=== PATIENT | female | born 1940 | race Caucasian/White ===

== ENCOUNTER 2017-12-11 12:19 | Inpatient (IN) | payer OTHER ==
[2017-12-11 14:10] LABS: Absolute Lymphocytes (CBC) 1.6 K/uL (0.7-4.9); Absolute Monocytes 1.3 K/uL (0.1-1.3); Absolute Neutrophil 16.3 K/uL (1.8-8.0); Basophils % 0.7 % (0-1.3); Eosinophils % 4.1 % (0-4.4); Hematocrit 28.7 % (36.0-45.0); MCH 26.8 pg (27.0-35.0); MPV 7.3 fL (7.6-11.3); Monocytes % 6.6 % (3.3-12.3); RBC Red Blood Cell Count 3.33 M/uL (3.86-4.86)
[2017-12-11 14:11] LABS: Potassium 4.5 mEq/L (3.6-5.0)
[2017-12-11 14:17] LABS: Albumin 2.8 g/dL (3.2-5.5); Bilirubin Direct 0.1 mg/dL (0-0.2); Bilirubin Total 0.7 mg/dL (0.3-1.2); Protein, Total 8.1 g/dL (6.0-8.3)
[2017-12-11] MEDS ORDERED: NA CHLORIDE 0.9% 500 ML ONE ×2 (14:18→18:49)
[2017-12-11 16:31] LABS: Urine Blood 3+ (NEG); Urine Glucose NEGATIVE (NEG); Urine Protein 3+ (NEG)
--- NOTE | 2017-12-11 16:42 | RAD REPORT ---
EXAM DESCRIPTION: Beth Single View12/11/2017 4:33 pm CLINICAL HISTORY: Cough COMPARISON: August 2017 FINDINGS: The lungs appear clear of acute infiltrate. The heart is normal size. Right hemidiaphragm remains elevated IMPRESSION: No acute abnormalities displayed
[2017-12-11 16:44] LABS: Urine Bacteria >50 /HPF (<20); Urine Culture Reflex Order REFLEXED; Urine RBC 20-50 /HPF (NONE SEEN)
[2017-12-11 17:42] LABS: Protime INR 1.23
--- NOTE | 2017-12-11 18:08 | ER ---
Nurse's Notes [facility] Name: Leslie Crockett Age: 77 yrs Sex: Female : 1940 Arrival Date: 12/11/2017 Time: 12:21 Bed 5 Private MD: Diagnosis: Urinary tract infection, site not specified-Failed antibiotic therapy;Anemia, unspecified;Dehydration;Acute kidney failure Presentation: 12/11 12:22 Presenting complaint: EMS states: Pt sent from [place] for abnormal lab ph values/elevated creatinine, hx of CVA w/ R sided deficits, A\T\O x 1-2 at baseline, VSS en route. Transition of care: patient was not received from another setting of care. Onset of symptoms was December 11, 2017. Risk Assessment: Do you want to hurt yourself or someone else? Patient reports no desire to harm self or others. Initial Sepsis Screen: Does the patient meet any 2 criteria? No. Patient's initial sepsis screen is negative. Does the patient have a suspected source of infection? No. Patient's initial sepsis screen is negative. Care prior to arrival: None. 12:22 Method Of Arrival: EMS: [facility] ph 12:22 Acuity: CINTHIA 3 ph Historical: - Allergies: 12:54 Iodine; ph 12:54 PENICILLINS; ph 12:54 sulfamethoxazole-trimethoprim; ph - Home Meds: 12:54 ascorbic acid (vitamin C) 500 mg tab [Active]; Baclofen 5mg Oral twice a day [Active]; ph Arginaid 4.5 gram-156 mg/9.2 gram oral pwpk [Active]; Cipro 500 mg Oral tab 1 tab every 12 hours [Active]; Cytomel 25 mcg Oral tab 1 tab once daily [Active]; levothyroxine 50 mcg tab 1 tab once daily [Active]; atorvastatin 40 mg Oral tab 1 tab once daily [Active]; hydrocodone-acetaminophen 10-325 mg Oral tab 1 tab Q8H PRN [Active]; metoprolol tartrate 50 mg Oral tab 1 tab 2 times per day [Active]; levothyroxine 50 mcg tab 1 tab once daily [Active]; Zoloft 50 mg Oral tab 1 tab once daily [Active]; Topamax Oral 1 tab 2 times per day [Active]; simethicone 80 mg Oral chew [Active]; temazepam 15 mg Oral cap 1 cap once daily [Active]; lisinopril 10 mg Oral tab 1 tab once daily [Active]; Plavix 75 mg Oral tab 1 tab once daily [Active]; famotidine 20 mg Oral tab once daily [Active]; calcium carbonate 200 mg calcium (500 mg) Oral chew daily [Active]; gabapentin 300 mg Oral cap 1 cap nightly [Active]; zinc sulfate 220 mg Oral tab [Active]; Naprosyn 500 mg Oral tab 1 tab 2 times per day [Active]; - PMHx: 12:54 Allergic rhinitis; Anxiety; constipation; CVA; Depression; GERD; hemiparesis; following ph 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 - Social history:: Smoking status: unknown. - Ebola Screening: : No symptoms or risks identified at this time. Screenin:54 Abuse screen: Denies threats or abuse. Denies injuries from another. Nutritional ph screening: No deficits noted. Tuberculosis screening: No symptoms or risk factors identified. Fall Risk No fall in past 12 months (0 pts). Secondary diagnosis (15 points) CVA, IV access (20 points). Ambulatory Aid- None/Bed Rest/Nurse Assist (0 pts). Gait- Weak (10 pts.). Mental Status- Overestimates/Forgets Limitations (15 pts.). Total Clark Fall Scale indicates High Risk Score (45 or more points). Fall prevention measures have been instituted. Side Rails Up X 2 Placed Close to Nursing Station Frequent Obs/Assessments Occuring. Assessment: 12:50 General: Appears in no apparent distress. comfortable, Behavior is cooperative, quiet. ph Pain: Denies pain. Neuro: Level of Consciousness is awake, alert, obeys commands, Oriented to person, Speech with expressive aphasia noted, hx of CVA. Cardiovascular: Capillary refill is > 3 seconds Patient's skin is warm and dry. Respiratory: Airway is patent Respiratory effort is even, unlabored. GI: Derm: Skin is intact, is fragile, is thin, Skin is pink, warm \T\ dry. Musculoskeletal: Circulation, motion, and sensation intact. Range of motion: limited in lower extremeties. 14:00 Reassessment: Patient appears in no apparent distress at this time. Pt resting quietly, ph watching TV, VSS, will continue to monitor. 15:00 Reassessment: Patient appears in no apparent distress at this time. Patient and/or ph family updated on plan of care and expected duration. Pain level reassessed. Pt straight cathed to obtain urine, tolerated well, urine very cloudy w/ strong odor noted, pt cleaned of urine and clean brief in place. 17:15 Reassessment: Patient appears in no apparent distress at this time. Patient and/or ph family updated on plan of care and expected duration. Pain level reassessed. Pt resting quietly lab at bedside to draw blood, VSS, awaiting lab results. 18:26 Reassessment: Patient appears in no apparent distress at this time. Patient and/or ph family updated on plan of care and expected duration. Pain level reassessed. Pt resting quietly, awaiting room assignment, VSS. 18:59 Reassessment: Patient appears in no apparent distress at this time. Patient and/or ph family updated on plan of care and expected duration. Pain level reassessed. Pt sitting up in bed, eating dinner, tolerating well. 19:41 Reassessment: Patient appears in no apparent distress at this time. Patient and/or aa1 family updated on plan of care and expected duration. Pain level reassessed. Patient denies pain at this time. Reassessment: Report given to Camelia on 4th floor. Neuro: Level of Consciousness is awake, alert, obeys commands. Respiratory: Respiratory effort is even, unlabored. Derm: Skin is pink, warm \T\ dry. Vital Signs: 12:26 BP 131 / 77; Pulse 68; Resp 18; Temp 97.7; Pulse Ox 100% on R/A; ph 14:00 BP 118 / 76; Pulse 68; Resp 18; Pulse Ox 98% on R/A; ph 15:15 BP 127 / 69; Pulse 61; Resp 18; Pulse Ox 98% on R/A; ph 16:30 BP 132 / 61; Pulse 72; Resp 18; Pulse Ox 99% on R/A; ph 17:47 BP 134 / 59; Pulse 88; Resp 18; Pulse Ox 98% on R/A; ph 18:30 BP 125 / 52; Pulse 78; Resp 16; Temp 98.7; Pulse Ox 98% on R/A; ph 19:40 BP 112 / 52; Pulse 80; Resp 18; Temp 98.8; Pulse Ox 100% on R/A; Pain 0/10; bp ED Course: 12:21 Patient arrived in ED. ph 12:22 Bright Rodriguez, WOVEN LABEL DESIGNER is PHCP. pm1 12:22 Darian Hsu MD is Attending Physician. pm1 12:26 Triage completed. ph 12:29 Kimberly Lovett, RN is Primary Nurse. ph 12:54 Arm band placed on Patient placed in an exam room. ph 12:55 Patient has correct armband on for positive identification. Placed in gown. Bed in low ph position. Call light in reach. Side rails up X 1. Pulse ox on. NIBP on. Warm blanket given. 13:50 Initial lab(s) drawn, by nc, sent to lab. Missed attempt(s): 22 gauge in left forearm. ph Bleeding controlled, band aid applied, catheter tip intact. 14:15 Straight cath inserted, using sterile technique, 16 Fr. Specimen obtained. Returned ph cloudy urine. Patient tolerated well. 14:40 Inserted saline lock: 22 gauge in left hand, using aseptic technique. ph 16:32 Chest Single View XRAY In Process Unspecified. EDMS 16:33 EKG done, by technology methodology consultant. reviewed by Bright Rodriguez NP. 3 17:49 No provider procedures requiring assistance completed. Patient admitted, IV remains in ph place. 18:04 Tamir Presley MD is Hospitalizing Provider. pm1 Administered Medications: 14:45 Drug: NS 0.9% 500 ml Route: IV; Rate: bolus; Site: left hand; ph 18:31 Follow up: Response: No adverse reaction; IV Status: Completed infusion ph 19:19 Drug: NS 0.9% 500 ml Route: IV; Rate: bolus; Site: left hand; ph 19:43 Follow up: IV Status: Infusion continued upon admission aa1 19:32 Drug: Meropenem 500 mg Route: IV; Rate: calculated rate; Site: left hand; bp 19:44 Follow up: IV Status: Infusion continued upon admission aa1 Outcome: 18:07 Decision to Hospitalize by Provider. pm1 20:18 Admitted to Med/surg accompanied by tech, via stretcher, room 406, with chart, Report aa1 called to Camelia 20:18 Condition: stable 20:18 Instructed on the need for admit. 20:19 Patient left the ED. aa1 Signatures: Dispatcher [employer] EDMalka Florian, RN RN aa1 Kimberly Lovett RN RN Bright Jose, WOVEN LABEL DESIGNER WOVEN LABEL DESIGNER pm1 Simon Deras RN RN Charu Cronell 3
--- NOTE | 2017-12-11 18:08 | EDPHYS ---
Physician Documentation [facility] Name: Leslie Crockett Age: 77 yrs Sex: Female : 1940 Arrival Date: 12/11/2017 Time: 12:21 Bed 5 Private MD: ED Physician Darian Hsu HPI: 12/11 16:10 This 77 yrs old Female presents to ER via EMS with complaints of Abnormal Lab pm1 Results. 16:10 Patient arrived by EMS from [facility]. Patient reports herself that she has pm1 no complaints. Was sent by correction staff due to abnormal labs that were drawn today. Hgb, BUN, and Cr were abnormal. . 16:10 Patient at her baseline per correction and EMS. pm1 Historical: - Allergies: 12:54 Iodine; ph 12:54 PENICILLINS; ph 12:54 sulfamethoxazole-trimethoprim; ph - Home Meds: 12:54 ascorbic acid (vitamin C) 500 mg tab [Active]; Baclofen 5mg Oral twice a day [Active]; ph Arginaid 4.5 gram-156 mg/9.2 gram oral pwpk [Active]; Cipro 500 mg Oral tab 1 tab every 12 hours [Active]; Cytomel 25 mcg Oral tab 1 tab once daily [Active]; levothyroxine 50 mcg tab 1 tab once daily [Active]; atorvastatin 40 mg Oral tab 1 tab once daily [Active]; hydrocodone-acetaminophen 10-325 mg Oral tab 1 tab Q8H PRN [Active]; metoprolol tartrate 50 mg Oral tab 1 tab 2 times per day [Active]; levothyroxine 50 mcg tab 1 tab once daily [Active]; Zoloft 50 mg Oral tab 1 tab once daily [Active]; Topamax Oral 1 tab 2 times per day [Active]; simethicone 80 mg Oral chew [Active]; temazepam 15 mg Oral cap 1 cap once daily [Active]; lisinopril 10 mg Oral tab 1 tab once daily [Active]; Plavix 75 mg Oral tab 1 tab once daily [Active]; famotidine 20 mg Oral tab once daily [Active]; calcium carbonate 200 mg calcium (500 mg) Oral chew daily [Active]; gabapentin 300 mg Oral cap 1 cap nightly [Active]; zinc sulfate 220 mg Oral tab [Active]; Naprosyn 500 mg Oral tab 1 tab 2 times per day [Active]; - PMHx: 12:54 Allergic rhinitis; Anxiety; constipation; CVA; Depression; GERD; hemiparesis; following ph 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 - Social history:: Smoking status: unknown. - Ebola Screening: : No symptoms or risks identified at this time. ROS: 16:10 Constitutional: Negative for fever, chills, and weight loss, Eyes: Negative for injury, pm1 pain, redness, and discharge, ENT: Negative for injury, pain, and discharge, Neck: Negative for injury, pain, and swelling, Cardiovascular: Negative for chest pain, palpitations, and edema, Respiratory: Negative for shortness of breath, cough, wheezing, and pleuritic chest pain, Abdomen/GI: Negative for abdominal pain, nausea, vomiting, diarrhea, and constipation, Back: Negative for injury and pain, : Negative for injury, bleeding, discharge, and swelling, MS/Extremity: Negative for injury and deformity, Skin: Negative for injury, rash, and discoloration, Neuro: Negative for headache, weakness, numbness, tingling, and seizure. 16:10 Unable to obtain ROS due to Baseline from CVA.. Exam: 16:10 Head/Face: Normocephalic, atraumatic. pm1 16:10 Eyes: Pupils equal round and reactive to light, extra-ocular motions intact. Lids and lashes normal. Conjunctiva and sclera are non-icteric and not injected. Cornea within normal limits. Periorbital areas with no swelling, redness, or edema. ENT: Nares patent. No nasal discharge, no septal abnormalities noted. Tympanic membranes are normal and external auditory canals are clear. Oropharynx with no redness, swelling, or masses, exudates, or evidence of obstruction, uvula midline. Mucous membranes moist. Neck: Trachea midline, no thyromegaly or masses palpated, and no cervical lymphadenopathy. Supple, full range of motion without nuchal rigidity, or vertebral point tenderness. No Meningismus. Chest/axilla: Normal chest wall appearance and motion. Nontender with no deformity. No lesions are appreciated. Cardiovascular: Regular rate and rhythm with a normal S1 and S2. No gallops, murmurs, or rubs. No pulse deficits. Respiratory: Lungs have equal breath sounds bilaterally, clear to auscultation and percussion. No rales, rhonchi or wheezes noted. No increased work of breathing, no retractions or nasal flaring. Abdomen/GI: Soft, non-tender, with normal bowel sounds. No distension or tympany. No guarding or rebound. No evidence of tenderness throughout. Back: No spinal tenderness. No costovertebral tenderness. Full range of motion. 16:10 MS/ Extremity: Pulses equal, no cyanosis. Neurovascular intact. Full, normal range of motion. 16:10 Constitutional: The patient appears in no acute distress, alert, awake, comfortable, non-diaphoretic, non-toxic, well groomed, frail. 16:10 Skin: Appearance: normal except for affected area, cellulitis, is not appreciated, Small well healed pressure sore to left lateral foot. 16:10 Neuro: Orientation: to person, able to answer most questions appropriately but takes time to annunciate her words. Motor: Unable to move lower extremities. Weak right arm that was affected by CVA. Vital Signs: 12:26 BP 131 / 77; Pulse 68; Resp 18; Temp 97.7; Pulse Ox 100% on R/A; ph 14:00 BP 118 / 76; Pulse 68; Resp 18; Pulse Ox 98% on R/A; ph 15:15 BP 127 / 69; Pulse 61; Resp 18; Pulse Ox 98% on R/A; ph 16:30 BP 132 / 61; Pulse 72; Resp 18; Pulse Ox 99% on R/A; ph 17:47 BP 134 / 59; Pulse 88; Resp 18; Pulse Ox 98% on R/A; ph 18:30 BP 125 / 52; Pulse 78; Resp 16; Temp 98.7; Pulse Ox 98% on R/A; ph 19:40 BP 112 / 52; Pulse 80; Resp 18; Temp 98.8; Pulse Ox 100% on R/A; Pain 0/10; bp MDM: 12:29 Patient medically screened. pm1 17:17 Data reviewed: vital signs. Data interpreted: Pulse oximetry: on room air is 98 %. pm1 Interpretation: normal. 18:01 Physician consultation: Tamir Presley MD was called at 18:02, was contacted at 18:02, pm1 regarding admission, patient's condition, would like medications started, [place]. 12/11 13:28 Order name: Basic Metabolic Panel; Complete Time: 16:03 pm1 12/11 13:28 Order name: CBC with Diff pm1 12/11 13:28 Order name: Hepatic Function; Complete Time: 16:03 pm1 12/11 13:28 Order name: Urine Microscopic Only; Complete Time: 16:47 pm1 12/11 16:05 Order name: Blood Culture Adult (2) pm1 12/11 16:05 Order name: Lactate pm1 12/11 16:05 Order name: Lipase; Complete Time: 17:53 pm1 12/11 16:05 Order name: Procalcitonin; Complete Time: 18:33 pm1 12/11 16:05 Order name: Protime (+inr); Complete Time: 18:33 pm1 12/11 16:05 Order name: Ptt, Activated; Complete Time: 18:33 pm1 12/11 16:05 Order name: Troponin (emerg Dept Use Only); Complete Time: 18:33 pm1 12/11 16:05 Order name: Urine Culture pm1 12/11 16:06 Order name: Blood Culture EDAR 12/11 16:06 Order name: Lactate; Complete Time: 17:45 EDMS 12/11 16:05 Order name: Chest Single View XRAY; Complete Time: 16:47 pm1 12/11 16:20 Order name: Urine Dipstick--Ancillary (enter results) 1 12/11 16:20 Order name: Urine Dipstick-Ancillary; Complete Time: 16:47 EDMS 12/11 17:53 Order name: EKG Electrocardiogram EDMS 12/11 18:25 Order name: CONS Pharmacy Consult EDMS 12/11 18:25 Order name: Basic Metabolic Panel EDMS 12/11 18:25 Order name: Basic Metabolic Panel EDMS 12/11 18:25 Order name: Basic Metabolic Panel EDMS 12/11 18:25 Order name: Basic Metabolic Panel EDMS 12/11 18:25 Order name: CBC with Automated Diff EDMS 12/11 18:25 Order name: CBC with Automated Diff EDMS 12/11 18:25 Order name: CBC with Automated Diff EDMS 06/12 18:25 Order name: CBC with Automated Diff EDMS 12/11 13:28 Order name: IV Saline Lock; Complete Time: 15:13 pm1 12/11 13:28 Order name: Labs collected and sent; Complete Time: 13:59 pm1 12/11 13:28 Order name: Urine Dipstick-Ancillary (obtain specimen); Complete Time: 16:11 pm1 12/11 16:05 Order name: Accucheck; Complete Time: 18:31 pm1 12/11 16:05 Order name: Cardiac monitoring; Complete Time: 16:38 pm1 12/11 16:05 Order name: EKG - Nurse/Tech; Complete Time: 18:32 pm1 12/11 16:05 Order name: IV Saline Lock - Large Bore; Complete Time: 16:12 pm1 12/11 16:05 Order name: O2 Per Protocol; Complete Time: 16:12 pm1 12/11 16:05 Order name: O2 Sat Monitoring; Complete Time: 16:12 pm1 12/11 18:25 Order name: Heart Healthy EDMS Administered Medications: 14:45 Drug: NS 0.9% 500 ml Route: IV; Rate: bolus; Site: left hand; ph 18:31 Follow up: Response: No adverse reaction; IV Status: Completed infusion ph 19:19 Drug: NS 0.9% 500 ml Route: IV; Rate: bolus; Site: left hand; ph 19:43 Follow up: IV Status: Infusion continued upon admission aa1 19:32 Drug: Meropenem 500 mg Route: IV; Rate: calculated rate; Site: left hand; bp 19:44 Follow up: IV Status: Infusion continued upon admission aa1 Disposition: 12/12 15:25 Co-signature as Attending Physician, Darian Hsu MD I agree with the assessment and sarah plan of care. Disposition: 12/11/17 18:07 Hospitalization ordered by Tamir Presley for Inpatient Admission. Preliminary diagnosis are Urinary tract infection, site not specified - Failed antibiotic therapy, Anemia, unspecified, Dehydration, Acute kidney failure. - Bed requested for Telemetry/MedSurg (Inpatient). - Status is Inpatient Admission. aa1 - Condition is Stable. - Problem is new. - Symptoms have improved. UTI on Admission? Yes Signatures: Dispatcher [facility] Marcy Snow RN RN dw Malka Hernández RN RN aa1 Darian Hsu MD MD cha Smirch, Shelby, VIRGIE RN Kimberly Lovett RN RN Bright Rodriguez, SOPHIA PSYCHOLOGIST CLINICAL pm1 Simon Deras, RN RN bp Corrections: (The following items were deleted from the chart) 12/11 19:19 18:07 Hospitalization Ordered by Tamir Presley MD for Inpatient Admission. Preliminary dw diagnosis is Urinary tract infection, site not specified - Failed antibiotic therapy; Anemia, unspecified; Dehydration; Acute kidney failure. Bed requested for Telemetry/MedSurg (Inpatient). Status is Inpatient Admission. Condition is Stable. Problem is new. Symptoms have improved. UTI on Admission? Yes. pm1 20:19 19:19 12/11/2017 18:07 Hospitalization Ordered by Tamir Presley MD for Inpatient aa1 Admission. Preliminary diagnosis is Urinary tract infection, site not specified - Failed antibiotic therapy; Anemia, unspecified; Dehydration; Acute kidney failure. Bed requested for Telemetry/MedSurg (Inpatient). Status is Inpatient Admission. Condition is Stable. Problem is new. Symptoms have improved. UTI on Admission? Yes. dw
[2017-12-11] MEDS ORDERED: ONDANSETRON 4 MG/2 ML VIAL IV PRN (18:20)
[2017-12-11] MEDS: NA CHLORIDE 0.9% 1,000 ML IV SCH ×2 (19:00→21:36)
[2017-12-11 21:26] VITALS: BMI 24.4
[2017-12-11] MEDS: ENOXAPARIN 30 MG/0.3 ML SQ SCH (21:35)
[2017-12-11 22:23] LABS: Blood Morphology Comment NOTED (NOT SEEN); Hypochromasia 1+; Platelet Estimate INCR
[2017-12-11] MEDS: ACETAMINOPHEN 500 MG TAB PO PRN (22:57)
[2017-12-12] MEDS ORDERED: Meropenem 500 MG/100 ML BAG ONE (00:13)
[2017-12-12] MEDS ORDERED: Meropenem 500 MG VIAL IV SCH (01:00)
[2017-12-12] MEDS: Meropenem 500 MG in NA CHLORIDE 0.9% 100 ML IV SCH ×3 (01:24→21:30)
--- NOTE | 2017-12-12 02:57 | HP ---
Date of Admission: 12/11/2017 Code Status: Full code. Chief Complaint: Altered mental status, UTI, sepsis. History Of Present Illness: The history is limited due to patient's medical condition. No family pr esent. The patient's most of the history is taken from previous records and ER staff. The patient i s a 77-year-old female who is a resident of a senior living with past medical history of CVA with para plegia, hypertension, anemia, hypothyroidism, hyperlipidemia, who comes in from the senior living for altered mental status. The patient was recently treated for UTI with Cipro. However, has failed out patient treatment. The patient did appear to be dehydrated. Her symptoms are constant, moderate, pr ogressively worsening. Upon arrival to the ER, her workup revealed a white count of 20,000 with left shift. Creatinine was elevated at 2.27. Procalcitonin and lactate were negative. UA was positive. The patient was started on IV fluids and IV antibiotics and referred for admission. When the patie nt was seen in the ER, she was awake, alert, oriented to self in some mild distress. Past Medical History: 1.History of CVA with paraplegia. 2.Hemiplegia. 3.Hyperlipidemia. 4.Hypothyroidism. 5.Hypertension. Past Surgical History: Cholecystectomy, hysterectomy, right nephrostomy tube, bilateral knee repair, right arm repair. Allergies: TO IODINE, CAUSE HAVE HIVES AND RASH. PENICILLIN CAUSES HIVES AND RASH. SULFAMETHOXAZOL E FROM BACTRIM CAUSES NAUSEA AND VOMITING. TRIMETHOPRIM FROM BACTRIM CAUSES NAUSEA AND VOMITING. Family History: Noncontributory. Unable to be obtained at this time. Social History: Nonsmoker and nondrinker. Lives at senior living. Paraplegic. Needs assistance wit h activities of daily living. Review of Systems: Unable to be obtained. Physical Examination: Vital Signs: Blood pressure 131/77, pulse 68, respirations 18, temperature 97.7, O2 saturation 100% on room air. General: Awake, alert, oriented to self, some mild distress, ill-appearing elderly female. HEENT: Normocephalic, atraumatic. PERRLA. EOMI. Dry mucous membranes. Oropharynx is clear. Poor dentition. Conjunctiva anicteric. Neck: Supple. No JVD. Trachea midline. CV: S1 and S2. No murmurs. Regular rate and rhythm. Peripheral pulses are present. Respiratory: Moving air well bilaterally. No wheezing. No stridor. Gastrointestinal: Abdomen is soft, nontender, nondistended. Positive bowel sounds. No guarding or rigidity. Extremities: No clubbing, cyanosis. Pedal edema is present. No calf tenderness. Neurologic: The patient is paraplegic, has right hemiparesis. The patient is aphasic. Skin: No rashes. Normal skin turgor. Psych: Deferred. Laboratory Data: Urinalysis; 3+ blood, positive nitrites, 3+ leukocyte esterase, 20-50 rbc's, too nu merous to count wbc's, greater than 50 bacteria, 3+ protein. Sodium 138, potassium 4.5, chloride 112 , CO2 of 20. BUN 47, creatinine 2.27, glucose 102, lactate 8.2, calcium 9.1, albumin 2.8, procalcito cong 0.07. Troponin less than 0.03. Lipase 35. INR 1.23. WBC 20, H and H 8.9 and 28.7, platelets 4 65, neutrophils 80.6. Diagnostic Data: Chest x-ray shows no acute abnormalities. Plate personally reviewed. Assessment And Plan: A 77-year-old female with; 1.Sepsis secondary to urinary tract infection. We will continue with IV fluids, IV antibiotics. Ob tain blood cultures and urine culture. Lactate, procalcitonin negative. 2.Urinary tract infection. Acute cystitis with hematuria. We will continue with IV antibiotics. T he patient has allergies to penicillin. We will use meropenem. Follow up with urine culture. The p atient needs to rule out neurogenic bladder. 3.History of cerebrovascular accident with right hemiplegia. We will continue home medications. 4.Essential hypertension. Resume home medications as appropriate. 5.Hyperlipidemia. Continue statin. 6.Hypothyroidism. Continue Synthroid. 7.Acute kidney injury. We will continue with IV fluids. Monitor creatinine. We will obtain Nephro logy consultation. Likely secondary to acute dehydration and prerenal azotemia. 8.Anemia. Monitor H and H. No apparent source of bleeding at this time. 9.Gastrointestinal and deep venous thrombosis prophylaxis with PPI and Lovenox. Plan: Admit the patient to Med-Surg, place as inpatient. JUSTINO Voice ID: [id number]
[2017-12-12 04:47] LABS: Absolute Lymphocytes (CBC) 1.7 K/uL (0.7-4.9); Absolute Monocytes 1.1 K/uL (0.1-1.3); Absolute Neutrophil 12.9 K/uL (1.8-8.0); Basophils % 0.9 % (0-1.3); Eosinophils % 3.7 % (0-4.4); Hematocrit 25.3 % (36.0-45.0); Lymphocytes % 10.5 % (15.3-44.8); MCH 26.6 pg (27.0-35.0); MCV 85.6 fL (80-100); MPV 7.4 fL (7.6-11.3); Monocytes % 6.7 % (3.3-12.3); RBC Red Blood Cell Count 2.95 M/uL (3.86-4.86)
[2017-12-12 04:59] LABS: Potassium 3.8 mEq/L (3.6-5.0)
--- NOTE | 2017-12-12 06:21 | EKG ---
Test Date: 2017-12-11 Test Time: 16:21:45 Mold Making Supervisor: SANIA MEASUREMENT RESULTS: Intervals: Rate: 67 WY: 166 QRSD: 82 QT: 418 QTc: 441 [place]: P: 70 WY: 166 QRS: -18 T: 27 INTERPRETIVE STATEMENTS: Normal sinus rhythm Inferior infarct, age undetermined Anterior infarct, age undetermined Abnormal ECG Compared to ECG 08/16/2017 14:52:02 No significant changes Electronically Signed On 12-12-17 06:19:57 CDT by Ronn Pedraza
[2017-12-12] MEDS: NA CHLORIDE 0.9% 1,000 ML IV SCH ×2 (06:33→15:00)
[2017-12-12 09:44] LABS: CKMB Creatine Kinase MB 2.3 ng/ml (0.3-4.0); Uric Acid 6.3 mg/dL (2.6-8.0)
[2017-12-12] MEDS: ENOXAPARIN 30 MG/0.3 ML SQ SCH (10:00)
[2017-12-12] MEDS ORDERED: CLOPIDOGREL 75 MG TABLET PO SCH (10:41)
[2017-12-12] MEDS ORDERED: LISINOPRIL 10 MG TAB PO SCH (10:41)
[2017-12-12] MEDS ORDERED: SIMETHICONE 80 MG TAB PO PRN (10:41)
[2017-12-12] MEDS: LEVOTHYROXINE SOD 0.05 MG TABLET PO SCH (11:16)
[2017-12-12] MEDS: FAMOTIDINE 20 MG TAB PO SCH (11:16)
[2017-12-12] MEDS: HYDROCODONE/APAP 10/325 TAB PO PRN (11:25)
[2017-12-12] MEDS: BACLOFEN 10 MG TAB PO SCH ×2 (11:27→21:31)
--- NOTE | 2017-12-12 11:37 | RAD REPORT ---
EXAM DESCRIPTION: US - Renal Ultrasound-Complete - 12/12/2017 11:05 am CLINICAL HISTORY: Acute kidney insufficiency. COMPARISON: CT 08/17/2017 FINDINGS: The examination was limited due to difficulty with patient cooperation and the patient's c urrent clinical condition. Moderate right hydronephrosis is likely present. Caliceal stone is seen on the right measuring 6 mm. Mild left renal collecting system dilatation is also seen. The right kidney measures 9.6 x 6.4 x 5.8 cm. The left kidney measures 10.0 x 6.4 x 6.2 cm. The urinary bladder is decompressed and incompletely assessed. IMPRESSION: Moderate right hydronephrosis with caliceal stones suspected. Mild left hydronephrosis.
--- NOTE | 2017-12-12 12:03 | CON ---
Date of Consultation: 12/12/2017 Reason For Consultation: Elevated BUN and creatinine. History Of Present Illness: All the information has been obtained from the daughter by bedside. Saadia greenfield is a pleasant 77-year-old female with significant past medical history of CVA, quadriplegia, nursin g home resident, hypertension, hypothyroidism, recurrent UTI. The patient was in her regular state o f health, apparently in the correction started to have altered mental status away from her baseline , getting confused. The patient recently treated with Cipro for UTI, has multiple UTIs in the last f ew month. Primary workup show elevation in BUN and creatinine. For that reason, we have been consul melvin. On the reviewing the record, there is no mention for any kidney disease before reviewing. Crea tinine within normal limit few months ago. Home medications or correction medications; the patient on lisinopril, otherwise no other insulting medications. Past Medical History: Includes: 1.Hypertension. 2.Hyperlipidemia. 3.CVA, bedbound. 4.[facility] resident. 5.Recurrent UTI. 6.Hypothyroidism. Medications: Home medications include: 1.Calcium with vitamin D. 2.Levothyroxine. 3.Atorvastatin. 4.Gabapentin. 5.Pepcid. 6.Plavix. 7.Temazepam. 8.Simethicone. 9.Sertraline. 10.Metoprolol 50 b.i.d. 11.Lisinopril. Current medications in the hospital include: 1.Tylenol. 2.Atorvastatin. 3.Gabapentin 300 b.i.d. 4.Hydrocodone. 5.Levothyroxine. 6.Lisinopril 10. 7.Metoprolol. 8.Zoloft. 9.Temazepam. 10.Topamax. Allergies: TO PENICILLIN, IODINE, SULFA. Social History: Lives in correction. Denies smoking. Denies drinking. Denies drug abuse. Family History: Positive for hypertension. Review of Systems: Head and Neck: No red eye. No ear pain. GI: No nausea. No vomiting. : No polyuria. No dysuria. No hematuria. CATALOG LIBRARIAN: No vaginal discharge. Respiratory: No shortness of breath. Cardiovascular: No chest pain. Neuro: Confused. Quadriplegia. Endocrine: No polydipsia. Skin: No rash. Musculoskeletal: Generalized ache. DICTATION ENDS HERE JUDY Voice ID: [id number] Report ID: [id number]
--- NOTE | 2017-12-12 12:13 | CON ---
Date of Consultation: 12/12/2017 Addendum: Physical Examination: Vital Signs: When I saw the patient, blood pressure 154/62, pulse of 85, afebrile. Chest: Clear to auscultation. Heart: S1, S2. Systolic murmur. Abdomen: Soft, nontender. Extremities: No edema. Neuro: Quadriplegia. Laboratory Data: WBC 16.5, H and H 7.9/25.3, platelets 399. Sodium 141, potassium 3.8, bicarb 17, c hloride 115, BUN 45, creatinine 2.1, calcium 8.2. Procalcitonin 0.1. Urinalysis; specific gravity o f 1010, RBC 50, WBC too numerous to count. Assessment And Plan: 1.Acute kidney injury secondary to prerenal, proteinuric, nonnephrotic, superimposed with toxic acut e tubular necrosis, and TINO inhibitor use, and dehydration. I agree with IV fluid. I am going to go ahead and get the renal ultrasound to evaluate the structure of the kidney and to evaluate for the r ecurrent urinary tract infection. Given the proteinuria and acute kidney injury and anemia, light ch ain disease needs to be ruled out. I am going to go ahead and send for anemia workup, send for SPEP and UPEP. We will quantify the proteinuria and we will follow up. 2.Hypertension, controlled, not optimal. We will discontinue TINO inhibitor. Continue hydration. W e will adjust the blood pressure medications. 3.Recurrent urinary tract infection, multi-organism. Last infection back in August, it was Klebsi diaz pneumonia. We will continue antibiotic. We will follow up culture. We will send for ultrasoun d to evaluate the structure. 4.Cerebrovascular accident. Continue supportive treatment. 5.Acidosis, non-anion gap secondary to renal failure. I do not see any need for bicarb supplement r ight now. We will start hydration. We will follow up. Thank you, Dr. Presley for allowing us to participate in the care of your patient. JUDY Voice ID: [id number] Report ID: [id number]
[2017-12-12 15:19] LABS: UR CREAT 24.6 mg/dL (20-320); Urine Protein/Creatinine Ratio 18.9 ratio (<0.15)
--- NOTE | 2017-12-12 16:03 | RAD REPORT ---
EXAM DESCRIPTION: CT - Abdomen Pelvis Wo Contrast - 12/12/2017 3:31 pm CLINICAL HISTORY: Distal ureteral calculus COMPARISON: August 2017 TECHNIQUE: Axial [address] imaging of the abdomen and pelvis was performed without IV contrast. No IV contrast was given because of allergy, abnormal renal function, patient refusal or physician re quest. No oral contrast administered. All CT scans are performed using dose optimization technique as appropriate and may include automated exposure control or mA/KV adjustment according to patient size. FINDINGS: Scarring or atelectasis changes present in the lung bases. Noncalcified 9 millimeter nodul e posterior right lung base is unchanged from August. Atelectasis in each posterior gutter. The liver, spleen and pancreas show no suspicious findings on non-contrast imaging. Gallbladder and b iliary tree are also without suspicious finding. Mild to moderate hydronephrosis of the right pelvis and ureter down to the UVJ. Valdivia of the right ur eter are thickened. The dilatation is similar to July. Wall thickening is more pronounced than see n in August. A 6 millimeter stone is seen layering in the dependent portion of the dilated pelvis. A 7 millimeter calcification is present in the posterior cortex in the mid right kidney. A 4.1 centim eter upper pole right renal cyst is present and stable. No hydronephrosis of the proximal left collecting system. There is mild dilatation of the distal left ureter similar to comparison. No obstructing calculus in either kidney. Punctate pyramid or caliceal calcifications noted on the left. Urinary bladder is fully contracted around a Alvarez catheter. Bladd er content is hyperdense. This could be blood or mass. The contracted state precludes any further ass essment. No significant adrenal finding. Isodense renal masses and pyelonephritis cannot be excluded in the absence of IV contrast. No gastric dilatation or gastric wall thickening. No suspicious small bowel finding. From cecum throu gh descending colon no acute colon process seen. Moderate diverticulosis of the sigmoid colon without diverticulitis. There is circumferential wall thickening of the rectum primary row along the posteri or and left lateral valdivia. No free air, free fluid or inflammatory stranding. No hernia, mass or bulky lymphadenopathy. No suspicious bony findings. Disc and bony degenerative changes are present. IMPRESSION: Mild to moderate right-sided hydronephrosis without obstructing calculus. This extends f rom the kidney to the UVJ similar to prior imaging. Nonobstructing 6 mm calcification is seen layering on the posterior wall of the dilated right renal p shadi. Alvarez catheter is in place with the urinary bladder fully contracted. Hyperdense material within the contracted lumen could be blood or mass. This can be correlated with history and exam findings. Posterior and left lateral wall thickening of the rectum suspicious for proctitis. Patient has promin ent sigmoid diverticulosis without diverticulitis. Full assessment is limited is the absence of IV contrast.
[2017-12-12] MEDS: LIOTHYRONINE SOD 25 MCG TAB PO SCH (16:05)
--- NOTE | 2017-12-12 17:28 | PN ---
Date of Progress Note: 12/12/2017 Subjective: The patient is seen and examined. Chart reviewed and case discussed with Dr. Simpson. The patient's daughter at the bedside. Treatment plan explained. All questions answered. The hubert ent does not have any specific complaint, however, is aphasic. Review of Systems: Limited due to the patient's medical condition. Medications: Reviewed. Physical Examination: Vital Signs: Temperature 97.2, heart rate 85, blood pressure 154/62, respirations 18, O2 95% on room air. General: Awake, alert, not in any acute distress, aphasic, elderly female, somewhat ill-appearing. CV: S1 and S2. Regular rate and rhythm. Peripheral pulses present. Respiratory: Clear to auscultation bilaterally. No wheezing. No stridor. No use of accessory musc les. Gastrointestinal: Abdomen is soft, nondistended. Bowel sounds positive. Extremities: No clubbing, cyanosis. Trace pedal edema. Neuro: The patient is paraplegic, right-sided hemiplegia, aphasic. Laboratory Data: Sodium 141, potassium 3.8, chloride 115, CO2 17, BUN 45, creatinine 2.18, glucose 9 8, calcium 8.2. WBC 16.5, H and H 7.9 and 25.3, platelets 399, neutrophils 78%. Urine culture; 20,0 00 colony-forming units of 3+ gram-negative rods. Blood cultures pending. Renal ultrasound shows mo derate right-sided hydronephrosis with calyceal stones suspected, mild left hydronephrosis. Assessment And Plan: A 77-year-old female with: 1.Sepsis secondary to urinary tract infection. 2.Urinary tract infection, acute cystitis with hematuria. We will continue with IV meropenem. The patient is growing gram-negative rods in the culture. She is allergic to penicillin. 3.Nephrolithiasis. We will consult Neurology. The patient does have hydronephrosis bilaterally. M ay need stent. 4.History of cerebrovascular accident with right hemiplegia. Continue home medications. 5.Essential hypertension, stable. 6.Hyperlipidemia, on statin. 7.Hypothyroidism. Continue Synthroid. 8.Acute kidney injury, creatinine improving. We will continue IV fluid hydration. Likely secondary to dehydration, prerenal azotemia, and obstruction due to nephrolithiasis. 9.Anemia. The patient did have some drop in her H and H, likely hemodilutional. No apparent source of bleeding. We will check Hemoccult blood. 10.Gastrointestinal and deep venous thrombosis prophylaxis with PPI and Lovenox. Plan: Neurology consultation. Obtain Hemoccult test. Wound care for possible sacral decubitus mary pulido SA/JONY Voice ID: [id number] Report ID: [id number]
--- NOTE | 2017-12-12 18:13 | CON ---
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 She is now admitted for IV. Her white count was 20,000, had a left shift. Creatinine was elevated at 2.2. She has a history of kidney stones. Recently had a kidney stone shocked and removed back in August 2017. History of right hydroureter. Ultrasound showed right hydronephrosis, so I obtained a CT scan to see if she may be trying to pass another stone. Past Medical History: CVA with paraplegia, hemiplegia, hyperlipidemia, hypothyroidism, and hypertension. Past Surgical History: Cholecystectomy, hysterectomy, right nephrostomy tube, bilateral knee repair, right arm repair. Allergies: TO IODINE CAUSING RASH AND HIVES, PENICILLIN CAUSE HIVES AND RASH, BACTRIM CAUSES NAUSEA AND VOMITING, TRIMETHOPRIM CAUSES NAUSEA AND VOMITING ALSO. Family History: Noncontributory. Social History: Nonsmoker and nondrinker. Lives in custodial, paraplegic. Uses assistance with daily living. Review of Systems: Unable to obtain. Physical Examination: Vital Signs: 94.7, 97, 18, 157/70, sats 98%. HEENT: Atraumatic, normocephalic. Lungs: Clear. Heart: S1, S2. Abdomen: Soft, nontender. Genitourinary: Urine was pretty bloody. Alvarez catheter _ to some irrigation. Laboratory Data: Shows white count down from 20,000 to 16.5, H and H are 7.9 and 25, platelet count 399. Coags; PT 54, INR 1.2, PTT 42. Chemistry; sodium 141, potassium 3.8, chloride 111, carbon dioxide 17, BUN 45, creatinine 2.2, GFR 22, glucose __. Urine was positive for blood, positive for nitrates, positive for leukocyte esterase. Microbiology is growing 100,000 gram-negative rods. Assessment And Plan: Continue management, IV fluids, IV meropenem 500 mg q.12 hours, irrigate Alvarez catheter. We will obtain plain CT to evaluate for stones. DEWEY/JONY Voice ID: [id number] Report ID: [id number] VILMA
[2017-12-12] MEDS ORDERED: GABAPENTIN 300 MG CAP PO SCH (21:00)
[2017-12-12] MEDS: SODIUM CHL 0.9% IRR SOLN 2000 ML IRR SCH (21:29)
[2017-12-12] MEDS: ATORVASTATIN 40 MG TAB PO SCH (21:30)
[2017-12-12] MEDS: METOPROLOL TAR 50 MG TAB PO SCH (21:31)
[2017-12-12] MEDS: SERTRALINE HCL 50 MG TAB PO SCH (21:31)
[2017-12-12] MEDS: TEMAZEPAM 15 MG CAP PO SCH (21:31)
[2017-12-12] MEDS: TOPIRAMATE 25 MG TAB PO SCH (21:32)
[2017-12-12] MEDS: GABAPENTIN 100 MG CAP PO SCH (21:33)
[2017-12-13] MEDS: NA CHLORIDE 0.9% 1,000 ML IV SCH ×3 (01:00→21:00)
[2017-12-13] MEDS: SODIUM CHL 0.9% IRR SOLN 2000 ML IRR SCH ×8 (01:42→22:23)
[2017-12-13 05:22] LABS: Absolute Lymphocytes (CBC) 1.2 K/uL (0.7-4.9); Absolute Neutrophil 9.8 K/uL (1.8-8.0); Eosinophils % 6.2 % (0-4.4); Hematocrit 21.5 % (36.0-45.0); MCH 27.4 pg (27.0-35.0); MCV 84.4 fL (80-100); MPV 7.3 fL (7.6-11.3); Monocytes % 7.6 % (3.3-12.3); RBC Red Blood Cell Count 2.55 M/uL (3.86-4.86)
[2017-12-13 05:41] LABS: Albumin 2.3 g/dL (3.2-5.5); Potassium 3.9 mEq/L (3.6-5.0)
[2017-12-13 06:26] LABS: Hematocrit 21.1 % (36.0-45.0)
[2017-12-13 06:30] LABS: Ferritin 143.6 ng/ml (11.0-306.8); Folic Acid, (Folate) 6.3 ng/ml (>5.21)
[2017-12-13 06:31] LABS: Thyroid Stimulating Hormone 77.1 uIU/mL (0.34-5.60)
[2017-12-13] MEDS: LEVOTHYROXINE SOD 0.05 MG TABLET PO SCH (06:52)
[2017-12-13] MEDS ORDERED: NA CHLORIDE 0.9% 250 ML IV SCH (07:00)
--- NOTE | 2017-12-13 08:44 | RAD REPORT ---
EXAM DESCRIPTION: RAD - Chest Single View - 12/12/2017 11:35 pm CLINICAL HISTORY: PICC line placement. COMPARISON: None. FINDINGS: Portable chest was obtained following placement of a left upper extremity PICC line. The c atheter tip is in the SVC.
[2017-12-13] MEDS: BACLOFEN 10 MG TAB PO SCH ×2 (09:40→21:30)
[2017-12-13] MEDS: TOPIRAMATE 25 MG TAB PO SCH ×2 (09:40→21:30)
[2017-12-13] MEDS: METOPROLOL TAR 50 MG TAB PO SCH ×2 (09:40→22:22)
[2017-12-13] MEDS: LIOTHYRONINE SOD 25 MCG TAB PO SCH (09:41)
[2017-12-13] MEDS: FAMOTIDINE 20 MG TAB PO SCH (09:41)
[2017-12-13] MEDS: Meropenem 500 MG in NA CHLORIDE 0.9% 100 ML IV SCH ×2 (12:01→21:25)
[2017-12-13] MEDS ORDERED: WATER FOR INJ,STERILE 30 ML ONE (12:38)
[2017-12-13] MEDS: SOD FERRIC GLUC COMPLX/SUCROSE 250 MG in NA CHLORIDE 0.9% 250 ML IV SCH (13:41)
[2017-12-13] MEDS: NACHLORIDE 0.45% 1,000 ML with NA BICARB 8.4% 50 MEQ IV SCH ×4 (13:42→22:53)
[2017-12-13] MEDS: TAMSULOSIN 0.4 MG SR CAP PO SCH (13:42)
[2017-12-13] MEDS: HYDROCODONE/APAP 10/325 TAB PO PRN (14:01)
--- NOTE | 2017-12-13 14:07 | PN ---
Date of Progress Note: 12/13/2017 Subjective: The patient feeling slightly better. The patient found to have hematuria with clot in t he urine. Had triple-way Alvarez with irrigation. Physical Examination: Vital Signs: When I saw the patient, blood pressure 144/61, pulse of 77, afebrile. Chest: Clear to auscultation. Heart: S1, S2. Regular. Abdomen: Soft, nontender. Extremities: No edema. Laboratory Data: WBC 12.9, H and H 6.7/21.1. Sodium 142, potassium 3.9, bicarb 19, BUN 37, creatini ne down to 1.7, calcium 8, TSAT of 10, ferritin of 143, TSH of 77. Folate 6.3, B12 of 472. Current Medications: The patient on its include meropenem, baclofen, atorvastatin, metoprolol 50 b.i .d., gabapentin, IV fluid of normal saline, Pepcid, simethicone, levothyroxine, hydrocodone. Assessment And Plan: 1.Acute kidney injury secondary to obstructive uropathy, poor perfusion, acute tubular necrosis, com plicated urinary tract infection with sepsis. I agree with Urology. We will continue continuous ashley dder irrigation. I am going to start the patient on bicarb drip to establish better flow and to avoi d further clotting. We will keep holding on TINO inhibitor for the time being and we will follow up. I going to add Flomax to her prescription. 2.Iron deficiency anemia. We will consider transfusion and I will start the patient on IV iron. 3.Urinary tract infection complicated secondary to multidrug-resistant Proteus mirabilis, complicate d with obstruction. Continue current antibiotic, meropenem. We will follow up with primary. 4.Item acidosis. Given the presence of clot and hematuria, I am going to start the patient on bicar b. 5.Hypothyroidism. We will increase her levothyroxine to 75 per hour and we will follow up the patie nt. 6.Obstructive uropathy as above. 7.Hyponatremia. We will adjust the IV fluid. Case discussed with Dr. Presley, agreed on the plan. JAMES/JONY Voice ID: [id number] Report ID: [id number]
--- NOTE | 2017-12-13 17:08 | PN ---
Date of Progress Note: 12/13/2017 Subjective: The patient seen and examined, chart reviewed, and case discussed with RN and Dr. Park. The patient doing okay. No acute events overnight. Still having gross hematuria. Her catheter kwok d clotted and therefore had to be replaced before continuing CBI. Daughter at the bedside, treatment plan explained, all questions answered. Review of Systems: Limited due to patient's aphasia, however, no complaints. Medications: List reviewed. Objective: Vital Signs: Temperature 96.8, heart rate 77, blood pressure 144/61, respirations 18, an d O2 100% on room air. General: Awake, alert, no acute distress, elderly female. CV: S1, S2. Regular rate and rhythm. Peripheral pulses present. Respiratory: Moving air well bilaterally. No wheezing. Gastrointestinal: Abdomen is soft, nontender, nondistended. Positive bowel sounds. Extremities: No clubbing or cyanosis. Trace pedal edema. NEURO: The patient is paraplegic. Right hemiparesis. Laboratory Data: Sodium 142, potassium 3.9, chloride 117, CO2 19, BUN 37, creatinine 1.73, glucose 9 6, and calcium 8. Iron 20, total iron binding capacity 192, transferrin 137, ferritin 143, and album in 2.3. TSH 77, free T4 0.43, and vitamin B12 472. Serum folate 6.3. H and H 6.7, 21.1, WBCs 12.9, platelets 409, and neutrophils 76.2%. Urine culture showing Proteus mirabilis that is ESBL producin g. blood cultures, no growth to date. Chest x-ray, PICC line in place. Assessment And Plan: A 77-year-old female with; 1.Sepsis secondary to urinary tract infection. 2.Urinary tract infection, acute cystitis with hematuria. Urine culture growing Proteus mirabilis t hat is extended-spectrum beta-lactamase producing. 3.Nephrolithiasis. Urology on board. CT scan does show hydronephrosis. 4.History of cerebrovascular accident with right hemiplegia. 5.Essential hypertension, stable. 6.Hyperlipidemia, continue statin. 7.Hypothyroidism. TSH is elevated at 77. We will adjust Synthroid dose. 8.Acute kidney injury creatinine improving. Continue IV fluid hydration. May be secondary to obstr uction with nephrolithiasis. 9.Acute blood loss anemia, likely due to gross hematuria. 10.Hematuria. We will continue with continuous bladder irrigation. 11.Gastrointestinal and deep venous thrombosis prophylaxis with PPI and SCDs. No chemical anticoagu lation due to hematuria. /JONY Voice ID: [id number] Report ID: [id number]
--- NOTE | 2017-12-13 17:47 | PN ---
Subjective: The patient is doing well. Objective: Her catheter was exchanged to 22-Georgian 3-way catheter. A few clots came out, but now her urine is crystal clear. We have slowed down the CBI. Her urine culture grew out Proteus mirabilis with an extended-spectrum beta lactamase. Sensitivity shows Augmentin, cefoxitin, cefotetan, Unasyn, Augmentin, piperacillin-tazobactam, meropenem, and amikacin. Plan: Plan is to continue the IV antibiotics. We will also continue the CBI going at a slow rate. DEWEY/JONY Voice ID: [id number] Report ID: [id number] VILMA
--- NOTE | 2017-12-13 18:38 | CON ---
History Of Present Illness: This is a 77-year-old female, well known to me from previous admissions. The patient is coming in this time with ESBL urinary tract infection, currently being treated with meropenem. The patient was found to be having altered mental status and urosepsis, and she was seen in the emergency room on 12/11. The patient denies any abdominal pain, headache, nausea, vomiting, c hest pain. Past Medical History: Significant for recent stroke with right-sided hemiparesis, hyperlipidemia, hy pothyroidism, hypertension. Past Surgical History: Includes cholecystectomy, hysterectomy, right nephrostomy tube, bilateral kne e repair, right arm surgical repair. Allergies: INCLUDE IODINE, PENICILLIN, AND SULFAMETHOXAZOLE. Medications: Include meropenem. See MARs for other medications. Review of Systems: A 10-point review was performed. Physical Examination: General: This is a 77-year-old female, lying in bed, not in any acute cardiopulmonary distress. Vital Signs: Temperature 96.8, pulse 77, respirations 18, blood pressure 144/61. HEENT: Unremarkable. Neck: Supple. Lungs: Clear to auscultation. Heart: S1, S2. Regular. Abdomen: Soft, nontender. Bowel sounds positive. Extremities: Trace edema. Laboratory Data: Shows WBC 12,900 down from 20,000, hemoglobin 7, platelets are 409. Chemistry show s sodium 142, potassium 3.9, chloride 117, bicarb 19, BUN 37, creatinine 1.7, glucose is 96. Micro d [place] shows the patient has Proteus mirabilis. Blood cultures negative for 24 hours. ESBL, sensitive to Augmentin, cefadroxil, Unasyn, Timentin, Zosyn, meropenem, and amikacin. Abdominal CT shows mild- to-moderate right-sided hydronephrosis without obstructing calculus, nonobstructing 6 mm calcificatio n seen on the posterior wall of the dilated right renal pelvis. Alvarez catheter in place. Posterior left lateral wall thickening of the rectum suspicious of proctitis. The patient has prominent sigmoi d diverticulosis without diverticulitis. Assessment And Plan: ESBL urinary tract infection with sepsis, improving on meropenem. Leukocytosis also improving. Continue antibiotic and supportive care, total course should be 10 days. Repeat UA , C and S at the end of treatment. We will follow the patient as needed. Thank you Dr. Presley for consult. RADHA/JONY Voice ID: [id number] Report ID: [id number]
[2017-12-13] MEDS: SERTRALINE HCL 50 MG TAB PO SCH (21:29)
[2017-12-13] MEDS: TEMAZEPAM 15 MG CAP PO SCH (21:30)
[2017-12-13] MEDS: GABAPENTIN 100 MG CAP PO SCH (21:30)
[2017-12-13] MEDS: ATORVASTATIN 40 MG TAB PO SCH (21:30)
[2017-12-14] MEDS ORDERED: NA CHLORIDE 0.9% 250 ML ONE ×2 (03:21→08:35)
[2017-12-14] MEDS: SODIUM CHL 0.9% IRR SOLN 2000 ML IRR SCH ×2 (05:15→20:30)
[2017-12-14] MEDS: LEVOTHYROXINE SOD 0.075 MG TAB PO SCH (05:16)
[2017-12-14] MEDS: NA CHLORIDE 0.9% 1,000 ML IV SCH ×2 (07:00→16:59)
[2017-12-14 07:47] LABS: Absolute Monocytes 0.6 K/uL (0.1-1.3); Absolute Neutrophil 8.7 K/uL (1.8-8.0); Basophils % 0.9 % (0-1.3); Eosinophils % 2.7 % (0-4.4); Lymphocytes % 9.1 % (15.3-44.8); MCH 28.5 pg (27.0-35.0); MCV 85.7 fL (80-100); MPV 7.4 fL (7.6-11.3); Monocytes % 5.4 % (3.3-12.3); RBC Red Blood Cell Count 2.45 M/uL (3.86-4.86)
[2017-12-14 08:00] LABS: Albumin 1.8 g/dL (3.2-5.5); Phosphorus 3.4 mg/dL (2.5-4.3); Potassium 3.4 mEq/L (3.6-5.0)
[2017-12-14] MEDS ORDERED: NA CHLORIDE 0.9% 250 ML IV PRN ×2 (08:35→08:53)
[2017-12-14] MEDS: METOPROLOL TAR 50 MG TAB PO SCH (09:00)
[2017-12-14] MEDS: TAMSULOSIN 0.4 MG SR CAP PO SCH (09:00)
[2017-12-14] MEDS: BACLOFEN 10 MG TAB PO SCH (09:00)
[2017-12-14] MEDS: FAMOTIDINE 20 MG TAB PO SCH (09:12)
[2017-12-14] MEDS: LIOTHYRONINE SOD 25 MCG TAB PO SCH (09:12)
[2017-12-14] MEDS: TOPIRAMATE 25 MG TAB PO SCH ×2 (09:12→20:35)
[2017-12-14 09:52] LABS: Hematocrit 24.6 % (36.0-45.0)
[2017-12-14] MEDS: NACHLORIDE 0.45% 1,000 ML with NA BICARB 8.4% 50 MEQ IV SCH ×6 (10:00→20:36)
[2017-12-14] MEDS: Meropenem 500 MG in NA CHLORIDE 0.9% 100 ML IV SCH ×2 (10:15→20:30)
[2017-12-14] MEDS ORDERED: NACL 0.9% IRR SOLN 2,000 ML IRR ONE (11:15)
[2017-12-14 18:12] LABS: Hematocrit 30.4 % (36.0-45.0)
[2017-12-14] MEDS: ATORVASTATIN 40 MG TAB PO SCH (20:30)
[2017-12-14] MEDS: SERTRALINE HCL 50 MG TAB PO SCH (20:30)
[2017-12-14] MEDS: GABAPENTIN 100 MG CAP PO SCH (20:30)
[2017-12-14] MEDS: TEMAZEPAM 15 MG CAP PO SCH (20:30)
--- NOTE | 2017-12-14 20:43 | P.PN ---
Subjective Date of Service: 12/14/17 Chief Complaint: urosepsis, hematuria Subjective: Improving (Dr Damian suggests another week of IV Merrem. Dr. Park states pt can be discharged with iv abx if doing well clinically) Review of Systems General: Weakness Eyes: Unremarkable ENT: Unremarkable Respiratory: Unremarkable Cardiovascular: Unremarkable Gastrointestinal: Unremarkable Genitourinary: Hematuria, Other Musculoskeletal: Unremarkable Integumentary: Unremarkable Neurological: Unremarkable Physical Examination - Vital Signs Temperature: 98.8 F Blood Pressure: 148/76 Pulse: 85 Respirations: 18 Pulse Ox (%): 92 - Physical Exam General: Moderate distress (Nursing personnel called with report of severe pallor, BP 70/40. Up to floor to assess) HEENT: Atraumatic, Normocephalic Neck: Supple Respiratory: Clear to auscultation bilaterally Cardiovascular: No edema Capillary refill: <2 Seconds Gastrointestinal: Normal bowel sounds Musculoskeletal: No clubbing, No swelling Integumentary: Other (severe pallor) Neurological: Other (decreased level of consciousness) Urinary: Alvarez catheter, Other (watermelon colored urine) External genitalia: Deferred Rectal: Deferred Assessment & Plan - Problems (Diagnosis) (1) Hypotension Current Visit: Yes Status: Acute Plan: NS bolus of 250ml q 15 min prn SBP < 90 Qualifiers: Hypotension type: other hypotension type (2) Anemia Onset Date: 08/20/17 Current Visit: No Status: Acute Plan: Transfuse 2nd unit PRBC now Qualifiers: Anemia type: other cause (3) UTI (urinary tract infection) Onset Date: 07/18/17 Current Visit: No Status: Acute Plan: Dr. Damian recommends another week of Merrem IV. With pt's presentation this am I decline transfer to SNF today. Qualifiers: Urinary tract infection type: site unspecified Hematuria presence: without hematuria Qualified Code(s): N39.0 - Urinary tract infection, site not specified
[2017-12-14 22:23] LABS: Magnesium 1.6 mg/dL (1.8-2.5); Potassium 3.3 mEq/L (3.6-5.0)
[2017-12-14 22:26] LABS: Albumin 2.2 g/dL (3.2-5.5); Phosphorus 2.7 mg/dL (2.5-4.3)
--- NOTE | 2017-12-14 22:26 | PN ---
Subjective: The patient has received 2 units of blood due to low H and H of hemoglobin 6.7 and 21. Hematocrit after 1 unit was 8.1 and 24.6. She received 1 more unit and now H and H is pending. Her urine is pretty much clear with minimal irrigation. We will continue that as long as she is able to. Infectious diseases recommended 10 days IV antibiotics for ESBL. She is on meropenem. She has a PICC line that can be done in a [facility] or in outpatient setting. We will have the hospitalist organize that. Her kidney stones are stable and are more likely uric acid stones. Right hydroureter is chronic and non obstructive. We will continue hydration for that. PB/MODL Voice ID: [id number] Report ID: [id number] VILMA
[2017-12-14] MEDS ORDERED: MAGNESIUM SULFATE 1 gm IVPB 1 GM/100 ML BAG IV ONE (22:41)
[2017-12-14] MEDS ORDERED: POTASSIUM 25 MEQ EFFERV TAB PO ONE (22:44)
[2017-12-14] MEDS ORDERED: CALCIUM CARBONATE CHEW 500MG TAB PO PRN (22:44)
--- NOTE | 2017-12-15 01:39 | PN ---
Date of Progress Note: 12/14/2017 Chief Complaint: Acute kidney injury secondary to hypoperfusion and obstructive uropathy as well as acute tubular necrosis complicated by a urinary tract infection and urosepsis. History Of Present Illness: The patient was found to have elevated creatinine up to 2.8 and creatinine has improved gradually to 1.39 in response to IV fluids. The patient was found to have hyperchloremic metabolic acidosis and was started on bicarbonate drip. Review of Systems: The patient of complains of fatigue. Denies PND, orthopnea. Physical Examination: Lungs: Clear to auscultation bilaterally. Heart: S1, S2. Abdomen: Soft, benign. Extremities: Slight edema. Laboratory Data: Sodium 138, potassium 3.4, chloride 113, CO2 20, BUN 30, creatinine 1.39, glucose 104, and calcium 6.19, and phosphorus 3.4. Impression And Plan: 1. Acute on chronic kidney injury, multifactorial etiology. Continue IV fluids. Adjust bicarbonate drip as needed. Reevaluate renal function and modified IV fluids as needed. 2. Hypocalcemia. Plan is to check magnesium level and albumin level to evaluate severity of hypocalcemia as well as to rule out hypomagnesemia, which might be contributory to hypocalcemia. 3. Hypokalemia, multifactorial. Continue replacement. Monitor renal function and electrolytes. Check Magnesium level. 4. Urinary tract infection. Continue antibiotics. The patient was found to have Proteus mirabilis urinary tract infection, continue antibiotics. I spent total 36 min including 26 min to coordinate care plan. CHAMP/JONY Voice ID: [id number] Report ID: [id number] MTDHarmony
[2017-12-15] MEDS: NA CHLORIDE 0.9% 1,000 ML IV SCH ×2 (01:55→13:00)
[2017-12-15] MEDS: LEVOTHYROXINE SOD 0.075 MG TAB PO SCH (05:14)
[2017-12-15 05:40] LABS: Phosphorus 2.7 mg/dL (2.5-4.3); Potassium 4.1 mEq/L (3.6-5.0)
[2017-12-15] MEDS: LIOTHYRONINE SOD 25 MCG TAB PO SCH (09:20)
[2017-12-15] MEDS: FAMOTIDINE 20 MG TAB PO SCH (09:20)
[2017-12-15] MEDS: Meropenem 500 MG in NA CHLORIDE 0.9% 100 ML IV SCH ×2 (09:20→20:52)
[2017-12-15] MEDS: TOPIRAMATE 25 MG TAB PO SCH ×2 (09:20→20:51)
--- NOTE | 2017-12-15 12:06 | P.PN ---
Subjective Date of Service: 12/15/17 Chief Complaint: urosepsis, hematuria Subjective: Improving (Patient is doing much better alert responsive cooperative daughter at bedside she has had recurrent UTIs with IV antibiotics) Review of Systems is unable to be obtained Physical Examination - Vital Signs Temperature: 97.3 F Blood Pressure: 160/72 Pulse: 80 Respirations: 16 Pulse Ox (%): 97 - Physical Exam General: Alert, Cooperative HEENT: Atraumatic Neck: Supple Respiratory: Clear to auscultation bilaterally Cardiovascular: No edema, Normal S1 S2 Assessment & Plan - Problems (Diagnosis) (1) UTI (urinary tract infection) Onset Date: 07/18/17 Current Visit: No Status: Acute Plan: Patient is 77 years of age admitted with a UTI with Proteus multi resistant continue with meropenem he had another weeks of IV therapy in the shelter patient was anemic transfuse 2 units chronic renal insufficiency PICC line requested once home antibiotic treatment setup stable for discharge 80 room-air pulse ox patient is eating and drinking continue to monitor blood pressure Qualifiers: Urinary tract infection type: acute cystitis Hematuria presence: without hematuria Qualified Code(s): N30.00 - Acute cystitis without hematuria
--- NOTE | 2017-12-15 13:13 | PN ---
Subjective: Ms. Crockett is doing well. Objective: Urine is clear. Minimal CBI. Vital signs: 97.0, pulse 77, respirations 16, BP 105/71, sats 100%on nasal cannula 2 L. Assessment: Status post urinary tract infection, ESBL, Proteus. She is to get 6 more days of IV meropenem via the PICC line and she can do this in the longterm. Catheter will be removed before she goes home if she does not need the catheter. DEWEY/JONY Voice ID: [id number] Report ID: [id number] MTDD
[2017-12-15] MEDS: NACHLORIDE 0.45% 1,000 ML with NA BICARB 8.4% 50 MEQ IV SCH ×4 (13:15→23:28)
[2017-12-15] MEDS: TEMAZEPAM 15 MG CAP PO SCH ×2 (20:51→21:00)
[2017-12-15] MEDS: GABAPENTIN 100 MG CAP PO SCH (20:51)
[2017-12-15] MEDS: SERTRALINE HCL 50 MG TAB PO SCH (20:51)
[2017-12-15] MEDS: ATORVASTATIN 40 MG TAB PO SCH (20:51)
[2017-12-15] MEDS: HYDROCODONE/APAP 10/325 TAB PO PRN (21:00)
--- NOTE | 2017-12-15 22:43 | PN ---
Date of Progress Note: 12/15/2017 Chief Complaint: Acute kidney injury. Subjective: Acute kidney injury secondary to renal hypoperfusion and renal obstructive uropathy as well as acute tubular necrosis complicated by urinary tract infection and urosepsis. The patient was found to have elevated creatinine up to 2.8. Creatinine level has been improving gradually in response to IV fluids. The patient was found to have hyperchloremic metabolic acidosis and was started on IV fluids with bicarbonate replacement. Review of Systems: Denies complaints. No fever, no chills, no chest pain, no dyspnea Physical Examination: Lungs: Clear to auscultation bilaterally. Abdomen: Soft, benign, nontender. Extremities: No edema. Laboratory Data: Hemoglobin 9.9, hematocrit 30.4. Sodium 143, chloride 116, CO2 of 22. BUN 25, creatinine 1.46, glucose 93, calcium 7.7, phosphorus 2.7. Impression And Plan: 1. Acute kidney injury in recovery phase. Continue IV fluids. 2. Metabolic acidosis, controlled. Continue to monitor electrolytes. Continue treatment with IV fluids as before. 3. Hypocalcemia. The patient was started on replacement and the patient received magnesium replacement. Magnesium level will be re-evaluated. 4. Hypertension. Monitor blood pressure control. The blood pressure is currently controlled. Continue medication. CHAMP/JONY Voice ID: [id number] Report ID: [id number] VILMA
[2017-12-16] MEDS: SODIUM CHL 0.9% IRR SOLN 2000 ML IRR SCH (01:15)
[2017-12-16] MEDS: LEVOTHYROXINE SOD 0.075 MG TAB PO SCH (05:10)
[2017-12-16 06:14] LABS: Phosphorus 2.8 mg/dL (2.5-4.3); Potassium 4.1 mEq/L (3.6-5.0)
[2017-12-16] MEDS: Meropenem 500 MG in NA CHLORIDE 0.9% 100 ML IV SCH ×2 (09:28→20:41)
[2017-12-16] MEDS: TOPIRAMATE 25 MG TAB PO SCH ×2 (09:28→20:43)
[2017-12-16] MEDS: FAMOTIDINE 20 MG TAB PO SCH (09:28)
[2017-12-16] MEDS: LIOTHYRONINE SOD 25 MCG TAB PO SCH (09:28)
[2017-12-16] MEDS: HYDROCODONE/APAP 10/325 TAB PO PRN (09:47)
--- NOTE | 2017-12-16 10:07 | P.PN ---
Subjective Date of Service: 12/16/17 Chief Complaint: Hypertension urosepsis Subjective: Improving (Patient is doing better wants to go home) Patient is doing better wants to go home waiting meropenem delivery to the half-way blood pressure elevate Review of Systems is unable to be obtained Physical Examination - Vital Signs Temperature: 97.0 F Blood Pressure: 165/95 Pulse: 86 Respirations: 16 Pulse Ox (%): 98 - Physical Exam General: Alert, Cooperative Respiratory: Clear to auscultation bilaterally Cardiovascular: No edema, Regular rate/rhythm Assessment & Plan - Problems (Diagnosis) (1) UTI (urinary tract infection) Onset Date: 07/18/17 Current Visit: No Status: Acute Plan: Patient admitted with urosepsis patient has a PICC line scheduled to receive meropenem for 2 weeks in the half-way Qualifiers: Urinary tract infection type: acute cystitis Hematuria presence: without hematuria Qualified Code(s): N30.00 - Acute cystitis without hematuria (2) KACEY (acute kidney injury) Onset Date: 08/20/17 Current Visit: No Status: Acute Plan: Renal insufficiency improving with IV fluids patient's blood pressure is elevated lisinopril discontinued I have added Norvasc resume metoprolol Discharge Plan: Half-Way Plan to discharge in: 24 Hours
--- NOTE | 2017-12-16 10:37 | PN ---
Subjective: The patient is resting. Urine is clear, crystal clear now, on minimal CBI. Objective: Vital Signs: Temperature 97.9, pulse 77, respirations 16, BP 168/89. She is 93% sat. N o pain. Assessment: Proteus ESBL. She is on meropenem. She has a few more days of meropenem. She has a PI CC line inserted and uses in the [facility]. Alvarez catheter can come out tomorrow morning before s he goes home at 6:00 a.m. DEWEY/JONY Voice ID: [id number] Report ID: [id number]
[2017-12-16] MEDS: NACHLORIDE 0.45% 1,000 ML with NA BICARB 8.4% 50 MEQ IV SCH ×2 (11:08)
[2017-12-16] MEDS: AMLODIPINE 5 MG TAB PO SCH (11:21)
[2017-12-16] MEDS: METOPROLOL XL 50 MG TAB PO SCH (11:22)
[2017-12-16] MEDS: SOD FERRIC GLUC COMPLX/SUCROSE 250 MG in NA CHLORIDE 0.9% 250 ML IV SCH (15:00)
[2017-12-16] MEDS ORDERED: HYDRALAZINE HCL 20 MG/ML VIAL IV PRN (20:20)
[2017-12-16] MEDS: SERTRALINE HCL 50 MG TAB PO SCH (20:41)
[2017-12-16] MEDS: ATORVASTATIN 40 MG TAB PO SCH (20:41)
[2017-12-16] MEDS: TEMAZEPAM 15 MG CAP PO SCH (20:41)
[2017-12-16] MEDS: GABAPENTIN 100 MG CAP PO SCH (20:43)
[2017-12-16] MEDS ORDERED: HYDRALAZINE HCL 20 MG/ML VIAL ONE (20:56)
[2017-12-16 20:59] LABS: Albumin, (SPE) 2.3 g/dL (3.8-4.8); Alpha-1-Globulins 0.5 g/dL (0.2-0.3); Alpha-2-Globulins 0.7 g/dL (0.5-0.9); Gamma Globulins 1.5 g/dL (0.8-1.7); INTERPRETATION REPORT
--- NOTE | 2017-12-16 22:14 | PN ---
Date of Progress Note: 12/16/2017 Chief Complaint: Acute kidney injury, nonoliguric, associated with prerenal azotemia and obstructive uropathy. History Of Present Illness: The patient has history of urinary tract infection complicated by urosepsis and obstructive uropathy. The patient was found to have hyperchloremic metabolic acidosis and is started on IV fluid with sodium carbonate replacement. Review of Systems: Denies complaints. She remains confused. Physical Examination: Lungs: Clear to auscultation bilaterally. Heart: S1, S2. Abdomen: Soft, benign. Extremities: No edema. Laboratory Data: Hemoglobin 9.9, hematocrit 30.4. Sodium 141, potassium 4.1, chloride 112, CO2 22, BUN 21, creatinine 1.2, calcium 7.8, phosphorus 2.8, magnesium 1.9. Impression And Plan: 1. [id number] kidney injury, resolving. The patient will continue IV fluids. Metabolic acidosis is controlled. 2. Hypocalcemia gradually improving, hypomagnesemia improved after replacement. Monitor calcium and phosphorus level. Continue calcium tablet for hypocalcemia control. CHAMP/JONY Voice ID: [id number] Report ID: [id number] VILMA
[2017-12-17 04:43] VITALS: O2SAT 98
[2017-12-17 05:12] LABS: Albumin 2.3 g/dL (3.2-5.5); Phosphorus 2.8 mg/dL (2.5-4.3); Potassium 3.9 mEq/L (3.6-5.0)
[2017-12-17] MEDS: METOPROLOL XL 50 MG TAB PO SCH (06:11)
[2017-12-17] MEDS: LEVOTHYROXINE SOD 0.075 MG TAB PO SCH (06:12)
[2017-12-17] MEDS: ACETAMINOPHEN 500 MG TAB PO PRN (06:15)
[2017-12-17] MEDS: LIOTHYRONINE SOD 25 MCG TAB PO SCH (08:17)
[2017-12-17] MEDS: Meropenem 500 MG in NA CHLORIDE 0.9% 100 ML IV SCH (08:17)
[2017-12-17] MEDS: AMLODIPINE 5 MG TAB PO SCH (08:17)
[2017-12-17] MEDS: FAMOTIDINE 20 MG TAB PO SCH (08:18)
[2017-12-17] MEDS: TOPIRAMATE 25 MG TAB PO SCH (08:18)
--- NOTE | 2017-12-17 11:39 | P.DS ---
Admission Date: 12/11/17 Discharge Date: 12/17/17 Primary Care Provider: Haley BOOGIE Disposition: [facility] Discharge Condition: GOOD Reason for Admission: Hypertension urosepsis Consultations: Urology-Dr. Xavier HIGGINS-Dr. Damian Nephrology-Dr. Saleh/Dr. Simpson Procedures: CT Scan: IMPRESSION: Mild to moderate right-sided hydronephrosis without obstructing calculus. This extends from the kidney to the UVJ similar to prior imaging. Nonobstructing 6 mm calcification is seen layering on the posterior wall of the dilated right renal pelvis. Alvarez catheter is in place with the urinary bladder fully contracted. Hyperdense material within the contracted lumen could be blood or mass. This can be correlated with history and exam findings. Posterior and left lateral wall thickening of the rectum suspicious for proctitis. Patient has prominent sigmoid diverticulosis without diverticulitis. Renal US: IMPRESSION: Moderate right hydronephrosis with caliceal stones suspected. Mild left hydronephrosis. - Problems (1) Chronic renal disease Current Visit: Yes Status: Acute Qualifiers: Chronic kidney disease stage: stage 2 (mild) Qualified Code(s): N18.2 - Chronic kidney disease, stage 2 (mild) (2) History of CVA with residual deficit Current Visit: Yes Status: Chronic (3) Depression Current Visit: Yes Status: Chronic Qualifiers: Depression Type: unspecified Qualified Code(s): F32.9 - Major depressive disorder, single episode, unspecified (4) Neuropathy Current Visit: Yes Status: Chronic (5) KACEY (acute kidney injury) Onset Date: 08/20/17 Current Visit: No Status: Acute (6) Nephrolithiasis Current Visit: No Status: Chronic (7) UTI (urinary tract infection) Onset Date: 07/18/17 Current Visit: No Status: Acute Qualifiers: Urinary tract infection type: acute cystitis Hematuria presence: without hematuria Qualified Code(s): N30.00 - Acute cystitis without hematuria (8) Hyperlipidemia Current Visit: No Status: Chronic Qualifiers: Hyperlipidemia type: unspecified Qualified Code(s): E78.5 - Hyperlipidemia , unspecified (9) Hypertension Onset Date: 07/05/17 Current Visit: No Status: Chronic Qualifiers: Hypertension type: essential hypertension Qualified Code(s): I10 - Essential (primary) hypertension (10) Hypothyroidism Current Visit: No Status: Chronic Qualifiers: Hypothyroidism type: unspecified Qualified Code(s): E03.9 - Hypothyroidism , unspecified (11) Sepsis Current Visit: Yes Status: Acute (12) Anemia Onset Date: 08/20/17 Current Visit: No Status: Acute Qualifiers: Anemia type: iron deficiency Iron deficiency anemia type: unspecified iron deficiency Qualified Code(s): D50.9 - Iron deficiency anemia, unspecified (13) Toxic encephalopathy Onset Date: 07/18/17 Current Visit: No Status: Acute (14) Hydronephrosis Current Visit: Yes Status: Acute (15) Hypocalcemia Current Visit: Yes Status: Acute (16) GERD (gastroesophageal reflux disease) Current Visit: Yes Status: Chronic Qualifiers: Esophagitis presence: esophagitis presence not specified Qualified Code(s) : K21.9 - Gastro-esophageal reflux disease without esophagitis Brief History of Present Illness: 77-year-old female with multiple medical problems including previous CVA with right-sided hemiplegia, hyperlipidemia, hypertension, chronic renal disease presented to emergency room with altered mental status. Patient found to have sepsis with UTI. Patient was admitted for treatment. Hospital Course: During the course of her stay patient was treated for toxic encephalopathy secondary to UTI. CT scan showed right-sided hydronephrosis with nephrolithiasis. Urology, nephrology and infectious disease were consulted. Patient was started on IV antibiotic therapy. Urine culture was positive for Proteus-ESBL. Patient was switched over to meropenem. At discharge patient will continue with meropenem 500 mg IV twice daily for total 14 days. Patient still has 11 days of treatment. PICC line in place. [facility]. Recommendation is to recheck urine culture-catheterization arise after that time to monitor resolution. UTI prevention will need to be enforced. Patient may follow up with urology as an outpatient to further monitor. Patient had acute on chronic renal disease. This was monitor closely. Patient received IV fluids. Patient was seen and monitored by nephrology. She will continue with her medications. Patient has hypertension. Medications have been adjusted due to renal insufficiency. Lisinopril has been discontinued. Metoprolol has been decreased. At discharge she will continue with Norvasc 5 mg daily and metoprolol 50 mg once daily. Recommendation is to maintain blood pressures less 150/80. Further adjustment can be done by her PCP. Patient has hyperlipidemia. Patient will continue with Lipitor 40 mg 1 pill once daily. Patient has a history of CVA with residual right-sided hemiplegia. She will continue with Plavix 75 mg daily. Patient has anemia. Patient required 2 units of blood transfusion. Patient with history of iron deficiency anemia. At discharge she will continue with iron 325 mg 1 pill twice daily. Recommendation is to recheck CBC in 1 week to monitor her progress. Patient has hypothyroidism. She will continue with Synthroid 75 mcg daily and Cytomel 25 mcg daily. Patient has depression. She will continue with Zoloft 50 mg daily. Patient also takes Restoril 15 mg at night. Patient has neuropathy. Patient will continue with gabapentin 100 mg at night. Patient has GERD. She will continue with Pepcid. Recommendation is to recheck CBC and BMP in 1 week to monitor progress. Vital Signs/Physical Exam: Temp Pulse Resp BP Pulse Ox 97 F 74 16 147/74 H 92 12/17/17 08:00 12/17/17 08:17 12/17/17 08:00 12/17/17 08:17 12/17/17 08:00 General: Alert, In no apparent distress, Cooperative HEENT: Atraumatic Neck: Supple Respiratory: Clear to auscultation bilaterally, Normal air movement Cardiovascular: Normal pulses, Regular rate/rhythm Gastrointestinal: Normal bowel sounds, Soft and benign, Non-distended, No masses , No rebound, No guarding Neurological: Abnormal strength (Right-sided hemiplegia) Laboratory Data at Discharge: WBC 10.6 K/uL (4.3-10.9) D 12/14/17 06:45 Hgb 9.9 g/dL (12.0-15.0) L 12/14/17 17:50 Hct 30.4 % (36.0-45.0) L D 12/14/17 17:50 Plt Count 295 K/uL (152-406) D 12/14/17 06:45 PT 14.5 SECONDS (9.5-12.5) H 12/11/17 17:18 INR 1.23 12/11/17 17:18 APTT 42.0 SECONDS (24.3-36.9) H 12/11/17 17:18 Sodium 139 mEq/L (135-145) 12/17/17 04:30 Potassium 3.9 mEq/L (3.6-5.0) 12/17/17 04:30 BUN 21 mg/dL (6-20) H 12/17/17 04:30 Creatinine 1.13 mg/dL (0.44-1.00) H 12/17/17 04:30 Glucose 89 mg/dL (65-120) 12/17/17 04:30 Uric Acid 6.3 mg/dL (2.6-8.0) 12/12/17 09:08 Phosphorus 2.8 mg/dL (2.5-4.3) 12/17/17 04:30 Magnesium 1.9 mg/dL (1.8-2.5) 12/16/17 05:27 Total Bilirubin 0.7 mg/dL (0.3-1.2) 12/11/17 13:50 AST 18 IU/L (10-42) 12/11/17 13:50 ALT 11 IU/L (10-60) 12/11/17 13:50 Alkaline Phosphatase 102 IU/L (42-121) 12/11/17 13:50 Lipase 35 U/L (22-51) 12/11/17 17:18 Home Medications: Hydrocodone 10/APAP 325 [[place] 10/325*] 1 tab PO Q8HP PRN 07/03/17 Levothyroxine Sodium 50 mcg PO [id number] 07/03/17 Liothyronine Sodium [Cytomel] 25 mcg PO DAILY 07/03/17 Sertraline [Zoloft*] 50 mg PO BEDTIME 07/03/17 Topiramate [Topamax*] 25 mg PO BID 07/03/17 Clopidogrel Bisulfate [Plavix*] 75 mg PO DAILY tablet 07/08/17 Famotidine [Pepcid*] 20 mg PO DAILY tab 07/08/17 Simethicone [Mylicon*] 80 mg PO DAILY PRN tab 07/08/17 Atorvastatin Calcium [Lipitor] 40 mg PO BEDTIME #30 tab 07/21/17 Calcium Carbonate/Vitamin D3 [Oyster Shell 500-Vit D3 200 Tb] 1 each PO DAILY Gabapentin [Neurontin*] 300 mg PO BEDTIME 08/16/17 Temazepam [Restoril*] 15 mg PO BEDTIME 08/16/17 Ascorbic Acid [Vitamin C*] 500 mg PO DAILY 12/11/17 Amlodipine [Norvasc*] 5 mg PO DAILY #30 tab 12/17/17 Calcium Carbonate [Tums Regular*] 500 mg PO QID PRN #90 tab 12/17/17 Ferrous Sulfate [Iron] 325 mg PO BID #60 tablet 12/17/17 Metoprolol Succinate [Toprol Xl*] 50 mg PO [id number] #30 tab 12/17/17 New Medications: Amlodipine [Norvasc*] 5 mg PO DAILY #30 tab Calcium Carbonate [Tums Regular*] 500 mg PO QID PRN #90 tab PRN Reason: Gastric Upset/ Indigestion Ferrous Sulfate [Iron] 325 mg PO BID #60 tablet Metoprolol Succinate [Toprol Xl*] 50 mg PO [id number] #30 tab Patient Discharge Instructions: 1. During the course of her stay patient was treated for toxic encephalopathy secondary to UTI. CT scan showed right-sided hydronephrosis with nephrolithiasis. Urology, nephrology and infectious disease were consulted. Urine culture was positive for Proteus-ESBL. At discharge patient will continue with meropenem 500 mg IV twice daily for total 14 days. Patient still has 11 days of treatment. PICC line in place. [facility] her [facility]. Recommendation is to recheck urine culture-catheterization arise after that time to monitor resolution. UTI prevention will need to be enforced. Patient may follow up with urology as an outpatient to further monitor. 2. Patient had acute on chronic renal disease. This was monitor closely. Patient received IV fluids. Patient was seen and monitored by nephrology. She will continue with her medications. Recommendation to recheck BMP in 1 week to monitor progress. 3. Patient has hypertension. Medications have been adjusted due to renal insufficiency. Lisinopril has been discontinued. Metoprolol has been decreased. At discharge she will continue with Norvasc 5 mg daily and metoprolol 50 mg once daily. Recommendation is to maintain blood pressures less 150/80. Further adjustment can be done by her PCP. 4. Patient has hyperlipidemia. Patient will continue with Lipitor 40 mg 1 pill once daily. 5. Patient has a history of CVA with residual right-sided hemiplegia. She will continue with Plavix 75 mg daily. 6. Patient has anemia. Patient required blood transfusion. Patient with history of iron deficiency anemia. At discharge she will continue with iron 325 mg 1 pill twice daily. Recommendation is to recheck CBC in 1 week to monitor her progress. 7. Patient has hypothyroidism. She will continue with Synthroid 75 mcg daily and Cytomel 25 mcg daily. 8. Patient has depression. She will continue with Zoloft 50 mg daily. Patient also takes Restoril 15 mg at night. 9. Patient has neuropathy. Patient will continue with gabapentin 100 mg at night. 10. Patient has GERD. She will continue with Pepcid. 11. Recommendation is to recheck CBC and BMP in 1 week to monitor progress. Diet: AHA Activity: Fall precautions Time spent managing pt's care (in minutes): 55
[2017-12-17 11:49] VITALS: BP 151/81; TEMP 96.7
--- NOTE | 2017-12-18 03:21 | PN ---
Date of Progress Note: 12/17/2017 Chief Complaint: Acute kidney injury, nonoliguric, associated with prerenal azotemia, obstructive uropathy and nonoliguric ATN. History Of Present Illness: The patient has history of complicated urinary tract infection with urosepsis, obstructive uropathy. She was found to have metabolic acidosis, received treatment with IV fluids and bicarbonate replacement was added. Review of Systems: Denies fever, chills. Physical Examination: Lungs: Clear to auscultation bilaterally. Heart: S1-S2. Abdomen: Soft, benign. Extremities: No edema. Impression: 1. Acute kidney injury. Renal function is gradually improving. Monitor electrolytes closely. Creatinine improved to 1.2 and BUN 21. 2. Metabolic acidosis. Bicarbonate is stabilizing . Continue treatment. 3. Hypocalcemia. Treatment started with calcium tablet. Monitor calcium level and monitor magnesium level. The patient had received magnesium replacement for hypomagnesemia. CHAMP/JONY Voice ID: [id number] Report ID: [id number] MTDHarmony
== END 2017-12-17 13:38 | DRG 871 ==
LOC: ER 12:19 → ERHOLD 18:22 → 4TH 19:43
PROVIDERS: ADMIT Family Medicine; ATTEND Family Medicine
PROC: 02HV33Z Insertion of Infusion Device into Superior Vena Cava, Percutaneous Approach (ICD-10-PCS; principal; 2017-12-12)
PROC: 30233N1 Transfusion of Nonautologous Red Blood Cells into Peripheral Vein, Percutaneous Approach (ICD-10-PCS; 2017-12-14)
DX: A41.9 Sepsis, unspecified organism (principal); G92 Toxic encephalopathy; I69.351 Hemiplegia and hemiparesis following cerebral infarction affecting right dominant side; D62 Acute posthemorrhagic anemia; N30.01 Acute cystitis with hematuria; N17.9 Acute kidney failure, unspecified; E87.2 Acidosis; N13.2 Hydronephrosis with renal and ureteral calculous obstruction; Z16.12 Extended spectrum beta lactamase (ESBL) resistance; E78.5 Hyperlipidemia, unspecified; E03.9 Hypothyroidism, unspecified; N18.2 Chronic kidney disease, stage 2 (mild); T44.5X5A Adverse effect of predominantly beta-adrenoreceptor agonists, initial encounter; N14.1 Nephropathy induced by other drugs, medicaments and biological substances; I12.9 Hypertensive chronic kidney disease with stage 1 through stage 4 chronic kidney disease, or unspecified chronic kidney disease; E86.0 Dehydration; B96.4 Proteus (mirabilis) (morganii) as the cause of diseases classified elsewhere; K21.9 Gastro-esophageal reflux disease without esophagitis; G62.9 Polyneuropathy, unspecified; E83.51 Hypocalcemia; Z74.01 Bed confinement status; Z88.0 Allergy status to penicillin; Z88.2 Allergy status to sulfonamides; Z91.041 Radiographic dye allergy status; Z79.02 Long term (current) use of antithrombotics/antiplatelets
CPT/HCPCS: 36415; 51702; 71045; 74176; 76770; 80048; 80053; 80069; 80076; 81003; 81015; 82040; 82553; 82570; 82607; 82728; 82746; 83540; 83605; 83690; 83735; 84100; 84145; 84156; 84165; 84439; 84443; 84466; 84484; 84550; 85014; 85018; 85025; 85044; 85610; 85730; 86850; 86870; 86900; 86901; 86920; 87040; 87077; 87086; 87088; 87186; 93005; 94760; 96361; 96374; 99285; J0360; J1650; J2185; J2916; J3475; J7030; P9016

== ENCOUNTER 2018-01-03 13:15 | Inpatient (IN) | payer OTHER ==
--- NOTE | 2018-01-03 14:13 | RAD REPORT ---
EXAM DESCRIPTION: CT - Abdomen Pelvis Wo Contrast - 01/03/2018 1:45 pm CLINICAL HISTORY: Abdominal pain, iodinated contrast allergy COMPARISON: CT study December 12 TECHNIQUE: Axial [address] imaging of the abdomen and pelvis was performed without IV contrast. No IV contrast was given because of allergy, abnormal renal function, patient refusal or physician re quest. Oral contrast was given. All CT scans are performed using dose optimization technique as appropriate and may include automated exposure control or mA/KV adjustment according to patient size. FINDINGS: Bilateral posterior gutter opacification is favored to be atelectasis rather than pneumoni a. 10 mm nodule in the posterior gutter has not changed. The liver, spleen and pancreas show no suspicious findings on non-contrast imaging. Gallbladder and b iliary tree are also without suspicious finding. Moderate right-sided hydronephrosis and hydroureter noted down to the UVJ. There is no mass or obstru cting calculus identifiable on noncontrast imaging. A 7 mm calcification is layering on the dependent portion of the right renal pelvis. Additional nonobstructing calculi noted in the posterior mid righ t kidney. Nonobstructing punctate calculi noted on the left. Left-sided mild hydronephrosis down to t he UVJ also present. Again, no obstructing mass or stone can be identified on this noncontrast study. No significant adrenal finding. Isodense renal masses and pyelonephritis cannot be excluded in the absence of IV contrast. Urinary bladder wall is slightly thickened and edematous. Cystitis is not exc luded. Alvarez catheter has been removed since the prior study. Sigmoid diverticulosis without diverticulitis. Moderate stool volume in the right side colon. No acut e colon process. Stomach and small bowel show no acute finding. No free air, free fluid or inflammato ry stranding. No hernia, mass or bulky lymphadenopathy. Disc and bony degenerative changes are present. No pathologic bone process. IMPRESSION: Right greater than left hydronephrosis down to the UVJ level without obstructing stone a n without mass identifiable. Bilateral nonobstructing caliceal calculi and right renal pelvic calcifi cation along the dependent portion of the wall. Isodense masses and pyelonephritis are not excluded. Thickening and slight edema of the urinary bladder wall is present. Cystitis is certainly possible. C hronic wall thickening from outlet obstruction would be possible as well. Full assessment is limited is the absence of IV contrast. Posterior gutter opacification is favored to be atelectasis rather than infiltrate. A small 10 mm nod ules seen in the posterior gutter. This is present on prior studies but none of the prior studies are a dedicated CT chest examination. Follow-up in 3-6 months would be recommended.
[2018-01-03] MEDS ORDERED: NA CHLORIDE 0.9% 500 ML ONE (14:39)
--- NOTE | 2018-01-03 14:48 | RAD REPORT ---
EXAM DESCRIPTION: RAD - Chest Single View - 01/03/2018 2:32 pm CLINICAL HISTORY: Dyspnea COMPARISON: December 12 TECHNIQUE: AP portable chest image was obtained 1424 hours . FINDINGS: Lung volumes are very low accentuating heart, vasculature and lung markings. No peripheral mass or consolidation. Mild interstitial edema or infiltrate could be masked in this setting, partic ularly in the left chest. Heart and vasculature are normal. No measurable pleural effusion and no pne umothorax. No acute bone finding. Chronic shoulder joint degenerative changes are present. Left-side PICC line is in place. No acute aortic findings suspected. IMPRESSION: Limited shallow inspiration film without peripheral mass or consolidation. Due to the limitation on the exam, early interstitial edema or infiltrate could be masked.
[2018-01-03 15:14] LABS: Absolute Lymphocytes (CBC) 1.1 K/uL (0.7-4.9); Absolute Monocytes 2.1 K/uL (0.1-1.3); Absolute Neutrophil 16.1 K/uL (1.8-8.0); Basophils % 0.2 % (0-1.3); Hematocrit 28.2 % (36.0-45.0); Lymphocytes % 5.7 % (15.3-44.8); MCH 27.3 pg (27.0-35.0); MCV 85.4 fL (80-100); MPV 7.8 fL (7.6-11.3); Monocytes % 10.4 % (3.3-12.3); RBC Red Blood Cell Count 3.31 M/uL (3.86-4.86)
[2018-01-03 15:27] LABS: ALT/SGPT 12 U/L (12-78); AST/SGOT 12 U/L (15-37); Albumin 1.8 g/dL (3.4-5.0); Alkaline Phosphatase 144 U/L (45-117); BUN Blood Urea Nitrogen 61 mg/dL (7-18); Bicarbonate 21 mmol/L (21-32); Bilirubin Direct < 0.1 mg/dL (0-0.2); Bilirubin Total 0.2 mg/dL (0.2-1.0); Glucose Level 96 mg/dL (74-106); Lipase 73 U/L (73-393); Potassium 4.3 mmol/L (3.5-5.1); Protein, Total 6.1 g/dL (6.4-8.2); Sodium Level 140 mmol/L (136-145)
--- NOTE | 2018-01-03 16:28 | EDPHYS ---
Physician Documentation [facility] Name: Leslie Crockett Age: 77 yrs Sex: Female : 1940 Arrival Date: 01/03/2018 Time: 13:16 Bed 2 Private MD: ED Physician Bishop Green HPI: 01/03 16:23 This 77 yrs old Female presents to ER via EMS with complaints of pain all rn over. 16:23 Sent for evaluation given pain all over body, generalized weakness, 17k WBC at nursing rn home and dehydration, patient reports mid abd pain. . Onset: The symptoms/episode began/occurred at an unknown time. Severity of symptoms: At their worst the symptoms were mild in the emergency department the symptoms are unchanged. The patient has experienced similar episodes in the past. The patient has been recently seen by a physician:. 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 - Social history:: Smoking status: Patient/guardian denies using tobacco. - Family history:: not pertinent. - Ebola Screening: : No symptoms or risks identified at this time. - Hospitalizations: : No recent hospitalization is reported. ROS: 16:23 Constitutional: Negative for fever, chills, and weight loss, Eyes: Negative for injury, rn pain, redness, and discharge, Neck: Negative for injury, pain, and swelling, Cardiovascular: Negative for chest pain, palpitations, and edema, Respiratory: Negative for shortness of breath, cough, wheezing, and pleuritic chest pain, Abdomen/GI: + abd pain MS/Extremity: Negative for injury and deformity, Skin: Negative for injury, rash, and discoloration, Neuro: + generalized weakness Exam: 16:23 Constitutional: Overweight female, no acute distress Head/Face: Normocephalic, rn atraumatic. Eyes: Pupils equal round and reactive to light, extra-ocular motions intact. Lids and lashes normal. Conjunctiva and sclera are non-icteric and not injected. Cornea within normal limits. Periorbital areas with no swelling, redness, or edema. ENT: + dry MM Cardiovascular: tachycardic, regular Respiratory: Lungs have equal breath sounds bilaterally, clear to auscultation and percussion. No rales, rhonchi or wheezes noted. No increased work of breathing, no retractions or nasal flaring. Abdomen/GI: soft, + lower abd tenderness, no rebound, no masses Back: No spinal tenderness. + stage 2 decubitus ulceration, no sign of infection MS/ Extremity: Pulses equal, no cyanosis Neuro: Awake and alert, GCS 15, oriented to person, place. Motor strength 5/5 in bilateral upper ext, unable to move bilateral lower ext (baseline). Sensory grossly intact. Vital Signs: 13:21 BP 115 / 63; Pulse 108; Resp 19; Temp 99.0(O); Pulse Ox 96% on R/A; Pain 10/10; ss 14:05 BP 97 / 52; Pulse 91; Resp 16; Temp 98.6(O); Pulse Ox 97% on R/A; dh3 15:00 BP 103 / 80; Pulse 99; Resp 16; Pulse Ox 99% on R/A; sv 15:49 BP 91 / 46; Pulse 94; Resp 12; Pulse Ox 97% on R/A; sv 17:06 BP 120 / 63; Pulse 97; Resp 12; Temp 97.6; Pulse Ox 100% on R/A; sv MDM: 13:17 Patient medically screened. rn 16:26 Differential Diagnosis altered mental status, sepsis, UTI, dehydration. Data reviewed: rn vital signs, nurses notes, lab test result(s), radiologic studies, CT scan, plain films, and as a result, I will admit patient. Counseling: I had a detailed discussion with the patient and/or guardian regarding: the historical points, exam findings, and any diagnostic results supporting the discharge/admit diagnosis, lab results, radiology results, the need for further work-up and treatment in the hospital. Response to treatment: the patient's symptoms have mildly improved after treatment, and as a result, I will admit patient. Admission orders: after a detailed discussion of the patient's condition and case, the admit orders are written by me. ED course: Admitted to Dr. Vargas for UTI, dehydration, acute kidney injury and hydroureter without obvious cause. . 01/03 13:26 Order name: CBC with Diff rn 01/03 13:26 Order name: Basic Metabolic Panel; Complete Time: 16:06 rn 01/03 13:26 Order name: Procalcitonin; Complete Time: 16:06 rn 01/03 13:26 Order name: Lactate; Complete Time: 16:06 rn 01/03 13:26 Order name: XRAY Chest (1 view); Complete Time: 14:56 rn 01/03 13:26 Order name: Hepatic Function; Complete Time: 16:06 rn 01/03 13:26 Order name: Lipase; Complete Time: 16:06 rn 01/03 13:26 Order name: CT Abd/Pelvis - Without Cont; Complete Time: 14:30 rn 01/03 16:24 Order name: Urine Dipstick--Ancillary (enter results) em1 01/03 17:38 Order name: Manual Differential EDMS 01/03 13:26 Order name: IV Start; Complete Time: 14:56 rn 01/03 13:26 Order name: Urine Dipstick-Ancillary (obtain specimen); Complete Time: 16:21 rn 01/03 13:26 Order name: Labs collected and sent; Complete Time: 16:44 rn 01/03 13:26 Order name: EKG - Nurse/Tech; Complete Time: 14:35 rn 01/03 13:26 Order name: EKG; Complete Time: 13:27 rn Administered Medications: 14:35 Drug: NS 0.9% 500 ml Route: IV; Rate: bolus; Site: PICC; ph 17:09 Follow up: Response: No adverse reaction; IV Status: Completed infusion ph 17:08 Drug: NS 0.9% 1000 ml Route: IV; Rate: 125 ml/hr; Site: PICC; ph 17:09 Follow up: Response: No adverse reaction; IV Status: Infusion continued upon admission ph 17:08 Drug: Meropenem 500 mg Route: IV; Rate: calculated rate; Site: PICC; ph 18:19 Follow up: Response: No adverse reaction; IV Status: Completed infusion ph Disposition: 01/03/18 16:28 Hospitalization ordered by Krishan Vargas for Inpatient Admission. Preliminary diagnosis are Urinary tract infection, site not specified, Dehydration, Hydroureter. - Bed requested for Telemetry/MedSurg (Inpatient). - Status is Inpatient Admission. ph - Condition is Stable. - Problem is new. - Symptoms have improved. UTI on Admission? Yes Signatures: Dispatcher [employer] [facility] Marcy Snow RN RN Bishop Green MD MD rn Smirch, Shelby, RN RN Kimberly Lovett RN RN ph Corrections: (The following items were deleted from the chart) 16:27 13:26 UA MICROSCOPIC+U.LAB.BRZ ordered. [facility] EDIA 16:28 13:26 Urine Culture+BA.LAB.BRZ ordered. [facility] 17:16 16:28 Hospitalization Ordered by Krishan Vargas DO for Inpatient Admission. Preliminary diagnosis is Urinary tract infection, site not specified; Dehydration; Hydroureter. Bed requested for Telemetry/MedSurg (Inpatient). Status is Inpatient Admission. Condition is Stable. Problem is new. Symptoms have improved. UTI on Admission? Yes. rn 18:28 17:16 01/03/2018 16:28 Hospitalization Ordered by Krishan Vargas DO for Inpatient ph Admission. Preliminary diagnosis is Urinary tract infection, site not specified; Dehydration; Hydroureter. Bed requested for Telemetry/MedSurg (Inpatient). Status is Inpatient Admission. Condition is Stable. Problem is new. Symptoms have improved. UTI on Admission? Yes. dw
--- NOTE | 2018-01-03 16:28 | ER ---
Nurse's Notes [facility] Name: Leslie Crockett Age: 77 yrs Sex: Female : 1940 Arrival Date: 01/03/2018 Time: 13:16 Bed 2 Private MD: Diagnosis: Urinary tract infection, site not specified;Dehydration;Hydroureter Presentation: 01/03 13:16 Presenting complaint: EMS states: Pt c/o pain all over, 10/ since this morning. ss Transition of care: patient was not received from another setting of care. Onset of symptoms was January 03, 2018. Risk Assessment: Do you want to hurt yourself or someone else? Patient reports no desire to harm self or others. Initial Sepsis Screen:. Care prior to arrival: Glucose check: 119. 13:16 Method Of Arrival: EMS: [facility] ss 13:16 Acuity: CINTHIA 3 ss 16:39 Initial Sepsis Screen: Does the patient meet any 2 criteria? No. Patient's initial ph sepsis screen is negative. Does the patient have a suspected source of infection? Yes: Dysuria/Frequency/Urgency/UTI. 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 - Social history:: Smoking status: Patient/guardian denies using tobacco. - Family history:: not pertinent. - Ebola Screening: : No symptoms or risks identified at this time. - Hospitalizations: : No recent hospitalization is reported. Screenin:38 Abuse screen: Denies threats or abuse. Denies injuries from another. Nutritional ph screening: No deficits noted. Tuberculosis screening: No symptoms or risk factors identified. Fall Risk No fall in past 12 months (0 pts). Secondary diagnosis (15 points) impaired mobility, IV access (20 points). Ambulatory Aid- None/Bed Rest/Nurse Assist (0 pts). Gait- Impaired (20 pts.). Mental Status- Overestimates/Forgets Limitations (15 pts.). Total Clark Fall Scale indicates High Risk Score (45 or more points). Fall prevention measures have been instituted. Side Rails Up X 2 Placed Close to Nursing Station Frequent Obs/Assessments Occuring Family Present and informed to notify staff if the need to leave the bedside As available patient and family educated on Fall Prevention Program and Strategies. Assessment: 13:30 General: Appears in no apparent distress. uncomfortable, Behavior is anxious, fussy, ph quiet, Denies fever. Pain: Complains of pain in "all over". Neuro: Level of Consciousness is awake, alert, obeys commands, Oriented to person, place. Cardiovascular: Capillary refill < 3 seconds Patient's skin is warm and dry. Respiratory: Airway is patent Respiratory effort is even, unlabored, Respiratory pattern is regular, symmetrical, Breath sounds are clear bilaterally. GI: No signs and/or symptoms were reported involving the gastrointestinal system. : Denies burning with urination. Derm: Skin is fragile, is thin, Skin is pink, warm \\T\\ dry. Decubitus located on sacrum approximately 2.6 cm to 7.5 cm is stage II. Musculoskeletal: Circulation, motion, and sensation intact. Range of motion: limited in lower extremeties. 14:30 Reassessment: Patient appears in no apparent distress at this time. No changes from ph previously documented assessment. Patient and/or family updated on plan of care and expected duration. Pain level reassessed. Daughter at bedside. 15:10 Reassessment: Patient appears in no apparent distress at this time. Patient and/or ph family updated on plan of care and expected duration. Pain level reassessed. Pt awake and alert, oriented to person and place, continues to c/o pain "all over". 16:00 Reassessment: Patient appears in no apparent distress at this time. No changes from ph previously documented assessment. Patient and/or family updated on plan of care and expected duration. Pain level reassessed. 17:46 Reassessment: Patient appears in no apparent distress at this time. Patient and/or ph family updated on plan of care and expected duration. Pain level reassessed. Pt resting quietly, family at bedside, VSS. 18:17 Reassessment: Patient appears in no apparent distress at this time. Patient and/or ph family updated on plan of care and expected duration. Pain level reassessed. Pt awake, oriented to person, place and situation, report called to VIRGIE Rocha, pt taken ti inpatient room via stretcher, accompanied by family. Vital Signs: 13:21 BP 115 / 63; Pulse 108; Resp 19; Temp 99.0(O); Pulse Ox 96% on R/A; Pain 10/10; ss 14:05 BP 97 / 52; Pulse 91; Resp 16; Temp 98.6(O); Pulse Ox 97% on R/A; dh3 15:00 BP 103 / 80; Pulse 99; Resp 16; Pulse Ox 99% on R/A; sv 15:49 BP 91 / 46; Pulse 94; Resp 12; Pulse Ox 97% on R/A; sv 17:06 BP 120 / 63; Pulse 97; Resp 12; Temp 97.6; Pulse Ox 100% on R/A; sv ED Course: 13:16 Patient arrived in ED. ss 13:17 Bishop Green MD is Attending Physician. rn 13:18 Triage completed. ss 13:21 Arm band placed on right wrist. ss 13:31 EKG done, by rehabilitation therapy technician. reviewed by Bishop Green MD. at1 13:[address] vr 13:42 CT completed. Patient moved back from CT. vm2 13:45 CT Abd/Pelvis - Without Cont In Process Unspecified. EDMS 13:45 Patient has correct armband on for positive identification. Bed in low position. Call ph light in reach. Side rails up X2. clinical research monitor on. Pulse ox on. NIBP on. Warm blanket given. 13:49 Kimberly Lovett, RN is Primary Nurse. ph 14:00 Accessed PICC line. using per hospital protocol. Clean \\T\\ dry. Dressing intact. No blood ph return. Flushes easily. 14:32 X-ray completed. Portable x-ray completed in exam room. Patient tolerated procedure jb2 well. 14:33 XRAY Chest (1 view) In Process Unspecified. EDMS 16:15 Alvarez cath inserted, using sterile technique, 16 Fr., by me, balloon inflated, to sv gravity drainage. 16:27 Krishan Vargas DO is Hospitalizing Provider. rn 16:43 No provider procedures requiring assistance completed. Patient admitted, IV remains in ph place. Administered Medications: 14:35 Drug: NS 0.9% 500 ml Route: IV; Rate: bolus; Site: PICC; ph 17:09 Follow up: Response: No adverse reaction; IV Status: Completed infusion ph 17:08 Drug: NS 0.9% 1000 ml Route: IV; Rate: 125 ml/hr; Site: PICC; ph 17:09 Follow up: Response: No adverse reaction; IV Status: Infusion continued upon admission ph 17:08 Drug: Meropenem 500 mg Route: IV; Rate: calculated rate; Site: PICC; ph 18:19 Follow up: Response: No adverse reaction; IV Status: Completed infusion ph Outcome: 16:28 Decision to Hospitalize by Provider. rn 18:18 Admitted to Med/surg accompanied by tech, family with patient, via stretcher, room 222, ph with chart, Report called to Aj GARVIN 18:18 Condition: stable 18:28 Patient left the ED. ph Signatures: Dispatcher [employer] EDPiedad Kennedy RN RN sv Buechter, Jesse jb2 Nieto, Roman, MD MD rn Smirch, Shelby, RN RN ss Davis, Victoria vr gonzales, Amanda, plate shop helper EKG Tat1 Kimberly Lovett RN RN Beverly Carpenter [facility] Shelby Morgan 3 Corrections: (The following items were deleted from the chart) 14:08 14:05 BP 97 / 52; Pulse 91bpm; Resp 16bpm; Pulse Ox 97% RA; dh3 dh3
[2018-01-03] MEDS ORDERED: ONDANSETRON 4 MG/2 ML VIAL IV PRN (16:34)
[2018-01-03] MEDS ORDERED: GABAPENTIN 100 MG CAP PO PRN (16:34)
--- NOTE | 2018-01-03 16:49 | P.HP ---
Certification for Inpatient Patient admitted to: Inpatient With expected LOS: >2 Midnights Patient will require the following post-hospital care: Other (Return to [place]) Practitioner: I am a practitioner with admitting privileges, knowledge of patient current condition, hospital course, and medical plan of care. Services: Services provided to patient in accordance with Admission requirements found in Title 42 Section 412.3 of the Code of Federal Regulations Patient History Date of Service: 01/03/18 Primary Care Provider: Haley BOOGIE-Dr. Garza Reason for admission: Pain all over History of Present Illness: 77-year-old female presented emergency room with pain all over. Patient is at a care home. Patient with multiple medical problems including history of CVA, hypothyroidism, hypertension, chronic renal disease, recurrent UTI, anemia, hyperlipidemia and depression. Patient presented to the emergency room with complaints of pain all over her body. She denied any nausea, vomiting , fever. Patient had recently been hospitalized on December 11 through the for toxic encephalopathy related to UTI found to have ESBL. Urine culture was positive for Proteus at that time. PICC line was placed. Patient was sent to care home to continue treatment. PICC line still in place at this time. Patient also found to have abnormal lab with elevated white count at the care home today. In the ER white count elevated at 20. Hemoglobin 9.0. Percent neutrophils and absolute neutrophils elevated. Sodium 140, potassium 4.3. BUN of 61, creatinine 1.6 with a GFR 31. Pro calcitonin and lactic acid were within normal range. Urinalysis was suspicious for UTI. CT scan showed right greater than left hydronephrosis down to the UVJ level without obstructing stone. Bilateral nonobstructing calculi noted. Thickening and slight edema to the urinary bladder was present. Cystitis was suspected. Atelectasis was also noted. Due to nature the findings the patient was admitted for further evaluation and treatment. When saw the patient ER, the patient appeared stable. She did not appear septic. Patient appropriate and followed commands. PICC line in place.. Allergies iodine Allergy (Verified 07/03/17 15:34) Hives/Rash Penicillins Allergy (Verified 07/03/17 15:34) Hives/Rash sulfamethoxazole [From Bactrim] Adverse Reaction (Verified 07/08/17 12:41) Nausea/Vomiting trimethoprim [From Bactrim] Adverse Reaction (Verified 07/08/17 12:41) Nausea/Vomiting sulfamethoxazole Allergy (Uncoded 12/11/17 20:22) Unknown Home medications list reviewed: Yes Home Medications: Hydrocodone 10/APAP 325 [[place] 10/325*] 1 tab PO Q8HP PRN 07/03/17 Levothyroxine Sodium 50 mcg PO [id number] 07/03/17 Liothyronine Sodium [Cytomel] 25 mcg PO DAILY 07/03/17 Sertraline [Zoloft*] 50 mg PO BEDTIME 07/03/17 Topiramate [Topamax*] 25 mg PO BID 07/03/17 Clopidogrel Bisulfate [Plavix*] 75 mg PO DAILY tablet 07/08/17 Famotidine [Pepcid*] 20 mg PO DAILY tab 07/08/17 Simethicone [Mylicon*] 80 mg PO DAILY PRN tab 07/08/17 Atorvastatin Calcium [Lipitor] 40 mg PO BEDTIME #30 tab 07/21/17 Calcium Carbonate/Vitamin D3 [Oyster Shell 500-Vit D3 200 Tb] 1 each PO DAILY Gabapentin [Neurontin*] 300 mg PO BEDTIME 08/16/17 Temazepam [Restoril*] 15 mg PO BEDTIME 08/16/17 Ascorbic Acid [Vitamin C*] 500 mg PO DAILY 12/11/17 Amlodipine [Norvasc*] 5 mg PO DAILY #30 tab 12/17/17 Calcium Carbonate [Tums Regular*] 500 mg PO QID PRN #90 tab 12/17/17 Ferrous Sulfate [Iron] 325 mg PO BID #60 tablet 12/17/17 Metoprolol Succinate [Toprol Xl*] 50 mg PO [id number] #30 tab 12/17/17 - Past Medical/Surgical History Diabetic: No -: History CVA residual right-sided weakness, bed-bound (07/19) -: Hypothyroidism -: Depression with anxiety -: Iron deficiency anemia -: Chronic renal disease -: Hypertension -: Neuropathy -: GERD -: cholecystectomy -: hysterectomy -: R nephrostomy -: VALORIE knee repair -: right arm repair Psychosocial/ Personal History: Patient lives at care home. - Family History Family History: Reviewed- Non-Contributory - Social History Smoking Status: Never smoker Alcohol use: No CD- Drugs: No Caffeine use: No Place of Residence: [place]Term Review of Systems General: As per HPI Eyes: Unremarkable ENT: Unremarkable Respiratory: Unremarkable Cardiovascular: Unremarkable Gastrointestinal: Unremarkable Genitourinary: As per HPI Musculoskeletal: As per HPI Integumentary: Unremarkable Neurological: Unremarkable Lymphatics: Unremarkable Physical Examination - Physical Exam General: Alert, In no apparent distress, Cooperative HEENT: Atraumatic, Normocephalic, Mucous membr. moist/pink Neck: Supple, No Thyromegaly Respiratory: Clear to auscultation bilaterally, Normal air movement Cardiovascular: Normal pulses, Regular rate/rhythm Gastrointestinal: Normal bowel sounds, Soft and benign, Non-distended, No tenderness, No masses, No rebound, No guarding Musculoskeletal: No erythema, No tenderness, No warmth Neurological: Normal affect, Abnormal strength (Weakness to the lower extremities. Patient bed-bound. [place] bilateral) Urinary: Alvarez catheter Other Physical/Emotional Findings: PICC line in place - Studies Laboratory Data (last 24 hrs) 01/03/18 14:23: Sodium 140, Potassium 4.3, BUN 61 H, Creatinine 1.60 H, Glucose 96, Total Bilirubin 0.2, AST 12 L, ALT 12, Alkaline Phosphatase 144 H, Lipase 73 01/03/18 14:23: WBC 20.0 H, Hgb 9.0 L, Hct 28.2 L, Plt Count 384 Assessment and Plan - Problems (Diagnosis) (1) Chronic renal disease Current Visit: No Status: Acute Plan: Chronic renal disease noted. Acute on chronic likely. Will consult Nephrology to further evaluate. Patient with recurrent UTI. Patient recently treated for Proteus-ESBL. PICC line in place. Will restart meropenem. Urine and blood cultures obtained. Will continue with IV fluids. Will monitor and adjust electrolytes. Will also consult urology to further evaluate. Qualifiers: Chronic kidney disease stage: stage 2 (mild) Qualified Code(s): N18.2 - Chronic kidney disease, stage 2 (mild) (2) History of CVA with residual deficit Current Visit: No Status: Chronic Plan: Will continue with Plavix. Will provide DVT prophylaxis. (3) Depression Current Visit: No Status: Chronic Plan: Continue with her medication Qualifiers: Depression Type: unspecified Qualified Code(s): F32.9 - Major depressive disorder, single episode, unspecified (4) Neuropathy Current Visit: No Status: Chronic Plan: Continue with her medication. (5) Hydronephrosis Current Visit: No Status: Acute Plan: Bilateral hydronephrosis noted. Right greater than left. This is noted down to the UVJ level without obstructing stone. Cystitis suspected. Patient with recent recurrent UTI. Recent culture positive for Proteus. Will restart meropenem. Blood and urine culture obtained. Will consult neurology to further evaluate and assess. Qualifiers: Hydronephrosis type: with ureteropelvic junction obstruction Qualified Code (s): Q62.11 - Congenital occlusion of ureteropelvic junction (6) GERD (gastroesophageal reflux disease) Current Visit: No Status: Chronic Plan: Continue with medication Qualifiers: Esophagitis presence: esophagitis presence not specified Qualified Code(s) : K21.9 - Gastro-esophageal reflux disease without esophagitis (7) UTI (urinary tract infection) Current Visit: No Status: Acute Plan: Recurrent UTI noted. Recent Proteus with ESBL identified. Will restart meropenem. Will obtain urine and blood cultures at this time. Continue as above. Qualifiers: Urinary tract infection type: site unspecified Hematuria presence: without hematuria Qualified Code(s): N39.0 - Urinary tract infection, site not specified (8) Nephrolithiasis Current Visit: No Status: Chronic Plan: Continue as above. Await recommendations from nephrology. (9) Hyperlipidemia Current Visit: No Status: Chronic Plan: Continue with her medication. Qualifiers: Hyperlipidemia type: unspecified Qualified Code(s): E78.5 - Hyperlipidemia , unspecified (10) Hypothyroidism Current Visit: No Status: Chronic Plan: Continue with her medication. Qualifiers: Hypothyroidism type: unspecified Qualified Code(s): E03.9 - Hypothyroidism , unspecified (11) Anemia Onset Date: 08/20/17 Current Visit: No Status: Acute Plan: Continue with iron supplementation. Qualifiers: Anemia type: iron deficiency Iron deficiency anemia type: unspecified iron deficiency Qualified Code(s): D50.9 - Iron deficiency anemia, unspecified (12) Hypertension Onset Date: 07/05/17 Current Visit: No Status: Chronic Plan: Continue with her medication. Qualifiers: Hypertension type: essential hypertension Qualified Code(s): I10 - Essential (primary) hypertension Discharge Plan: Long-Term Plan to discharge in: Greater than 2 days - Advance Directives Does patient have a Living Will: No Does patient have a Durable POA for Healthcare: No - Code Status/Comfort Care Code Status Assessed: No (Will need to verify advanced directives.) Time Spent Managing Pts Care (In Minutes): 55
[2018-01-03] MEDS ORDERED: Meropenem 500 MG/100 ML BAG ONE (16:50)
[2018-01-03] MEDS ORDERED: NA CHLORIDE 0.9% 1,000 ML ONE (16:50)
[2018-01-03] MEDS: NA CHLORIDE 0.9% 1,000 ML IV SCH (17:00)
[2018-01-03 17:37] LABS: Platelet Estimate ADEQ
[2018-01-03 17:38] LABS: Blood Morphology Comment NOT SEEN (NOT SEEN)
--- NOTE | 2018-01-03 18:44 | EKG ---
Test Date: 2018-01-03 Test Time: 13:21:29 Director Of Events: CLARIBEL MEASUREMENT RESULTS: Intervals: Rate: 99 [place]: 162 QRSD: 78 QT: 328 QTc: 420 [place]: P: 43 [place]: 162 QRS: -14 T: 40 INTERPRETIVE STATEMENTS: Normal sinus rhythm Inferior infarct, age undetermined Anterolateral infarct, age undetermined Abnormal ECG Compared to ECG 12/11/2017 16:21:45 No significant changes Electronically Signed On 01-03-18 18:43:40 CDT by Ronn Pedraza
[2018-01-03 20:24] LABS: Urine Blood 3+ (NEG); Urine Glucose NEGATIVE (NEG); Urine Protein 2+ (NEG)
[2018-01-03] MEDS: FERROUS SULFATE 325 MG TAB PO SCH (20:40)
[2018-01-03] MEDS: ENOXAPARIN 30 MG/0.3 ML SQ SCH (20:41)
[2018-01-03] MEDS: ATORVASTATIN 40 MG TAB PO SCH (20:41)
[2018-01-03] MEDS ORDERED: Meropenem 500 MG VIAL IV SCH (21:00)
[2018-01-03] MEDS ORDERED: Meropenem 500 MG in NA CHLORIDE 0.9% 100 ML IV SCH (21:00)
[2018-01-03] MEDS: ACETAMINOPHEN 500 MG TAB PO PRN (21:01)
[2018-01-04 00:36] VITALS: BMI 34.7
[2018-01-04] MEDS: NA CHLORIDE 0.9% 1,000 ML IV SCH ×3 (01:12→19:16)
[2018-01-04] MEDS: ACETAMINOPHEN 500 MG TAB PO PRN (03:02)
[2018-01-04 05:02] LABS: Absolute Lymphocytes (CBC) 1.1 K/uL (0.7-4.9); Absolute Monocytes 1.6 K/uL (0.1-1.3); Absolute Neutrophil 13.2 K/uL (1.8-8.0); Basophils % 0.2 % (0-1.3); Eosinophils % 3.3 % (0-4.4); Hematocrit 26.9 % (36.0-45.0); Lymphocytes % 6.7 % (15.3-44.8); MCV 85.6 fL (80-100); Monocytes % 9.6 % (3.3-12.3); RBC Red Blood Cell Count 3.14 M/uL (3.86-4.86)
[2018-01-04 05:08] LABS: Magnesium 1.8 mg/dL (1.8-2.4); Potassium 4.1 mmol/L (3.5-5.1)
[2018-01-04] MEDS ORDERED: MAGNESIUM SULFATE 1 gm IVPB 1 GM/100 ML BAG IV ONE (05:12)
[2018-01-04 05:35] LABS: Urine Appearance TURBID; Urine Bilirubin NEGATIVE (NEG); Urine Blood 3+ (NEG); Urine Glucose NEGATIVE (NEG); Urine Protein 2+ (NEG); Urine Specific Gravity 1.015 (1.005-1.030); Urine Urobilinogen 0.2 mg/dL (0.2-1.0)
[2018-01-04 05:38] LABS: Urine Color DK YELLOW; Urine Microscopic Reflex ORDER UMIC
[2018-01-04 06:13] LABS: Urine Bacteria >50 /HPF (<20); Urine Culture Reflex Order REFLEXED; Urine Yeast PRESENT (NONE SEEN); Urine Yeast with Hyphae PRESENT
[2018-01-04] MEDS: PANTOPRAZOLE 40MG TABLET PO SCH (06:28)
[2018-01-04] MEDS: LEVOTHYROXINE SOD 0.075 MG TAB PO SCH (06:28)
[2018-01-04] MEDS ORDERED: SIMETHICONE 80 MG TAB PO PRN (07:44)
[2018-01-04] MEDS ORDERED: CALCIUM CARBONATE CHEW 500MG TAB PO PRN (07:44)
[2018-01-04] MEDS ORDERED: GABAPENTIN 300 MG CAP PO PRN (07:47)
--- NOTE | 2018-01-04 07:51 | P.PN ---
Subjective Date of Service: 01/04/18 Primary Care Provider: Haley BOOGIE-Dr. Garza Chief Complaint: Pain all over Subjective: Other (Patient stable this time. No complaints noted.) Physical Examination - Vital Signs Temperature: 97.5 F Blood Pressure: 147/93 Pulse: 110 Respirations: 18 Pulse Ox (%): 93 - Physical Exam General: Alert, In no apparent distress, Cooperative HEENT: Atraumatic Neck: Supple Respiratory: Clear to auscultation bilaterally, Normal air movement Cardiovascular: Normal pulses, Regular rate/rhythm Gastrointestinal: Normal bowel sounds, Soft and benign, Non-distended, No tenderness, No masses, No rebound, No guarding Musculoskeletal: No tenderness, No warmth Neurological: Abnormal strength (Decreased strength to the lower extremities bilateral. Bilateral footdrop. Patient bed-bound.) Other Physical/Emotional Findings: PICC line in place - Studies Laboratory Data (last 24 hrs) 01/03/18 14:23: Sodium 140, Potassium 4.3, BUN 61 H, Creatinine 1.60 H, Glucose 96, Total Bilirubin 0.2, AST 12 L, ALT 12, Alkaline Phosphatase 144 H, Lipase 73 01/03/18 14:23: WBC 20.0 H, Hgb 9.0 L, Hct 28.2 L, Plt Count 384 Medications List Reviewed: Yes Assessment & Plan - Problems (Diagnosis) (1) Chronic renal disease Current Visit: No Status: Acute Plan: Chronic renal disease noted. Slight improvement noted. Nephrology consulted to further assess. Patient with recurrent UTI. Likely Proteus with ESBL. PICC line in place. Will continue with meropenem. Urine and blood cultures obtained. Will continue with IV fluids. Will consult urology to further assess as well. I will turn the service over to Dr. Quan who will help cover. I will go over the plan of care with him. Qualifiers: Chronic kidney disease stage: stage 2 (mild) Qualified Code(s): N18.2 - Chronic kidney disease, stage 2 (mild) (2) History of CVA with residual deficit Current Visit: No Status: Chronic Plan: Will continue with Plavix. Will provide DVT prophylaxis. (3) Depression Current Visit: No Status: Chronic Plan: Continue with her medication Qualifiers: Depression Type: unspecified Qualified Code(s): F32.9 - Major depressive disorder, single episode, unspecified (4) Neuropathy Current Visit: No Status: Chronic Plan: Continue with her medication. (5) Hydronephrosis Current Visit: No Status: Acute Plan: Bilateral hydronephrosis noted. Right greater than left. This is noted down to the UVJ level without obstructing stone. Cystitis suspected. Patient with recent recurrent UTI. Recent culture positive for Proteus-ESBL. Likely still with Proteus-ESBL. Will restart meropenem. Blood and urine culture obtained. Will consult Urology to further evaluate and assess. Qualifiers: Hydronephrosis type: with ureteropelvic junction obstruction Qualified Code (s): Q62.11 - Congenital occlusion of ureteropelvic junction (6) GERD (gastroesophageal reflux disease) Current Visit: No Status: Chronic Plan: Continue with medication Qualifiers: Esophagitis presence: esophagitis presence not specified Qualified Code(s) : K21.9 - Gastro-esophageal reflux disease without esophagitis (7) UTI (urinary tract infection) Current Visit: No Status: Acute Plan: Recurrent UTI noted. Recent Proteus with ESBL identified. Will restart meropenem. Patient likely with recurrent Proteus-ESBL. Will obtain urine and blood cultures at this time. Continue as above. Qualifiers: Urinary tract infection type: site unspecified Hematuria presence: without hematuria Qualified Code(s): N39.0 - Urinary tract infection, site not specified (8) Nephrolithiasis Current Visit: No Status: Chronic Plan: Continue as above. No obstruction identified. Await recommendations from Urology. (9) Hyperlipidemia Current Visit: No Status: Chronic Plan: Continue with her medication. Qualifiers: Hyperlipidemia type: unspecified Qualified Code(s): E78.5 - Hyperlipidemia , unspecified (10) Hypothyroidism Current Visit: No Status: Chronic Plan: Continue with her medication. Qualifiers: Hypothyroidism type: unspecified Qualified Code(s): E03.9 - Hypothyroidism , unspecified (11) Anemia Onset Date: 08/20/17 Current Visit: No Status: Acute Plan: Continue with iron supplementation. Qualifiers: Anemia type: iron deficiency Iron deficiency anemia type: unspecified iron deficiency Qualified Code(s): D50.9 - Iron deficiency anemia, unspecified (12) Hypertension Onset Date: 07/05/17 Current Visit: No Status: Chronic Plan: Continue with her medication. Qualifiers: Hypertension type: essential hypertension Qualified Code(s): I10 - Essential (primary) hypertension Discharge Plan: Retirement Plan to discharge in: Greater than 2 days Time Spent Managing Pts Care (In Minutes): 55
[2018-01-04] MEDS: CLOPIDOGREL 75 MG TABLET PO SCH (08:53)
[2018-01-04] MEDS: TOPIRAMATE 25 MG TAB PO SCH ×2 (08:53→20:11)
[2018-01-04] MEDS: AMLODIPINE 5 MG TAB PO SCH (08:53)
[2018-01-04] MEDS: ENOXAPARIN 30 MG/0.3 ML SQ SCH (08:53)
[2018-01-04] MEDS: SERTRALINE HCL 50 MG TAB PO SCH (08:53)
[2018-01-04] MEDS: METOPROLOL TAR 50 MG TAB PO SCH (08:53)
[2018-01-04] MEDS: FERROUS SULFATE 325 MG TAB PO SCH ×2 (08:53→20:11)
[2018-01-04] MEDS: OLOPATADINE HCL OP SCH (08:54)
[2018-01-04] MEDS: Meropenem 500 MG in NA CHLORIDE 0.9% 100 ML IV SCH ×2 (08:54→20:11)
[2018-01-04] MEDS ORDERED: Meropenem 500 MG VIAL IV SCH (09:00)
--- NOTE | 2018-01-04 13:22 | CON ---
History Of Present Illness: Ms. Crockett is a 77-year-old lady, well known to me. I done ESWL for her kidney stone for either uric acid stones or Topamax stones. We did not get any for analysis. She ca me in. Seemed like she was in retention, developed urinary tract infection. She had bilateral hydro ureteronephrosis down to the UVJ, consistent with a bladder obstruction. She went home without Alvarez catheter last time. Looks like she is going to need a permanent Alvarez catheter versus CIC, but in t he senior care, they will not do a CIC correctly, so she may have to live with a Alvarez catheter from now on. Her white count was elevated up to 20,000, that has defervesced on meropenem, down to 16,00 0 today. Otherwise, I recommend continue IV antibiotics, check cultures, follow growth. She does kwok ve a PICC line. She had an ESBL last time, Proteus which she was treated for, so we will see what th e urine culture grows this time. She was seen, but the bottom line is that she needed bladder draina ge. Allergies: TO IODINE, PENICILLIN, SULFA. Home Medications: Hydrocodone, levothyroxine, Cytomel, sertraline or Zoloft, Topamax, Plavix, Pepcid , Mylicon, Lipitor, calcium and vitamin D3, Neurontin, Restoril, vitamin C, Norvasc, Tums, iron, and Toprol. Past Medical History: CVA, right-sided weakness, bed-bound, hypothyroidism, depression, anxiety, iro n-deficiency anemia, chronic renal disease, hypertension, neuropathy, GERD, cholecystectomy, hysterec amelia, history of right nephrostomy, bilateral knee repair, right arm surgery. Psychosocial History: The patient lives in senior care. Family History: Noncontributory. Social History: Never smoked. No alcohol. No drugs. No caffeine. Resides in a senior care. Review of Systems: A 10-point review of systems unable to be obtained, but per the chart, they are all unremarkable. Respiratory: Unremarkable. Cardiovascular: Unremarkable. gastrointestinal: Unremarkable Genitourinary: as per H and P. Musculoskeletal: Unremarkable. Integumentary: Unremarkable. Neurological: Unremarkable. Lymphatics: Unremarkable. Physical Examination: Vital signs: Afebrile, stable. HEENT: Atraumatic, normocephalic. Neck: Supple. Respiratory: Clear. Cardiovascular: S1, S2. Gastrointestinal: Soft. Musculoskeletal: Nontender. Neurologic: Normal. Urinary: Alvarez catheter is placed, draining. PICC line in place. Lab Studies: Reviewed in chart: Sodium 140, potassium 4.3, BUN 61, creatinine 1.6, and glucose 96 a nd those labs were from 1 day ago. Today's labs; sodium 142, potassium 4.1, chloride 114, carbon patty xide 20, BUN 55, creatinine 1.5. GFR 33. Glucose 88. Calcium 7.9, magnesium 1.8. Hematology, as m entioned white count was 20,000 one day ago, this today is 16.4, H and H is 8.8 and 26.9, and platele t count 413. Urine study showed budding yeast, present bacteria greater than 50. Culture is pending . She may need oral Diflucan also. Assessment: Urinary tract infection, bacteria, and yeast. Due to obstruction, the patient has Alvarez catheter now. White count defervesced on meropenem. I believe the patient should have some Difluca n also for the yeast in these 3 days and continue therapy. She will need a Alvarez catheter from now o n it seems like. Thank you very much. DEWEY/JONY Voice ID: [id number] Report ID: [id number]
[2018-01-04] MEDS: HYDROCODONE/APAP 10/325 TAB PO PRN (13:25)
[2018-01-04] MEDS: ATORVASTATIN 40 MG TAB PO SCH (20:11)
[2018-01-04] MEDS: JUVEN PACKET PO SCH (20:12)
--- NOTE | 2018-01-04 23:04 | CON ---
Date of Consultation: 01/04/2018 Chief Complaint: Urinary tract infection, abnormal kidney function test. History Of Present Illness: The patient has recurrent urinary tract infection. She was admitted to the hospital because of fever, generalized weakness, leukocytosis. She was found to have elevated BUN and creatinine. The patient recently was admitted to the hospital and was found to have urinary tract infection and acute kidney injury. Renal function has improved to baseline, and on admission, on January 01, creatinine level was elevated up to 1.80. Baseline creatinine was ranging from 0.8 to 1.3. The patient has history of recurrent urinary tract infection and CT scan was previously done without contrast to rule out kidney stone and hydronephrosis. The patient was found to have moderate right-sided hydronephrosis and hydroureter as well as left hydronephrosis without obstructing stone and without mass, although there were bilateral nonobstructing caliceal calculi and right renal pelvic calcification in the long and the dependent portion of the wall. The patient is started on antibiotics. Review of Systems: The patient has history of dementia so she cannot provide review of system. Past Medical History: Hypertension, peripheral neuropathy, hypothyroidism, coronary artery disease, chronic kidney disease stage 3, acute kidney failure, GERD, cholecystectomy, right nephrostomy, bilateral knee repair, right arm repair. Family History: No kidney disease in the family. Social History: Denies tobacco, alcohol, or illicit drugs. Physical Examination: General: The patient is awake, alert Eyes: Anicteric sclerae. EOMI. Ears, Nose, Mouth, and Throat: Oral mucosa moist. No pallor. Neck: Supple. No JVD. No bruits. Lungs: Clear to auscultation bilaterally. No rhonchi. No wheezing. Heart: S1, S2. No pericardial friction rub. Abdomen: Soft, benign. No flank tenderness. Extremities: Minimal edema. No clubbing, no cyanosis. Neurological: Moving extremities. Cranial nerves intact. Psychiatric: Alert and oriented x3. Normal affect. Laboratory Data: Sodium 140, potassium 4.3, BUN 61, creatinine 1.60, glucose 96 , total bilirubin 0.2, AST 12, ALT 12. WBC 43898, hemoglobin 9.0, hematocrit 28.2, platelet count is 384,000. Impression And Plan: 1. Acute kidney injury on chronic kidney disease, secondary to ongoing prerenal azotemia, likely there is some element of acute tubular necrosis. The patient has urosepsis. Continue antibiotics. The patient has obstructive uropathy with history of kidney stones. Recently, she was treated for Proteus with ESBL pattern. Meropenem was restarted pending cultures. 2. Acute kidney injury. Continue IV fluids. Monitor electrolytes. 3. History of cerebrovascular accident with residual deficit. 4. Altered mental status. The patient is encephalopathic due to infection. 5. Leukocytosis, due to urosepsis. Pending cultures of the urine and blood. 6. Hypertension. Continue blood pressure medication. CHAMP/JONY Voice ID: [id number] Report ID: [id number] VILMA
[2018-01-05 04:47] LABS: Absolute Lymphocytes (CBC) 1.1 K/uL (0.7-4.9); Absolute Monocytes 1.7 K/uL (0.1-1.3); Basophils % 0.3 % (0-1.3); Eosinophils % 5.1 % (0-4.4); Lymphocytes % 7.7 % (15.3-44.8); MCH 27.9 pg (27.0-35.0); MCV 85.7 fL (80-100); MPV 7.6 fL (7.6-11.3); Monocytes % 11.5 % (3.3-12.3)
[2018-01-05 05:05] LABS: Magnesium 1.9 mg/dL (1.8-2.4); Potassium 3.9 mmol/L (3.5-5.1)
[2018-01-05] MEDS: NA CHLORIDE 0.9% 1,000 ML IV SCH ×3 (05:50→20:39)
[2018-01-05] MEDS: LIOTHYRONINE SOD 25 MCG TAB PO SCH (05:51)
[2018-01-05] MEDS: LEVOTHYROXINE SOD 0.075 MG TAB PO SCH (05:51)
[2018-01-05] MEDS: OLOPATADINE HCL OP SCH (09:00)
[2018-01-05] MEDS: FERROUS SULFATE 325 MG TAB PO SCH ×2 (09:09→20:37)
[2018-01-05] MEDS: Meropenem 500 MG in NA CHLORIDE 0.9% 100 ML IV SCH ×2 (09:09→20:38)
[2018-01-05] MEDS: TOPIRAMATE 25 MG TAB PO SCH ×2 (09:09→20:38)
[2018-01-05] MEDS: AMLODIPINE 5 MG TAB PO SCH (09:09)
[2018-01-05] MEDS: FLUCONAZOLE 100 MG TAB PO SCH (09:10)
[2018-01-05] MEDS: ENOXAPARIN 30 MG/0.3 ML SQ SCH (09:10)
[2018-01-05] MEDS: METOPROLOL TAR 50 MG TAB PO SCH (09:10)
[2018-01-05] MEDS: PANTOPRAZOLE 40MG TABLET PO SCH (09:10)
[2018-01-05] MEDS: SERTRALINE HCL 50 MG TAB PO SCH (09:10)
[2018-01-05] MEDS: CLOPIDOGREL 75 MG TABLET PO SCH (09:10)
[2018-01-05] MEDS: JUVEN PACKET PO SCH ×2 (09:11→20:39)
--- NOTE | 2018-01-05 09:46 | P.PN ---
Subjective Date of Service: 01/05/18 Primary Care Provider: Haley Garza Chief Complaint: Cystitis Subjective: Improving (Improving no new complaints no pain) Review of Systems is unable to be obtained Physical Examination - Vital Signs Temperature: 98.6 F Blood Pressure: 150/50 Pulse: 82 Respirations: 19 Pulse Ox (%): 98 - Physical Exam General: Alert, Cooperative Neck: Supple Respiratory: Clear to auscultation bilaterally Cardiovascular: No edema, Regular rate/rhythm Gastrointestinal: Normal bowel sounds, Soft and benign Other Physical/Emotional Findings: PICC line in place - Studies Medications List Reviewed: Yes Assessment & Plan - Problems (Diagnosis) (1) UTI (urinary tract infection) Onset Date: 01/04/18 Current Visit: No Status: Acute Plan: Patient is 77 years of age admitted with urosepsis secondary to an obstruction : Right greater than left hydronephrosis down to the UVJ level without obstructing stone an without mass identifiable. Bilateral nonobstructing caliceal calculi and right renal pelvic calcification along the dependent portion of the wall. Patient has had any ESBL infection with Proteus renal function is improving patient is currently on meropenem and Diflucan seen by urologist vital signs stable continue with IV flu Qualifiers: Urinary tract infection type: site unspecified Hematuria presence: without hematuria Qualified Code(s): N39.0 - Urinary tract infection, site not specified
[2018-01-05] MEDS: HYDROCODONE/APAP 10/325 TAB PO PRN (11:25)
[2018-01-05 11:36] LABS: Hematocrit 24.7 % (36.0-45.0)
[2018-01-05] MEDS: ATORVASTATIN 40 MG TAB PO SCH (20:38)
[2018-01-05] MEDS: TEMAZEPAM 15 MG CAP PO PRN (22:52)
--- NOTE | 2018-01-06 01:21 | PN ---
Date of Progress Note: 01/05/2018 Chief Complaint: Acute on chronic kidney injury, prerenal azotemia. Renal function has been gradually improving. History Of Present Illness: The patient presented to the hospital, was found to have elevated creatinine up to 1.8. Baseline creatinine level previously was ranging from 0.8-1.3. The patient was found to have moderately severe prerenal azotemia, acute kidney injury with nonoliguric urine output. The patient was found to have moderate right-sided hydronephrosis and hydroureter as well as left hydronephrosis without obstructing stone and mass. There were also bilateral nonobstructing caliceal calculi versus pelvic calcification. The patient denies complaints. She has a history of altered mental status. She developed some confusion. Today, she is more alert. The patient has underlying dementia. Review of Systems: Unobtainable. Physical Examination: Lungs: Clear to auscultation bilaterally. Heart: S1, S2. Abdomen: Soft, benign. Extremities: Minimal edema. Laboratory Data: Hemoglobin 8.1, WBC 14.6, platelet count is 323,000. Sodium 143, potassium 3.9, chloride 115, CO2 19, BUN 49, creatinine 1.2, glucose 90, calcium 7.6, magnesium 1.9. Impression And Plan: 1. Acute kidney injury. Renal function is gradually improving. Continue IV fluids. 2. There is no evidence of rhabdomyolysis. CK level is 14. 3. Hydronephrosis. Urology consultation is obtained. Microbiology was obtained with urine culture. Urine culture pending and blood culture is showing no growth. 4. Hypertension. Continue blood pressure medication. BECK Voice ID: [id number] Report ID: [id number] VILMA
[2018-01-06] MEDS: LEVOTHYROXINE SOD 0.075 MG TAB PO SCH (05:41)
[2018-01-06] MEDS: LIOTHYRONINE SOD 25 MCG TAB PO SCH (05:41)
[2018-01-06 05:49] LABS: Absolute Lymphocytes (CBC) 1.5 K/uL (0.7-4.9); Absolute Monocytes 1.2 K/uL (0.1-1.3); Basophils % 0.6 % (0-1.3); Hematocrit 22.5 % (36.0-45.0); Lymphocytes % 16.5 % (15.3-44.8); MCH 27.6 pg (27.0-35.0); MCV 85.1 fL (80-100); MPV 7.3 fL (7.6-11.3); Monocytes % 13.1 % (3.3-12.3); RBC Red Blood Cell Count 2.64 M/uL (3.86-4.86)
[2018-01-06 06:10] LABS: Magnesium 1.7 mg/dL (1.8-2.4); Potassium 3.4 mmol/L (3.5-5.1)
[2018-01-06] MEDS ORDERED: MAGNESIUM SULFATE 1 gm IVPB 1 GM/100 ML BAG IV ONE (06:18)
--- NOTE | 2018-01-06 06:41 | P.PN ---
Date of Service: 01/06/18 Hgb is 7.3; Ca=6.8(corrected Ca++-using last albumin 1.8- is 8.56); recheck H&H at 0900
[2018-01-06] MEDS: ACETAMINOPHEN 500 MG TAB PO PRN (06:47)
[2018-01-06] MEDS: ENOXAPARIN 30 MG/0.3 ML SQ SCH (08:50)
[2018-01-06] MEDS: CLOPIDOGREL 75 MG TABLET PO SCH (08:51)
[2018-01-06] MEDS: FERROUS SULFATE 325 MG TAB PO SCH ×2 (08:51→20:12)
[2018-01-06] MEDS: METOPROLOL TAR 50 MG TAB PO SCH (08:51)
[2018-01-06] MEDS: SERTRALINE HCL 50 MG TAB PO SCH (08:51)
[2018-01-06] MEDS: TOPIRAMATE 25 MG TAB PO SCH ×2 (08:52→20:12)
[2018-01-06] MEDS: FLUCONAZOLE 100 MG TAB PO SCH (08:52)
[2018-01-06] MEDS: PANTOPRAZOLE 40MG TABLET PO SCH (08:52)
[2018-01-06] MEDS: AMLODIPINE 5 MG TAB PO SCH (08:52)
[2018-01-06] MEDS: Meropenem 500 MG in NA CHLORIDE 0.9% 100 ML IV SCH ×2 (08:53→20:11)
[2018-01-06] MEDS: OLOPATADINE HCL OP SCH (08:53)
[2018-01-06] MEDS: JUVEN PACKET PO SCH ×2 (09:00→20:13)
[2018-01-06 09:11] LABS: Absolute Lymphocytes (CBC) 1.4 K/uL (0.7-4.9); Absolute Monocytes 1.4 K/uL (0.1-1.3); Absolute Neutrophil 6.9 K/uL (1.8-8.0); Basophils % 0.7 % (0-1.3); Eosinophils % 5.7 % (0-4.4); Hematocrit 25.4 % (36.0-45.0); Lymphocytes % 13.7 % (15.3-44.8); MCH 27.8 pg (27.0-35.0); MCV 84.9 fL (80-100); MPV 7.5 fL (7.6-11.3); Monocytes % 13.1 % (3.3-12.3); RBC Red Blood Cell Count 2.99 M/uL (3.86-4.86)
[2018-01-06 09:13] LABS: Potassium 3.6 mmol/L (3.5-5.1)
[2018-01-06 10:11] LABS: Blood Morphology Comment NOT SEEN (NOT SEEN); Platelet Estimate ADEQ; Urine White Blood Cell Casts OK
--- NOTE | 2018-01-06 10:22 | P.PN ---
Subjective Date of Service: 01/06/18 Primary Care Provider: Haley Garza Chief Complaint: Cystitis Subjective: Improving (No new complaints hemoglobin stable) Review of Systems is unable to be obtained Physical Examination - Vital Signs Temperature: 98.8 F Blood Pressure: 130/59 Pulse: 80 Respirations: 18 Pulse Ox (%): 95 - Physical Exam General: Alert, Cooperative Respiratory: Clear to auscultation bilaterally Cardiovascular: No edema, Normal S1 S2 Other Physical/Emotional Findings: PICC line in place - Studies Medications List Reviewed: Yes Assessment & Plan - Problems (Diagnosis) (1) UTI (urinary tract infection) Onset Date: 01/04/18 Current Visit: No Status: Acute Plan: Patient is currently stable hemoglobin is stable vital signs are all stable patient has dysphagia from a left hemisphere stroke Patient is stable to be transferred to custodial with 2 weeks of IV meropenem patient is developing hyperchloremic metabolic acidosis Dc IV normal saline she is eating somewhat drinking satisfactorily renal function is not back to normal Qualifiers: Urinary tract infection type: site unspecified Hematuria presence: without hematuria Qualified Code(s): N39.0 - Urinary tract infection, site not specified
[2018-01-06] MEDS: HYDROCODONE/APAP 10/325 TAB PO PRN (13:32)
[2018-01-06] MEDS: ATORVASTATIN 40 MG TAB PO SCH (20:12)
[2018-01-06] MEDS: TEMAZEPAM 15 MG CAP PO PRN (20:12)
--- NOTE | 2018-01-06 22:39 | PN ---
Date of Progress Note: 01/06/2018 Chief Complaint: Acute on chronic kidney injury secondary to prerenal azotemia. History Of Present Illness: The patient completed IV fluids. Creatinine level was up to 1.8 and wit h IV fluids creatinine level stabilized at baseline and ranging from 0.8 to 1.3. The patient was found to have moderate right-sided hydronephrosis and hydroureter as well as left hyd ronephrosis without obstructing stone or mass. The patient has bilateral nonobstructing caliceal sahara culi versus pelvic calcification. The patient was consulted by urologist. Review of Systems: The patient cannot provide review of systems. She has a history of confusion and dementia. Physical Examination: Lungs: Clear to auscultation bilaterally. Heart: S1, S2. Abdomen: Soft, benign. Extremities: No edema. Laboratory Data: Hemoglobin 8.3, WBC 10.4, platelet count is 389,000. Sodium 144, potassium 3.6, ch loride 118, CO2 19, BUN 45, creatinine 1.0. Impression And Plan: 1.Hypomagnesemia. Magnesium level was 1.7, replacement as needed. Monitor magnesium level. 2.Acute on chronic kidney injury. No evidence of rhabdomyolysis. CK level was 14. The patient has bilateral hydronephrosis. The patient will follow up with urologist. 3.Urinary tract infection. Continue antibiotic. 4.Hypertension. Blood pressure controlled. 5.Acute kidney injury with prerenal azotemia, resolving with IV fluids. Continue to monitor. Avoid nonsteroidal anti-inflammatory medication. CHAMP/JONY Voice ID: [id number] Report ID: [id number]
[2018-01-07] MEDS: ACETAMINOPHEN 500 MG TAB PO PRN (01:17)
[2018-01-07 05:15] LABS: Absolute Lymphocytes (CBC) 1.8 K/uL (0.7-4.9); Absolute Monocytes 1.1 K/uL (0.1-1.3); Absolute Neutrophil 5.9 K/uL (1.8-8.0); Basophils % 0.6 % (0-1.3); Eosinophils % 5.1 % (0-4.4); Hematocrit 23.7 % (36.0-45.0); Lymphocytes % 19.5 % (15.3-44.8); MCH 28.2 pg (27.0-35.0); MCV 84.5 fL (80-100); MPV 7.3 fL (7.6-11.3); Monocytes % 11.5 % (3.3-12.3)
[2018-01-07 05:29] LABS: Potassium 3.5 mmol/L (3.5-5.1)
[2018-01-07] MEDS: LEVOTHYROXINE SOD 0.075 MG TAB PO SCH (05:48)
[2018-01-07] MEDS: LIOTHYRONINE SOD 25 MCG TAB PO SCH (05:48)
--- NOTE | 2018-01-07 08:27 | P.PN ---
Subjective Date of Service: 01/07/18 Primary Care Provider: Haley Garza Chief Complaint: Cystitis Subjective: Improving Physical Examination - Vital Signs Temperature: 97.1 F Blood Pressure: 131/71 Pulse: 89 Respirations: 18 Pulse Ox (%): 97 - Physical Exam General: Alert, In no apparent distress, Cooperative HEENT: Atraumatic Neck: Supple Respiratory: Clear to auscultation bilaterally, Normal air movement Cardiovascular: Normal pulses, Regular rate/rhythm Gastrointestinal: Normal bowel sounds, Soft and benign, Non-distended Musculoskeletal: No tenderness, No warmth Neurological: Normal affect Other Physical/Emotional Findings: PICC line in place - Studies Medications List Reviewed: Yes Assessment & Plan - Problems (Diagnosis) (1) Chronic renal disease Onset Date: 01/04/18 Current Visit: No Status: Acute Plan: Patient with acute on chronic renal disease. Renal function improved. Patient with UTI. Culture positive for Proteus mirabilis-ESBL and Enterococcus faecalis. Patient on meropenem to cover for a ESBL. Vancomycin started to help cover enterococcus. Patient will need IV antibiotic therapy for 7-14 days. Will discuss with urology. From a previous discussion urology recommended the patient be on chronic Alvarez catheter. Will check to see if the patient can return back to the detention with 2 antibiotics for if the patient will require long-term acute care facility placement. Will discuss with social service assistant. Qualifiers: Chronic kidney disease stage: stage 2 (mild) Qualified Code(s): N18.2 - Chronic kidney disease, stage 2 (mild) (2) History of CVA with residual deficit Current Visit: No Status: Chronic Plan: Will continue with Plavix. Will continue with DVT prophylaxis. (3) Depression Onset Date: 01/04/18 Current Visit: No Status: Chronic Plan: Continue with her medication Qualifiers: Depression Type: unspecified Qualified Code(s): F32.9 - Major depressive disorder, single episode, unspecified (4) Neuropathy Onset Date: 01/04/18 Current Visit: No Status: Chronic Plan: Continue with her medication. (5) Hydronephrosis Onset Date: 01/04/18 Current Visit: No Status: Acute Plan: Bilateral hydronephrosis noted. Right greater than left. This is noted down to the UVJ level without obstructing stone. Likely from urinary tract infection. Urology suspects that the patient may have urinary retention. Patient will require chronic Alvarez catheter. Qualifiers: Hydronephrosis type: with ureteropelvic junction obstruction Qualified Code (s): Q62.11 - Congenital occlusion of ureteropelvic junction (6) GERD (gastroesophageal reflux disease) Onset Date: 01/04/18 Current Visit: No Status: Chronic Plan: Continue with medication Qualifiers: Esophagitis presence: esophagitis presence not specified Qualified Code(s) : K21.9 - Gastro-esophageal reflux disease without esophagitis (7) UTI (urinary tract infection) Onset Date: 01/04/18 Current Visit: No Status: Acute Plan: Patient on meropenem for Proteus mirabilis-ESBL. Will add vancomycin for Enterococcus coverage. Will discuss with urology about the length of antibiotic. Patient will require chronic Alvarez catheter as urology suspect urinary retention which is the likely cause of the recurrent infection. Will check to see if the detention will be able to accommodate 2 antibiotics or if the patient will require long-term acute care facility placement. Qualifiers: Urinary tract infection type: site unspecified Hematuria presence: without hematuria Qualified Code(s): N39.0 - Urinary tract infection, site not specified (8) Nephrolithiasis Onset Date: 01/04/18 Current Visit: No Status: Chronic Plan: Continue as above. No obstructive calculi noted. (9) Hyperlipidemia Onset Date: 01/04/18 Current Visit: No Status: Chronic Plan: Continue with her medication. Qualifiers: Hyperlipidemia type: unspecified Qualified Code(s): E78.5 - Hyperlipidemia , unspecified (10) Hypothyroidism Onset Date: 01/04/18 Current Visit: No Status: Chronic Plan: Continue with her medication. Qualifiers: Hypothyroidism type: unspecified Qualified Code(s): E03.9 - Hypothyroidism , unspecified (11) Anemia Onset Date: 08/20/17 Current Visit: No Status: Acute Plan: Continue with iron supplementation. Qualifiers: Anemia type: iron deficiency Iron deficiency anemia type: unspecified iron deficiency Qualified Code(s): D50.9 - Iron deficiency anemia, unspecified (12) Hypertension Onset Date: 07/05/17 Current Visit: No Status: Chronic Plan: Continue with her medication. Qualifiers: Hypertension type: essential hypertension Qualified Code(s): I10 - Essential (primary) hypertension (13) Urinary retention Current Visit: Yes Status: Acute Plan: Patient will need chronic Alvarez catheter. Discharge Plan: Other (long-term verses long-term acute care facility) Plan to discharge in: 24 Hours Time Spent Managing Pts Care (In Minutes): 55
[2018-01-07] MEDS: PANTOPRAZOLE 40MG TABLET PO SCH (08:44)
[2018-01-07] MEDS: FERROUS SULFATE 325 MG TAB PO SCH ×2 (08:44→20:22)
[2018-01-07] MEDS: CLOPIDOGREL 75 MG TABLET PO SCH (08:44)
[2018-01-07] MEDS: SERTRALINE HCL 50 MG TAB PO SCH (08:44)
[2018-01-07] MEDS: AMLODIPINE 5 MG TAB PO SCH (08:44)
[2018-01-07] MEDS: FLUCONAZOLE 100 MG TAB PO SCH (08:45)
[2018-01-07] MEDS: METOPROLOL TAR 50 MG TAB PO SCH (08:45)
[2018-01-07] MEDS: TOPIRAMATE 25 MG TAB PO SCH ×2 (08:45→20:21)
[2018-01-07] MEDS: ENOXAPARIN 30 MG/0.3 ML SQ SCH (08:45)
[2018-01-07] MEDS: OLOPATADINE HCL OP SCH (08:46)
[2018-01-07] MEDS: JUVEN PACKET PO SCH ×2 (09:00→20:23)
[2018-01-07] MEDS: VANCOMYCIN 1.5 GM in NA CHLORIDE 0.9% 500 ML IVPB SCH (10:01)
[2018-01-07] MEDS: Meropenem 500 MG in NA CHLORIDE 0.9% 100 ML IV SCH ×2 (10:01→20:22)
[2018-01-07] MEDS: ATORVASTATIN 40 MG TAB PO SCH (20:22)
[2018-01-07] MEDS: TEMAZEPAM 15 MG CAP PO PRN (21:40)
[2018-01-07 22:38] VITALS: O2SAT 98
[2018-01-07] MEDS: HYDROCODONE/APAP 10/325 TAB PO PRN (23:10)
--- NOTE | 2018-01-08 01:52 | PN ---
Date of Progress Note: 01/07/2018 Chief Complaint: 1. Prerenal azotemia, urinary tract infection. 2. The patient developed acute kidney injury secondary to prerenal azotemia. She responded to IV fluids. Renal function now improved to baseline. 3. Hypomagnesemia, treated, improved. Review of Systems: The patient denies fever or chills. Objective: Lungs: Few crackles at bases. Heart: S1, S2. Abdomen: Soft, benign. Extremities: No edema. Assessment And Plan: 1. Acute on chronic kidney injury secondary to prerenal azotemia. No evidence of rhabdomyolysis. CK level is 14. The patient was found to have bilateral hydronephrosis and is consulted by urologist. 2. Urinary tract infection. Continue antibiotics. 3. Hypertension. Blood pressure currently is controlled. 4. Acute kidney injury, resolving. Continue to monitor renal panel. Continue adequate hydration. Avoid nonsteroidal anti-inflammatory medication. CHAMP/JONY Voice ID: [id number] Report ID: [id number] [id number]
[2018-01-08] MEDS: LIOTHYRONINE SOD 25 MCG TAB PO SCH (05:10)
[2018-01-08] MEDS: LEVOTHYROXINE SOD 0.075 MG TAB PO SCH (05:10)
[2018-01-08 05:42] LABS: Potassium 3.3 mmol/L (3.5-5.1)
[2018-01-08 05:44] LABS: Absolute Lymphocytes (CBC) 2.1 K/uL (0.7-4.9); Absolute Neutrophil 10.2 K/uL (1.8-8.0); Basophils % 0.5 % (0-1.3); Eosinophils % 1.2 % (0-4.4); Hematocrit 25.1 % (36.0-45.0); Lymphocytes % 15.3 % (15.3-44.8); MCH 28.1 pg (27.0-35.0); MCV 84.7 fL (80-100); MPV 7.5 fL (7.6-11.3); Monocytes % 7.7 % (3.3-12.3); RBC Red Blood Cell Count 2.96 M/uL (3.86-4.86)
[2018-01-08 08:27] LABS: Blood Morphology Comment NOT SEEN (NOT SEEN); Platelet Estimate ADEQ
--- NOTE | 2018-01-08 08:49 | P.PN ---
Subjective Date of Service: 01/08/18 Primary Care Provider: Haley Garza Chief Complaint: Cystitis Subjective: Doing well Physical Examination - Vital Signs Temperature: 98.5 F Blood Pressure: 149/76 Pulse: 87 Respirations: 18 Pulse Ox (%): 97 - Physical Exam General: Alert, Cooperative, Demented HEENT: Atraumatic Neck: Supple Respiratory: Clear to auscultation bilaterally, Normal air movement Cardiovascular: Normal pulses, Regular rate/rhythm Gastrointestinal: Normal bowel sounds, Soft and benign, Non-distended, No masses , No rebound, No guarding Musculoskeletal: No erythema, No tenderness, No warmth Integumentary: No cyanosis Neurological: Normal speech, Dementia Urinary: Alvarez catheter Other Physical/Emotional Findings: PICC line in place - Studies Medications List Reviewed: Yes Assessment & Plan - Problems (Diagnosis) (1) Chronic renal disease Onset Date: 01/04/18 Current Visit: No Status: Acute Plan: Patient with acute on chronic renal disease. Renal function improved. Patient with UTI. Culture positive for Proteus mirabilis-ESBL and Enterococcus faecalis. Patient on meropenem to cover for a ESBL. Vancomycin started to help cover enterococcus. Patient will need IV antibiotic therapy for 7 days. Patient also with yeast infection. Will start Diflucan. Case discussed with urology. Patient will need chronic Alvarez catheter to be changed every month. Await approval to go back to the correction to continue antibiotic therapy along with Diflucan. Care discussed with daughter who agrees with plan of care. Qualifiers: Chronic kidney disease stage: stage 2 (mild) Qualified Code(s): N18.2 - Chronic kidney disease, stage 2 (mild) (2) History of CVA with residual deficit Current Visit: No Status: Chronic Plan: Will continue with Plavix. Will continue with DVT prophylaxis. (3) Depression Onset Date: 01/04/18 Current Visit: No Status: Chronic Plan: Continue with her medication Qualifiers: Depression Type: unspecified Qualified Code(s): F32.9 - Major depressive disorder, single episode, unspecified (4) Neuropathy Onset Date: 01/04/18 Current Visit: No Status: Chronic Plan: Continue with her medication. (5) Hydronephrosis Onset Date: 01/04/18 Current Visit: No Status: Acute Plan: Bilateral hydronephrosis noted. Right greater than left. This is noted down to the UVJ level without obstructing stone. Likely from urinary tract infection. Urology suspects that the patient may have urinary retention. Patient will require chronic Alvarez catheter. Qualifiers: Hydronephrosis type: with ureteropelvic junction obstruction Qualified Code (s): Q62.11 - Congenital occlusion of ureteropelvic junction (6) GERD (gastroesophageal reflux disease) Onset Date: 01/04/18 Current Visit: No Status: Chronic Plan: Continue with medication Qualifiers: Esophagitis presence: esophagitis presence not specified Qualified Code(s) : K21.9 - Gastro-esophageal reflux disease without esophagitis (7) UTI (urinary tract infection) Onset Date: 01/04/18 Current Visit: No Status: Acute Plan: Patient on meropenem for Proteus mirabilis-ESBL. Will add vancomycin for Enterococcus coverage. Patient will need 7 day treatment of antibiotics. Patient with PICC line. Patient also with yeast infection. Patient to be started on Diflucan. Await transfer to [facility] to continue treatment. Patient will need chronic Alvarez catheter to be replaced every month. Prevention of UTIs in the future will need to be enforced. Care discussed with daughter and urology Qualifiers: Urinary tract infection type: site unspecified Hematuria presence: without hematuria Qualified Code(s): N39.0 - Urinary tract infection, site not specified (8) Nephrolithiasis Onset Date: 01/04/18 Current Visit: No Status: Chronic Plan: Continue as above. No obstructive calculi noted. (9) Hyperlipidemia Onset Date: 01/04/18 Current Visit: No Status: Chronic Plan: Continue with her medication. Qualifiers: Hyperlipidemia type: unspecified Qualified Code(s): E78.5 - Hyperlipidemia , unspecified (10) Hypothyroidism Onset Date: 01/04/18 Current Visit: No Status: Chronic Plan: Continue with her medication. Qualifiers: Hypothyroidism type: unspecified Qualified Code(s): E03.9 - Hypothyroidism , unspecified (11) Anemia Onset Date: 08/20/17 Current Visit: No Status: Acute Plan: Continue with iron supplementation. Qualifiers: Anemia type: iron deficiency Iron deficiency anemia type: unspecified iron deficiency Qualified Code(s): D50.9 - Iron deficiency anemia, unspecified (12) Hypertension Onset Date: 07/05/17 Current Visit: No Status: Chronic Plan: Continue with her medication. Qualifiers: Hypertension type: essential hypertension Qualified Code(s): I10 - Essential (primary) hypertension (13) Urinary retention Current Visit: Yes Status: Acute Plan: Patient will need chronic Alvarez catheter. Discharge Plan: Halfway Plan to discharge in: 24 Hours Time Spent Managing Pts Care (In Minutes): 55
[2018-01-08] MEDS: JUVEN PACKET PO SCH ×2 (09:00→21:07)
[2018-01-08] MEDS: OLOPATADINE HCL OP SCH (09:00)
[2018-01-08] MEDS: PANTOPRAZOLE 40MG TABLET PO SCH (10:03)
[2018-01-08] MEDS: SERTRALINE HCL 50 MG TAB PO SCH (10:03)
[2018-01-08] MEDS: CLOPIDOGREL 75 MG TABLET PO SCH (10:04)
[2018-01-08] MEDS: TAMSULOSIN 0.4 MG SR CAP PO SCH (10:04)
[2018-01-08] MEDS: FERROUS SULFATE 325 MG TAB PO SCH ×2 (10:04→21:04)
[2018-01-08] MEDS: TOPIRAMATE 25 MG TAB PO SCH ×2 (10:04→21:05)
[2018-01-08] MEDS: FLUCONAZOLE 100 MG TAB PO SCH (10:04)
[2018-01-08] MEDS: AMLODIPINE 5 MG TAB PO SCH (10:04)
[2018-01-08] MEDS: METOPROLOL TAR 50 MG TAB PO SCH (10:04)
[2018-01-08] MEDS: ENOXAPARIN 30 MG/0.3 ML SQ SCH (10:04)
[2018-01-08] MEDS: Meropenem 500 MG in NA CHLORIDE 0.9% 100 ML IV SCH ×2 (10:05→21:05)
--- NOTE | 2018-01-08 10:19 | P.DS ---
Admission Date: 01/03/18 Discharge Date: 01/08/18 Primary Care Provider: Haley [place]-Dr. Garza Disposition: TRANSFER TO ASSISTED Discharge Condition: GOOD Reason for Admission: Cystitis Consultations: Urology-Dr. Park Nephrology-Dr. Saleh/Dr. Simpson Procedures: CT scan: COMPARISON: CT study December 12 FINDINGS: Bilateral posterior gutter opacification is favored to be atelectasis rather than pneumonia. 10 mm nodule in the posterior gutter has not changed. The liver, spleen and pancreas show no suspicious findings on non-contrast imaging. Gallbladder and biliary tree are also without suspicious finding. Moderate right-sided hydronephrosis and hydroureter noted down to the UVJ. There is no mass or obstructing calculus identifiable on noncontrast imaging. A 7 mm calcification is layering on the dependent portion of the right renal pelvis. Additional nonobstructing calculi noted in the posterior mid right kidney. Nonobstructing punctate calculi noted on the left. Left-sided mild hydronephrosis down to the UVJ also present. Again, no obstructing mass or stone can be identified on this noncontrast study. No significant adrenal finding. Isodense renal masses and pyelonephritis cannot be excluded in the absence of IV contrast. Urinary bladder wall is slightly thickened and edematous. Cystitis is not excluded. Alvarez catheter has been removed since the prior study. Sigmoid diverticulosis without diverticulitis. Moderate stool volume in the right side colon. No acute colon process. Stomach and small bowel show no acute finding. No free air, free fluid or inflammatory stranding. No hernia, mass or bulky lymphadenopathy. Disc and bony degenerative changes are present. No pathologic bone process. IMPRESSION: Right greater than left hydronephrosis down to the UVJ level without obstructing stone an without mass identifiable. Bilateral nonobstructing caliceal calculi and right renal pelvic calcification along the dependent portion of the wall. Isodense masses and pyelonephritis are not excluded. Thickening and slight edema of the urinary bladder wall is present. Cystitis is certainly possible. Chronic wall thickening from outlet obstruction would be possible as well. Full assessment is limited is the absence of IV contrast. Posterior gutter opacification is favored to be atelectasis rather than infiltrate. A small 10 mm nodules seen in the posterior gutter. This is present on prior studies but none of the prior studies are a dedicated CT chest examination. Follow-up in 3-6 months would be recommended. - Problems (1) Chronic renal disease Onset Date: 01/04/18 Current Visit: No Status: Acute Qualifiers: Chronic kidney disease stage: stage 2 (mild) Qualified Code(s): N18.2 - Chronic kidney disease, stage 2 (mild) (2) History of CVA with residual deficit Current Visit: No Status: Chronic (3) Depression Onset Date: 01/04/18 Current Visit: No Status: Chronic Qualifiers: Depression Type: unspecified Qualified Code(s): F32.9 - Major depressive disorder, single episode, unspecified (4) Neuropathy Onset Date: 01/04/18 Current Visit: No Status: Chronic (5) Hydronephrosis Onset Date: 01/04/18 Current Visit: No Status: Acute Qualifiers: Hydronephrosis type: with ureteropelvic junction obstruction Qualified Code (s): Q62.11 - Congenital occlusion of ureteropelvic junction (6) GERD (gastroesophageal reflux disease) Onset Date: 01/04/18 Current Visit: No Status: Chronic Qualifiers: Esophagitis presence: esophagitis presence not specified Qualified Code(s) : K21.9 - Gastro-esophageal reflux disease without esophagitis (7) UTI (urinary tract infection) Onset Date: 01/04/18 Current Visit: No Status: Acute Qualifiers: Urinary tract infection type: site unspecified Hematuria presence: without hematuria Qualified Code(s): N39.0 - Urinary tract infection, site not specified (8) Nephrolithiasis Onset Date: 01/04/18 Current Visit: No Status: Chronic (9) Hyperlipidemia Onset Date: 01/04/18 Current Visit: No Status: Chronic Qualifiers: Hyperlipidemia type: unspecified Qualified Code(s): E78.5 - Hyperlipidemia , unspecified (10) Hypothyroidism Onset Date: 01/04/18 Current Visit: No Status: Chronic Qualifiers: Hypothyroidism type: unspecified Qualified Code(s): E03.9 - Hypothyroidism , unspecified (11) Anemia Onset Date: 08/20/17 Current Visit: No Status: Acute Qualifiers: Anemia type: iron deficiency Iron deficiency anemia type: unspecified iron deficiency Qualified Code(s): D50.9 - Iron deficiency anemia, unspecified (12) Hypertension Onset Date: 07/05/17 Current Visit: No Status: Chronic Qualifiers: Hypertension type: essential hypertension Qualified Code(s): I10 - Essential (primary) hypertension (13) Urinary retention Current Visit: Yes Status: Acute (14) Pulmonary nodules Current Visit: Yes Status: Chronic Brief History of Present Illness: 77-year-old female presented emergency room with pain all over. Patient is at a [facility]. Patient with multiple medical problems including history of CVA, hypothyroidism, hypertension, chronic renal disease, recurrent UTI, anemia, hyperlipidemia and depression. Patient presented to the emergency room with complaints of pain all over her body. She denied any nausea, vomiting , fever. Patient had recently been hospitalized on December 11 through the for toxic encephalopathy related to UTI found to have ESBL. Urine culture was positive for Proteus at that time. PICC line was placed. Patient was sent to [facility] to continue treatment. PICC line still in place at this time. Patient also found to have abnormal lab with elevated white count at the [facility] today. In the ER white count elevated at 20. Hemoglobin 9.0. Percent neutrophils and absolute neutrophils elevated. Sodium 140, potassium 4.3. BUN of 61, creatinine 1.6 with a GFR 31. Pro calcitonin and lactic acid were within normal range. Urinalysis was suspicious for UTI. CT scan showed right greater than left hydronephrosis down to the UVJ level without obstructing stone. Bilateral nonobstructing calculi noted. Thickening and slight edema to the urinary bladder was present. Cystitis was suspected. Atelectasis was also noted. Due to nature the findings the patient was admitted for further evaluation and treatment. When saw the patient ER, the patient appeared stable. She did not appear septic. Patient appropriate and followed commands. PICC line in place.. Hospital Course: During the course her stay the patient was evaluated further. Patient found to have recurrent UTI likely with underlying urinary retention. Patient evaluate nephrology and urology. No urological intervention was needed. Urine culture positive for Proteus mirabilis-ESBL and Enterococcus. Patient required IV antibiotic therapy including meropenem and vancomycin. Repeat urine culture showed yeast. Patient also started on Diflucan. Case discussed in detail with urology. Due to hydronephrosis an urinary retention the patient will continue with chronic Alvarez catheter to be changed every month. At discharge patient will continue with meropenem 500 mg IV twice daily and vancomycin 1.5 g every 36 hr for total of 7 days. Pharmacy will need to monitor and adjust medication. Patient will also continue with Diflucan 100 mg daily for 7 days. Nephrology has added Flomax 0.4 mg daily. Recommendation to recheck urine culture in 1 week monitor resolution. If negative antibiotics and PICC line can be removed. Prevention of recurrent UTIs will need to be enforced. Recommendation to change her diaper frequently. This will need to be enforced at the [facility]. Patient with history of CVA. Patient bed-bound. Patient will continue with her medication-Plavix 75 mg daily. Patient also takes Topamax 25 mg 1 pill twice daily. Patient presented with acute on chronic renal disease. Renal function stable this time. Recommendation to recheck lab-BMP in 1 week to monitor progress. Patient may follow up with nephrology as an outpatient. Patient has hyperlipidemia. Patient may continue with her medication-Lipitor 40 mg daily. Patient has hypertension. Patient may continue with her medication-Norvasc 5 mg daily and metoprolol 50 mg daily. Recommendation is to maintain blood pressures less 150/80. Further adjustment can be done by her PCP. Patient has hypothyroidism. Patient continue with her medication-Levoxyl 50 mcg daily and Cytomel 25 mcg daily. Patient has iron deficiency anemia. Patient will continue with iron supplementation-iron 325 mg 1 pill twice daily. Recommendation to recheck lab- CBC in 1-2 weeks to monitor progress. Patient has GERD. Patient continue with Pepcid 20 mg daily. Patient has depression. Patient may continue with Zoloft 50 mg daily and Restoril 15 mg at night as needed. Patient has chronic pain. Patient continue with gabapentin 300 mg at night and [place] 10/325 mg 1 pill every 8 hr as for pain. Patient has pulmonary nodules. Patient may have repeat CT scan in 3-6 months to monitor stability. Advanced directives readdressed with daughter. Patient is DNR. Vital Signs/Physical Exam: Temp Pulse Resp BP Pulse Ox 98.5 F 87 18 149/76 H 97 01/08/18 08:49 01/08/18 08:49 01/08/18 08:49 01/08/18 08:49 01/08/18 08:49 General: Alert, In no apparent distress, Cooperative HEENT: Atraumatic Neck: Supple Respiratory: Clear to auscultation bilaterally, Normal air movement Cardiovascular: Normal pulses, Regular rate/rhythm Gastrointestinal: Normal bowel sounds, Soft and benign, Non-distended, No tenderness, No masses, No rebound, No guarding Musculoskeletal: No tenderness, No warmth Neurological: Other (Patient bed-bound) Urinary: Alvarez catheter Other Physical/Emotional Findings: PICC line in place Laboratory Data at Discharge: WBC 13.5 K/uL (4.3-10.9) H D 01/08/18 04:20 Hgb 8.3 g/dL (12.0-15.0) L 01/08/18 04:20 Hct 25.1 % (36.0-45.0) L 01/08/18 04:20 Plt Count 393 K/uL (152-406) 01/08/18 04:20 Sodium 145 mmol/L (136-145) 01/08/18 04:20 Potassium 3.3 mmol/L (3.5-5.1) L 01/08/18 04:20 BUN 30 mg/dL (7-18) H 01/08/18 04:20 Creatinine 1.00 mg/dL (0.55-1.3) 01/08/18 04:20 Glucose 76 mg/dL (74-106) 01/08/18 04:20 Magnesium 2.0 mg/dL (1.8-2.4) 01/08/18 04:20 Total Bilirubin 0.2 mg/dL (0.2-1.0) 01/03/18 14:23 AST 12 U/L (15-37) L 01/03/18 14:23 ALT 12 U/L (12-78) 01/03/18 14:23 Alkaline Phosphatase 144 U/L (45-117) H 01/03/18 14:23 Troponin I < 0.02 ng/mL (0.0-0.045) 01/03/18 21:00 Lipase 73 U/L (73-393) 01/03/18 14:23 Home Medications: Hydrocodone 10/APAP 325 [[place] 10/325*] 1 tab PO Q8HP PRN 07/03/17 Levothyroxine Sodium 50 mcg PO [id number] 07/03/17 Liothyronine Sodium [Cytomel] 25 mcg PO DAILY 07/03/17 Sertraline [Zoloft*] 50 mg PO BEDTIME 07/03/17 Topiramate [Topamax*] 25 mg PO BID 07/03/17 Clopidogrel Bisulfate [Plavix*] 75 mg PO DAILY tablet 07/08/17 Famotidine [Pepcid*] 20 mg PO DAILY tab 07/08/17 Atorvastatin Calcium [Lipitor] 40 mg PO BEDTIME #30 tab 07/21/17 Calcium Carbonate/Vitamin D3 [Oyster Shell 500-Vit D3 200 Tb] 1 each PO DAILY Gabapentin [Neurontin*] 300 mg PO BEDTIME 08/16/17 Temazepam [Restoril*] 15 mg PO BEDTIME 08/16/17 Ascorbic Acid [Vitamin C*] 500 mg PO DAILY 12/11/17 Amlodipine [Norvasc*] 5 mg PO DAILY #30 tab 12/17/17 Calcium Carbonate [Tums Regular*] 500 mg PO QID PRN #90 tab 12/17/17 Ferrous Sulfate [Iron] 325 mg PO BID #60 tablet 12/17/17 Metoprolol Succinate [Toprol Xl*] 50 mg PO [id number] #30 tab 12/17/17 Olopatadine HCl [Pataday] 1 drop OP DAILY 01/03/18 Simethicone [Mylicon*] 80 mg PO Q8HP PRN 01/03/18 Fluconazole [Diflucan] 100 mg PO DAILY #7 tablet 01/08/18 Tamsulosin [Flomax*] 0.4 mg PO DAILY #30 cap 01/08/18 New Medications: Fluconazole [Diflucan] 100 mg PO DAILY #7 tablet Tamsulosin [Flomax*] 0.4 mg PO DAILY #30 cap Patient Discharge Instructions: 1. Patient will return to the [facility] to continue treatment. 2. Patient was treated for recurrent UTI with hydronephrosis likely from urinary retention. Patient seen and evaluated by nephrology and urology. Patient did well during the course of her stay. Initial Urine culture positive for Proteus mirabilis-ESBL and Enterococcus. Patient required IV antibiotic therapy including meropenem and vancomycin. Repeat urine culture showed yeast. Patient also started on Diflucan. Case discussed in detail with urology and nephrology. Due to recurrent UTI, hydronephrosis and urinary retention the patient will continue with chronic Alvarez catheter to be changed every month. At discharge patient will continue with meropenem 500 mg IV twice daily and vancomycin IV 1.5 g every 36 hr for total of 7 days. Pharmacy to monitor and adjust medication. Patient will also continue with Diflucan 100 mg daily for 7 days. Nephrology has added Flomax 0.4 mg daily. Recommendation to recheck catheterized urine culture in 1 week monitor resolution. If negative antibiotics and PICC line can be removed. Prevention of recurrent UTIs will need to be enforced. Recommendation to change her diaper frequently. This will need to be enforced at the [facility]. 3. Patient with history of CVA. Patient bed-bound. Patient will continue with her medication-Plavix 75 mg daily. 4. Patient presented with acute on chronic renal disease. Renal function stable this time. Recommendation to recheck lab-BMP in 1 week to monitor progress. Patient may follow up with nephrology as an outpatient. 5. Patient has hyperlipidemia. Patient may continue with her medication-Lipitor 40 mg daily. 6. Patient has hypertension. Patient may continue with her medication-Norvasc 5 mg daily and metoprolol 50 mg daily. Recommendation is to maintain blood pressures less 150/ 80. Further adjustment can be done by her PCP. 7. Patient has hypothyroidism. Patient continue with her medication-Levoxyl 50 mcg daily and Cytomel 25 mcg daily. 8. Patient has iron deficiency anemia. Patient will continue with iron supplementation-iron 325 mg 1 pill twice daily. Recommendation to recheck lab-CBC in 1-2 weeks to monitor progress. 9. Patient has chronic pain. Patient may continue with gabapentin 300 mg at night, [place] 10 mg every 8 hr as needed for pain. 10. Patient has depression. Patient continue with Zoloft 50 mg daily and Restoril 15 mg at night as needed. 11. Patient has GERD. Patient continue with Pepcid 20 mg daily. 12. Patient has pulmonary nodules. Patient may have repeat CT scan in 3-6 months to monitor stability. 13. Advanced directives readdressed with daughter. Patient is DNR. Diet: Renal Activity: Fall precautions Time spent managing pt's care (in minutes): 55
[2018-01-08] MEDS: ATORVASTATIN 40 MG TAB PO SCH (21:04)
[2018-01-08] MEDS: TEMAZEPAM 15 MG CAP PO PRN (21:05)
--- NOTE | 2018-01-08 21:29 | PN ---
Date of Progress Note: 01/08/2018 Subjective: The patient is doing relatively well today. She is also waiting to coordinate her IV antibiotics to go home, meropenem and vancomycin. Assessment: Urine culture did show 3+ yeast. s/p 3 days of diflucan. Her final culture grew Proteus mirabilis and Enterococcus faecalis. We treated the Proteus with meropenem and Enterococcus faecalis to be treated with vancomycin. She has a PICC line that can be used for this. She currently has a Alvarez catheter draining her bladder now, based on the fact that she came in with urinary retention and hydronephrosis. PB/MODL Voice ID: [id number] Report ID: [id number] VILMA
[2018-01-08] MEDS: VANCOMYCIN 1.5 GM in NA CHLORIDE 0.9% 500 ML IVPB SCH (22:47)
--- NOTE | 2018-01-09 02:36 | PN ---
Date of Progress Note: 01/08/2018 Subjective: The patient is slightly better. No nausea. No vomiting. Physical Examination: Vital Signs: When I saw the patient, the patient was lying in bed. Blood pressure of 177/74, pulse of 77, afebrile. Chest: Clear to auscultation. Heart: S1, S2. Regular. Abdomen: Soft, nontender. Extremities: No edema. Laboratory Data: WBC 13.5, H and H 8.3/25.1, platelets 393. Sodium 145, potassium 3.3, bicarb 19. BUN 30, creatinine 1. Calcium 7.74, magnesium of 2. Current Medications: Current medications the patient on include, 1.Meropenem. 2.Vancomycin. 3.Fluconazole. 4.Flomax. 5.Ferrous sulfate. 6.Atorvastatin. 7.Metoprolol. 8.Gabapentin. 9.Pantoprazole. 10.Simethicone. 11.Levothyroxine. Assessment And Plan: 1.Acute kidney injury, resolved. 2.Urinary tract infection, multi-organism including funguria. I am going to continue antibiotic. I t is complicated urinary tract infection given the obstruction. The patient is going to need to hav e repeated urinalysis and urine culture after finishing the treatment. If it did not clear up at jane t time, the patient is going to need some stenting or percutaneous nephrostomy. We will follow up. 3.Funguria and urinary tract infection as above. 4.Hypertension, controlled, optimal. We will continue to monitor. JUDY Voice ID: [id number] Report ID: [id number]
[2018-01-09] MEDS: LIOTHYRONINE SOD 25 MCG TAB PO SCH (05:38)
[2018-01-09] MEDS: LEVOTHYROXINE SOD 0.075 MG TAB PO SCH (05:38)
[2018-01-09] MEDS: Meropenem 500 MG in NA CHLORIDE 0.9% 100 ML IV SCH (08:27)
[2018-01-09] MEDS: CLOPIDOGREL 75 MG TABLET PO SCH (08:28)
[2018-01-09] MEDS: METOPROLOL TAR 50 MG TAB PO SCH (08:28)
[2018-01-09] MEDS: ENOXAPARIN 30 MG/0.3 ML SQ SCH (08:28)
[2018-01-09] MEDS: TAMSULOSIN 0.4 MG SR CAP PO SCH (08:28)
[2018-01-09] MEDS: SERTRALINE HCL 50 MG TAB PO SCH (08:28)
[2018-01-09] MEDS: FLUCONAZOLE 100 MG TAB PO SCH (08:29)
[2018-01-09] MEDS: AMLODIPINE 5 MG TAB PO SCH (08:29)
[2018-01-09] MEDS: OLOPATADINE HCL OP SCH (08:29)
[2018-01-09] MEDS: TOPIRAMATE 25 MG TAB PO SCH (08:29)
[2018-01-09] MEDS: PANTOPRAZOLE 40MG TABLET PO SCH (08:30)
[2018-01-09] MEDS: JUVEN PACKET PO SCH (08:30)
[2018-01-09] MEDS: FERROUS SULFATE 325 MG TAB PO SCH (08:30)
[2018-01-09 08:32] VITALS: BP 144/63
[2018-01-09 08:48] VITALS: TEMP 97.8
--- NOTE | 2018-01-09 16:48 | PN ---
Date of Progress Note: 01/09/2018 Subjective: The patient doing better. No nausea. No vomiting. Still slightly slow, confused occas ionally. Objective: Vital Signs: Blood pressure 144/63, pulse of 77, afebrile. Urine output of 1600. Chest: Clear to auscultation. Heart: S1, S2. Regular. Systolic murmur. Abdomen: Soft, nontender. Extremities: No edema bilateral. Laboratory Data: WBC 13.5, H and H 8.3/25.1, platelets 393. Sodium 145, potassium 3.3, bicarb 19. B UN 30, creatinine 1, calcium 7.7, magnesium of 2. Current Medications: The patient on include: 1.Amlodipine. 2.Calcium carbonate. 3.Fluconazole. 4.Gabapentin. 5.Levothyroxine. 6.Meropenem. 7.Pantoprazole. 8.Flomax. Assessment And Plan: 1.Acute kidney injury secondary to toxic acute tubular necrosis and questionable obstructive uropath y, resolved. 2.Complicated urinary tract infection, multi organism Enterococcus and Klebsiella pneumonia with fun guria. I agree with current antibiotic. The patient is going to need to have repeated urine culture after finished treatment to evaluate the recovery. 3.Hypothyroidism. Continue current treatment. 4.Obstructive uropathy as above. Continue Flomax. 5.Hypertension, controlled, optimal. Continue current medication. The patient cleared for discharge planning to follow up in the office in 2-3 weeks. JUDY Voice ID: [id number] Report ID: [id number]
== END 2018-01-09 11:35 | DRG 690 ==
LOC: ER 13:15 → ERHOLD 16:28 → 2ND 18:13
PROVIDERS: ADMIT Family Medicine; ATTEND Family Medicine
DX: N13.6 Pyonephrosis (principal); B37.49 Other urogenital candidiasis; J98.11 Atelectasis; N17.9 Acute kidney failure, unspecified; B95.2 Enterococcus as the cause of diseases classified elsewhere; E03.9 Hypothyroidism, unspecified; I12.9 Hypertensive chronic kidney disease with stage 1 through stage 4 chronic kidney disease, or unspecified chronic kidney disease; N18.2 Chronic kidney disease, stage 2 (mild); I69.30 Unspecified sequelae of cerebral infarction; F32.9 Major depressive disorder, single episode, unspecified; G62.9 Polyneuropathy, unspecified; E78.5 Hyperlipidemia, unspecified; D50.9 Iron deficiency anemia, unspecified; R91.8 Other nonspecific abnormal finding of lung field; B96.4 Proteus (mirabilis) (morganii) as the cause of diseases classified elsewhere; Z16.12 Extended spectrum beta lactamase (ESBL) resistance; Z74.01 Bed confinement status; G89.29 Other chronic pain; E83.42 Hypomagnesemia; K21.9 Gastro-esophageal reflux disease without esophagitis; E86.0 Dehydration; I25.10 Atherosclerotic heart disease of native coronary artery without angina pectoris; Z90.5 Acquired absence of kidney; Z88.0 Allergy status to penicillin; Z88.2 Allergy status to sulfonamides; Z91.041 Radiographic dye allergy status
CPT/HCPCS: 36415; 51702; 71045; 74176; 80048; 80076; 80202; 81001; 81003; 81015; 82550; 83605; 83690; 83735; 84134; 84145; 84484; 85014; 85018; 85025; 87040; 87077; 87086; 87088; 87186; 93005; 96361; 96365; 99285; J1650; J2185; J3475; J7030

== ENCOUNTER 2018-04-17 09:59 | Day surgery (SDC) | payer OTHER ==
[2018-04-17] MEDS ORDERED: PROPOFOL 200 MG/20 ML VIAL IV ONE (10:18)
[2018-04-17] MEDS ORDERED: FENTANYL CITR 100 MCG/2 ML ONE (10:18)
[2018-04-17] MEDS ORDERED: LIDOCAINE 2% MPF 5 ML VIAL ONE (10:18)
[2018-04-17] MEDS ORDERED: ONDANSETRON HCL 40 MG/20 ML VIAL ONE (10:20)
[2018-04-17] MEDS ORDERED: Ringers Lactate 1,000 ML IV ONE (10:22)
--- NOTE | 2018-04-17 10:35 | EKG ---
Test Date: 2018-04-17 Test Time: 10:27:20 [place]man: DIANE MEASUREMENT RESULTS: Intervals: Rate: 89 GA: 172 QRSD: 74 QT: 328 QTc: 399 Dexter: P: 39 GA: 172 QRS: -23 T: 58 INTERPRETIVE STATEMENTS: Normal sinus rhythm Inferior infarct, age undetermined Anterior infarct, age undetermined Abnormal ECG Compared to ECG 01/03/2018 13:21:29 No significant changes Electronically Signed On 04-17-18 10:34:27 CDT by Ronn Pedraza
[2018-04-17 10:38] LABS: Absolute Lymphocytes (CBC) 1.5 K/uL (0.7-4.9); Absolute Monocytes 0.9 K/uL (0.1-1.3); Absolute Neutrophil 10.4 K/uL (1.8-8.0); Basophils % 0.6 % (0-1.3); Eosinophils % 3.2 % (0-4.4); Hematocrit 32.5 % (36.0-45.0); MCH 29.2 pg (27.0-35.0); MCV 89.7 fL (80-100); MPV 7.3 fL (7.6-11.3); Monocytes % 6.5 % (3.3-12.3); RBC Red Blood Cell Count 3.63 M/uL (3.86-4.86)
[2018-04-17] MEDS ORDERED: CEFAZOLIN/SWI 1gm 1 GM/10 ML SYR ONE (10:49)
[2018-04-17 10:52] LABS: Potassium 3.7 mmol/L (3.5-5.1)
--- NOTE | 2018-04-17 10:53 | RAD REPORT ---
EXAM DESCRIPTION: RAD - Chest Single View - 04/17/2018 10:40 am CLINICAL HISTORY: PRE SURGERY Chest pain. COMPARISON: Chest Single View dated 01/03/2018; Chest Single View dated 12/12/2017; Chest Single View d ated 12/11/2017; Chest Single View dated 08/19/2017 FINDINGS: Portable technique limits examination quality. The lungs are grossly clear. The heart is normal in size. No displaced fractures. IMPRESSION: No acute intrathoracic process suspected.
[2018-04-17] MEDS ORDERED: EPHEDRINE SULF 50 MG/10 ML SYR ONE (11:07)
[2018-04-17] MEDS ORDERED: COLLAGENASE 30 GM OINTMENT TOP ONE (11:22)
[2018-04-17] MEDS: MORPHINE 4 MG/ML SYR ONE ×4 (11:40→11:55)
[2018-04-17] MEDS ORDERED: MORPHINE 4 MG/ML SYR ONE (12:25)
[2018-04-17] MEDS ORDERED: KETOROLAC 30 MG/ML INJ ONE (12:26)
[2018-04-17 13:05] VITALS: TEMP 97.6
[2018-04-17 13:38] VITALS: BP 142/54; O2SAT 96
--- NOTE | 2018-04-17 22:31 | OP ---
Date of Procedure: 04/17/2018 Surgeon: Alex Cooley MD Preoperative Diagnosis: Sacral decubitus. Postoperative Diagnosis: Sacral decubitus. Procedure: Excisional debridement of sacral decubitus, 6 x 6 cm to subcutaneous tissue. Estimated Blood Loss: Minimal. Specimen: Infected tissue. Findings: As above. Anesthesia: General. Complications: None. Disposition: The patient tolerated the procedure in stable condition and taken to recovery room in g ood general condition. Procedure In Detail: The patient was brought to the OR and placed in supine position. General anest hesia was begun. The patient was placed in left lateral position, prepped and draped in usual steril e fashion. Marcaine 0.5% infiltrated. The patient had a sacral decubitus approximately 6 x 6 cm wit h necrotic tissue in the center. It was just to the right of midline. The excisional debridement wa s performed with sharp dissection being controlled with cautery all the way down through the subcutan eous tissue, infected tissue. Sent to lab for culture and sensitivity. Wound irrigated. Bleeding c ontrolled with cautery. Collagenase dressing was applied. The patient tolerated the procedure well, taken to recovery room in good general condition. Discharge Note: The patient will go to day surgery and group home when stable. Disposition: retirement. Condition: Stable. Discharge Instructions: Resume previous diet and medications. Offloading. Nutritional optimization . Vitamins as ordered. Collagenase dressing daily. Tylenol No.3 one tablet p.o. q.4 p.r.n. pain. I will follow the patient. BALBINA/MODL Voice ID: [id number] Report ID: [id number]
== END 2018-04-17 14:00 | disposition home or self-care (01) ==
LOC: OR 09:59
PROVIDERS: ATTEND Surgery
PROC: 0JB70ZZ Excision of Back Subcutaneous Tissue and Fascia, Open Approach (ICD-10-PCS; principal; 2018-04-17 11:00)
DX: L89.159 Pressure ulcer of sacral region, unspecified stage (principal); I10 Essential (primary) hypertension; E03.9 Hypothyroidism, unspecified; Z88.0 Allergy status to penicillin; Z88.3 Allergy status to other anti-infective agents; Z86.73 Personal history of transient ischemic attack (TIA), and cerebral infarction without residual deficits
CPT/HCPCS: 11042; 11045; 36415; 71045; 80048; 85025; 87070 ×2; 87075; 87077 ×5; 87176; 87186 ×5; 87205 ×2; 88304; 93005; J0690; J2405; J3010; 88305; J3590

== ENCOUNTER 2018-05-15 08:14 | Day surgery (SDC) | payer OTHER ==
[2018-05-15] MEDS ORDERED: Ringers Lactate 1,000 ML IV ONE (09:34)
[2018-05-15] MEDS ORDERED: CEFAZOLIN/SWI 1gm 1 GM/10 ML SYR ONE (09:35)
[2018-05-15] MEDS ORDERED: PROPOFOL 200 MG/20 ML VIAL IV ONE (10:16)
[2018-05-15] MEDS ORDERED: ONDANSETRON 4 MG/2 ML VIAL ONE (10:17)
[2018-05-15] MEDS ORDERED: FENTANYL CITR 100 MCG/2 ML ONE (10:17)
[2018-05-15] MEDS ORDERED: LIDOCAINE 1% MPF 2 ML AMPULE ONE (10:17)
[2018-05-15] MEDS ORDERED: COLLAGENASE 30 GM OINTMENT TOP ONE (11:05)
[2018-05-15 14:33] VITALS: BP 117/64; TEMP 96.9; O2SAT 99
--- NOTE | 2018-05-15 22:27 | OP ---
Date of Procedure: 05/15/2018 Surgeon: Alex Cooley MD Preoperative Diagnosis: Sacral decubitus stage IV. Postoperative Diagnosis: Sacral decubitus stage IV. Procedure: Debridement of sacral decubitus down through the deep subcutaneous tissue, 13 x 8 cm. Estimated Blood Loss: Minimal. Specimen: Culture and sensitivity of infected tissue and the necrotic tissue. Finding: As above. Anesthesia: General. Complications: None. Disposition: The patient tolerated the procedure in stable condition and was taken to Recovery in go od general condition. Operative Note: The patient was brought to the OR, placed in supine position. General anesthesia wa s begun. The patient was placed in the right lateral position, prepped and draped in usual sterile f ashion. Marcaine 0.5% was infiltrated locally. The wound was measuring 13 x 8 cm and it extended al l the way down to the presacral fascia. There was a moderate amount of necrotic infected tissue whic h was debrided sharply. Bleeding controlled with cautery. Cultures were done. A good wound bed was accomplished with minimal fibrin present after the debridement was done. Wound irrigated. Bleeding controlled with cautery. Collagenase dressing applied. The patient was awakened and taken to [facility] in good general condition. Discharge Note: The patient will go to day surgery and custodial when stable. Disposition: detention. Condition: Fair. Prognosis: Guarded. This is discussed with the daughter before the surgery. Dressing orders will b e wound VAC with collagenase, Tylenol No. 3 one tablet p.o. q.4 p.r.n. pain, and the patient is curre ntly on IV antibiotics for ESBL infection, and I will follow the patient in the custodial. /MODL Voice ID: [id number] Report ID: [id number]
== END 2018-05-15 13:09 | disposition home or self-care (01) ==
LOC: OR 08:14
PROVIDERS: ATTEND Surgery
PROC: 0JD70ZZ Extraction of Back Subcutaneous Tissue and Fascia, Open Approach (ICD-10-PCS; principal; 2018-05-15 10:15)
DX: L89.154 Pressure ulcer of sacral region, stage 4 (principal); I10 Essential (primary) hypertension; G83.9 Paralytic syndrome, unspecified; R53.81 Other malaise; K21.9 Gastro-esophageal reflux disease without esophagitis; Z88.0 Allergy status to penicillin; Z88.2 Allergy status to sulfonamides; Z88.3 Allergy status to other anti-infective agents; Z86.73 Personal history of transient ischemic attack (TIA), and cerebral infarction without residual deficits
CPT/HCPCS: 11042; 11045 ×5; 87070; 87077; 87176; 87186; 87205; J0690; J2001; J2405; J2704; J3010; J3590

== ENCOUNTER 2021-10-03 18:10 | Inpatient (IN) | payer OTHER ==
--- NOTE | 2021-10-03 19:33 | RAD REPORT ---
EXAM DESCRIPTION: RAD - Foot Right 3 View - 10/03/2021 7:12 pm CLINICAL HISTORY: Right foot pain FINDINGS: No fracture or dislocation is seen Osteoporosis Cortical regularity involves the fifth proximal, middle and distal phalanx suspicious for osteomyelit is
[2021-10-03 19:51] LABS: Absolute Lymphocytes (CBC) 1.4 K/uL (0.7-4.9); Hematocrit 33.2 % (36.0-45.0); Lymphocytes % 10.9 % (15.3-44.8); RBC Red Blood Cell Count 3.83 M/uL (3.86-4.86)
--- NOTE | 2021-10-03 21:38 | EDPHYS ---
Physician Documentation [facility] Name: Leslie Crockett Age: 80 yrs Sex: Female : 1940 Arrival Date: 10/03/2021 Time: 18:31 Bed 18 Private MD: ED Physician Bishop Green HPI: 10/03 19:21 This 80 yrs old Female presents to ER via EMS with complaints of Foot Pain. pm1 19:21 The patient presents with pain. The complaints affect the right foot. Context: resulted pm1 from an unknown cause. Onset: The symptoms/episode began/occurred at an unknown time. Associated signs and symptoms: Pertinent negatives calf tenderness, fever. Severity of symptoms: in the emergency department the symptoms are actually worse. Patient sent to ER for evaluation of right 5th toe that is gangrenous. 19:21 Patient is currently taking clindamycin and Flagyl. pm1 Historical: - Allergies: 18:43 Iodine; kwok 18:43 PENICILLINS; kwok 18:43 sulfamethoxazole-trimethoprim; kwok - Home Meds: 18:43 Arginaid 4.5 gram-156 mg/9.2 gram Oral pwpk [Active]; ascorbic acid (vitamin C) 500 mg kwok tab [Active]; atorvastatin 40 mg Oral tab 1 tab once daily [Active]; Baclofen 5mg Oral twice a day [Active]; calcium carbonate 200 mg calcium (500 mg) Oral chew daily [Active]; Cipro 500 mg Oral tab 1 tab every 12 hours [Active]; Cytomel 25 mcg Oral tab 1 tab once daily [Active]; famotidine 20 mg Oral tab once daily [Active]; gabapentin 300 mg Oral cap 1 cap nightly [Active]; hydrocodone-acetaminophen 10-325 mg Oral tab 1 tab Q8H PRN [Active]; levothyroxine 50 mcg tab 1 tab once daily [Active]; lisinopril 10 mg Oral tab 1 tab once daily [Active]; metoprolol tartrate 50 mg Oral tab 1 tab 2 times per day [Active]; Naprosyn 500 mg Oral tab 1 tab 2 times per day [Active]; Plavix 75 mg Oral tab 1 tab once daily [Active]; simethicone 80 mg Oral chew [Active]; temazepam 15 mg Oral cap 1 cap once daily [Active]; Topamax Oral 1 tab 2 times per day [Active]; zinc sulfate 220 mg Oral tab [Active]; Zoloft 50 mg Oral tab 1 tab once daily [Active]; - PMHx: 18:43 Allergic rhinitis; Anxiety; constipation; CVA; GERD; Depression; hemiparesis; following kwok 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 - Social history:: Smoking status: unknown. ROS: 19:23 Constitutional: Negative for fever, chills, and weight loss, Cardiovascular: Negative pm1 for chest pain, palpitations, and edema, Respiratory: Negative for shortness of breath, cough, wheezing, and pleuritic chest pain. 19:23 MS/extremity: Positive for pain, of the right foot, Negative for decreased range of motion, deformity. 19:23 Skin: Positive for cellulitis, of the right fifth toe. 19:23 All other systems are negative. Exam: 19:23 Head/Face: Normocephalic, atraumatic. pm1 19:23 Constitutional: The patient appears in no acute distress, awake, comfortable, non-diaphoretic, non-toxic, well developed, well hydrated, well groomed, well nourished. 19:23 Eyes: Exam is negative for acute changes, Extraocular movements: no acute changes, Conjunctiva: no acute changes, no injection. 19:23 Cardiovascular: Exam negative for acute changes, Rate: normal, Rhythm: regular, Pulses: no pulse deficits are appreciated. 19:23 Respiratory: Exam negative for acute changes, respiratory distress, shortness of breath. 19:23 Musculoskeletal/extremity: Extremities: grossly normal except: noted in the right fifth toe: gangrenous toe with purulent discharge present. 19:23 Neuro: Exam negative for acute changes, Orientation: is normal, Mentation: is normal, Motor: is normal, moves all fours. Vital Signs: 18:31 BP 141 / 64; Pulse 80; Resp 17; Temp 97.8(O); Pulse Ox 94% on R/A; Weight 88.45 kg; kwok Height 5 ft. 6 in. (167.64 cm); 19:45 BP 144 / 78; Pulse 63; Resp 18; Pulse Ox 98% on R/A; sm5 20:45 BP 146 / 74; Pulse 72; Resp 16; Pulse Ox 93% on R/A; sm5 22:45 BP 128 / 69; Pulse 64; Resp 17; Pulse Ox 97% on 2 lpm NC; sm5 23:48 BP 105 / 83; Pulse 65; Resp 17; Pulse Ox 98% on 2 lpm NC; sm5 23:48 BP 136 / 58; Pulse 59; Resp 16; Pulse Ox 98% on R/A; sm5 18:31 Body Mass Index 31.47 (88.45 kg, 167.64 cm) kwok MDM: 18:34 Patient medically screened. pm1 20:35 Physician consultation: Alex Cooley MD Paged. pm1 21:32 Physician consultation: Alex Cooley MD was called at 21:32, was contacted at 21:32, pm1 regarding consult, patient's condition, Start the patient on Vancomycin. Preoperative work: Chest x-ray. EKG. Admit to the hospitalist for cardiac clearance. Would like arterial ultrasound of right leg. Contact family to determine the extent of aggressiveness of amputation. 21:35 Physician consultation: Claudia SAHU regarding admission, patient's condition, and pm1 will see patient in ED. 21:35 Data reviewed: vital signs. Data interpreted: Pulse oximetry: on room air is 98 %. pm1 Interpretation: normal. 10/03 18:39 Order name: CBC with Diff; Complete Time: 19:53 pm1 10/03 18:39 Order name: CMP; Complete Time: 21:40 pm1 10/03 18:39 Order name: Blood Culture Adult (2) pm1 10/03 18:39 Order name: Wound Culture pm1 10/03 18:39 Order name: Procalcitonin; Complete Time: 22:54 pm1 10/03 18:39 Order name: Lactate; Complete Time: 21:40 pm1 10/03 18:39 Order name: Foot Right 3 View XRAY; Complete Time: 19:35 pm1 10/03 18:39 Order name: COVID-19 SARS RT PCR (Document "Date of Onset" if Symptomatic); Complete pm1 Time: 20:22 10/03 21:30 Order name: Chest Single View XRAY pm1 10/04 03:57 Order name: CBC with Automated Diff EDMS 10/04 04:21 Order name: Comprehensive Metabolic Panel EDMS 10/04 04:21 Order name: Lipid Profile EDMA 10/04 04:21 Order name: T4 Free EDMA 10/04 04:21 Order name: Thyroid Stimulating Hormone [facility] 10/03 18:39 Order name: IV Saline Lock; Complete Time: 19:26 pm1 10/03 21:30 Order name: EKG; Complete Time: 21:31 pm1 10/03 21:30 Order name: EKG - Nurse/Tech; Complete Time: 23:18 pm1 10/03 21:30 Order name: Lower Extremity Artery Uni Ltd US; Complete Time: 22:18 pm1 10/03 21:57 Order name: CT Head Brain wo Cont pm1 Administered Medications: 22:10 Drug: vancoMYCIN 1 grams Route: IVPB; Infused Over: 2 hrs; Site: right forearm; sm5 22:10 Drug: NS 0.9% 500 ml Route: IV; Rate: bolus; Site: right forearm; sm5 23:32 Follow up: IV Status: Completed infusion; IV Intake: 500ml sm5 Disposition Summary: 10/03/21 21:37 Hospitalization Ordered Hospitalization Status: Inpatient Admission pm1 Provider: Ami Win pm1 Condition: Stable pm1 Problem: new pm1 Symptoms: have improved pm1 Bed/Room Type: Standard pm1 Location: Telemetry/MedSurg (Inpatient)(10/04/21 09:24) Room Assignment: [facility](10/04/21 09:24) Diagnosis - Osteomyelitis, unspecified - Right fifth toe pm1 Forms: - Medication Reconciliation Form pm1 - SBAR form pm1 Addendum: 10/15/2021 02:21 Co-signature as Attending Physician, Bishop Green MD. r n Signatures: Dispatcher [employer] Rosa Duval RN RN iw Nieto, Roman, MD MD rn Garcia, Cindy, RN RN cg Bright Rodriguez, HOME HOSPICE RN HOME HOSPICE RN pm1 Isabella Joe RN RN 5 Catalina Hayden RN RN kwok Corrections: (The following items were deleted from the chart) 10/03 22:28 21:37 Telemetry/MedSurg (Inpatient) pm1 22:28 21:37 pm1 10/04 09:24 10/03 22:28 [facility] ER HOLD [facility] 10/04 09:24 04/04 22:28 ERHOLD- cg iw
--- NOTE | 2021-10-03 21:38 | ER ---
Nurse's Notes [facility] Name: Leslie Crockett Age: 80 yrs Sex: Female : 1940 Arrival Date: 10/03/2021 Time: 18:31 Bed 18 Private MD: Diagnosis: Osteomyelitis, unspecified-Right fifth toe Presentation: 10/03 18:31 Chief complaint: EMS states: pt presented to ED with right pinky toe gangrene. was sent kwok by nursing facility to get evaluated. Coronavirus screen: Vaccine status: Patient reports receiving the 2nd dose of the covid vaccine. Ebola Screen: Patient denies travel to an Ebola-affected area in the 21 days before illness onset. Initial Sepsis Screen: Does the patient meet any 2 criteria? No. Patient's initial sepsis screen is negative. Does the patient have a suspected source of infection? No. Patient's initial sepsis screen is negative. Risk Assessment: Do you want to hurt yourself or someone else? Patient reports no desire to harm self or others. Onset of symptoms is unknown. 18:31 Method Of Arrival: EMS: [facility] kwok 18:31 Acuity: CINTHIA 3 kwok Triage Assessment: 18:47 General: Appears in no apparent distress. Behavior is calm, cooperative. kwok Historical: - Allergies: 18:43 Iodine; kwok 18:43 PENICILLINS; kwok 18:43 sulfamethoxazole-trimethoprim; kwok - Home Meds: 18:43 Arginaid 4.5 gram-156 mg/9.2 gram Oral pwpk [Active]; ascorbic acid (vitamin C) 500 mg kwok tab [Active]; atorvastatin 40 mg Oral tab 1 tab once daily [Active]; Baclofen 5mg Oral twice a day [Active]; calcium carbonate 200 mg calcium (500 mg) Oral chew daily [Active]; Cipro 500 mg Oral tab 1 tab every 12 hours [Active]; Cytomel 25 mcg Oral tab 1 tab once daily [Active]; famotidine 20 mg Oral tab once daily [Active]; gabapentin 300 mg Oral cap 1 cap nightly [Active]; hydrocodone-acetaminophen 10-325 mg Oral tab 1 tab Q8H PRN [Active]; levothyroxine 50 mcg tab 1 tab once daily [Active]; lisinopril 10 mg Oral tab 1 tab once daily [Active]; metoprolol tartrate 50 mg Oral tab 1 tab 2 times per day [Active]; Naprosyn 500 mg Oral tab 1 tab 2 times per day [Active]; Plavix 75 mg Oral tab 1 tab once daily [Active]; simethicone 80 mg Oral chew [Active]; temazepam 15 mg Oral cap 1 cap once daily [Active]; Topamax Oral 1 tab 2 times per day [Active]; zinc sulfate 220 mg Oral tab [Active]; Zoloft 50 mg Oral tab 1 tab once daily [Active]; - PMHx: 18:43 Allergic rhinitis; Anxiety; constipation; CVA; GERD; Depression; hemiparesis; following kwok 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 - Social history:: Smoking status: unknown. Screenin:43 Abuse screen: Denies threats or abuse. Denies injuries from another. Nutritional kwok screening: No deficits noted. Tuberculosis screening: No symptoms or risk factors identified. Fall Risk Mental Status-. Assessment: 18:40 Pain: Denies pain. Derm: Wound noted right fourth toe and Right fifth toenail Other: kwok gangrene to right pinky toe. 19:48 General: Appears in no apparent distress. Behavior is calm. Neuro: Level of 5 Consciousness is awake, alert. Cardiovascular: No deficits noted. Capillary refill < 3 seconds Patient's skin is warm and dry. Respiratory: No deficits noted. Airway is patent Trachea midline Respiratory effort is even, unlabored. Derm: Wound noted right fifth toe and right foot and right fourth toe. 21:00 Reassessment: No changes from previously documented assessment. pt asleep. sm5 22:08 Reassessment: No changes from previously documented assessment. Patient and/or family 5 updated on plan of care and expected duration. Pain level reassessed. 23:19 Reassessment: No changes from previously documented assessment. sm5 10/04 00:25 Reassessment: No changes from previously documented assessment. 5 Vital Signs: 10/03 18:31 BP 141 / 64; Pulse 80; Resp 17; Temp 97.8(O); Pulse Ox 94% on R/A; Weight 88.45 kg; kwok Height 5 ft. 6 in. (167.64 cm); 19:45 BP 144 / 78; Pulse 63; Resp 18; Pulse Ox 98% on R/A; sm5 20:45 BP 146 / 74; Pulse 72; Resp 16; Pulse Ox 93% on R/A; sm5 22:45 BP 128 / 69; Pulse 64; Resp 17; Pulse Ox 97% on 2 lpm NC; sm5 23:48 BP 105 / 83; Pulse 65; Resp 17; Pulse Ox 98% on 2 lpm NC; sm5 23:48 BP 136 / 58; Pulse 59; Resp 16; Pulse Ox 98% on R/A; sm5 18:31 Body Mass Index 31.47 (88.45 kg, 167.64 cm) ED Course: 18:31 Patient arrived in ED. kwok 18:34 Bright Rodriguez NP is PHCP. pm1 18:34 Bishop Green MD is Attending Physician. pm1 18:40 Triage completed. kwok 18:43 Patient has correct armband on for positive identification. Bed in low position. Side kwok rails up X2. 18:43 No provider procedures requiring assistance completed. kwok 18:47 Arm band placed on. kwok 19:08 Isabella Joe, VIRGIE is Primary Nurse. sm5 19:10 X-ray completed. Portable x-ray completed in exam room. Patient tolerated procedure mh1 well. 19:14 Foot Right 3 View XRAY In Process Unspecified. EDMS 19:22 Inserted saline lock: 22 gauge in right forearm, using aseptic technique. Blood ds4 collected. 21:37 Ami Win MD is Hospitalizing Provider. pm1 21:54 Lower Extremity Artery Uni Ltd US In Process Unspecified. EDMS 22:27 CT Head Brain wo Cont In Process Unspecified. EDMS 22:32 Chest Single View XRAY In Process Unspecified. EDMS Administered Medications: 22:10 Drug: vancoMYCIN 1 grams Route: IVPB; Infused Over: 2 hrs; Site: right forearm; sm5 22:10 Drug: NS 0.9% 500 ml Route: IV; Rate: bolus; Site: right forearm; sm5 23:32 Follow up: IV Status: Completed infusion; IV Intake: 500ml sm5 Intake: 23:32 IV: 500ml; Total: 500ml. sm5 Outcome: 21:37 Decision to Hospitalize by Provider. pm1 05 11:10 Patient left the ED. iw Signatures: Dispatcher [employer] Alva [place] mh1 Rosa Mishra, RN RN iw Caio Hurtado ds4 Bright Rodriguez, [employer] pm1 Isabella Joe, RN RN sm5 Catalina Hadyen RN RN kwok
[2021-10-03 21:39] LABS: Albumin 2.7 g/dL (3.4-5.0); Bilirubin Total 0.3 mg/dL (0.2-1.0); Potassium 4.4 mmol/L (3.5-5.1); Protein, Total 7.8 g/dL (6.4-8.2)
--- NOTE | 2021-10-03 22:04 | RAD REPORT ---
EXAM DESCRIPTION: US - Lower Extremity Artery Uni Ltd - 10/03/2021 9:53 pm CLINICAL HISTORY: Leg pain COMPARISON: None FINDINGS: The right common femoral, superficial femoral, popliteal, posterior tibial and dorsalis pedis arterie s demonstrated biphasic and triphasic waveforms Grayscale, color and spectral analysis performed on all vessels IMPRESSION: Mild right lower extremity arterial disease
[2021-10-03] MEDS ORDERED: NA CHLORIDE 0.9% 250 ML ONE (22:05)
[2021-10-03] MEDS ORDERED: VANCOMYCIN 1 GM/VIAL ONE (22:05)
[2021-10-03] MEDS ORDERED: NA CHLORIDE 0.9% 500 ML ONE (22:05)
--- NOTE | 2021-10-04 00:58 | P.HP ---
Certification for Inpatient Patient admitted to: Inpatient With expected LOS: >2 Midnights Patient will require the following post-hospital care: [facility] Practitioner: I am a practitioner with admitting privileges, knowledge of patient current condition, hospital course, and medical plan of care. Services: Services provided to patient in accordance with Admission requirements found in Title 42 Section 412.3 of the Code of Federal Regulations <Claudia Ceballos - Last Filed: 10/04/21 00:53> Patient History Date of Service: 10/04/21 Primary Care Provider: Dr. Garza Reason for admission: Osteomyelitis R 5th Toe History of Present Illness: Patient is an 80-year-old female with past medical history of CVA with right-sided deficits, hemiparesis, hypertension, hypothyroidism who presented to the ED via EMS because custodial wanted her R pinky toe to get checked out. She had been taking clindamycin and Flagyl for infection of the toe. Upon presentation it appears gangrenous. X-ray showed signs of osteomyelitis. Labs significant for WBC 12.4, hemoglobin 10.3, creatinine 1.37, albumin 2.7. Pro- Eloy and lactic acid within normal limits. Vital signs stable. Patient's baseline mental status is unknown. She is unable to answer questions. She states that she cannot hear you when you speak to her however she seems agitated and confused. Patient has been seen by Dr. Cooley in the past, he has been notified. He wishes to admit patient and start on vancomycin and plan for surgery tomorrow. Will admit patient for medical management. Home medications list reviewed: Yes - Past Medical/Surgical History Diabetic: No -: History CVA residual right-sided weakness, bed-bound (07/19) -: Hypothyroidism -: Depression with anxiety -: Iron deficiency anemia -: Chronic renal disease -: Hypertension -: Neuropathy -: GERD -: chronic pain -: essential hypertension -: GERD -: polyosteoarthritis -: cholecystectomy -: hysterectomy -: R nephrostomy -: VALORIE knee repair -: right arm repair Psychosocial/ Personal History: Patient lives at custodial. - Family History Family History: Reviewed- Non-Contributory - Social History Smoking Status: Never smoker Alcohol use: No CD- Drugs: No Caffeine use: No Place of Residence: [facility] <Claudia Ceballos - Last Filed: 10/04/21 00:53> Date of Service: 10/04/21 <WinJeanecho Tico - Last Filed: 10/06/21 02:12> Allergies iodine Allergy (Verified 04/17/18 10:21) Hives/Rash Penicillins Allergy (Verified 04/17/18 10:21) Hives/Rash sulfamethoxazole [From Bactrim] Adverse Reaction (Verified 04/17/18 10:21) Nausea/Vomiting trimethoprim [From Bactrim] Adverse Reaction (Verified 04/17/18 10:21) Nausea/Vomiting sulfamet Allergy (Uncoded 04/17/18 10:21) Unknown sulfamethoxazole Allergy (Uncoded 04/17/18 10:21) Unknown Home Medications: Levothyroxine Sodium 100 mcg PO GNUTO2HO 07/03/17 Ascorbic Acid [Vitamin C*] 500 mg PO DAILY 12/11/17 Buspirone HCl [Buspar] 20 mg PO TID 10/05/21 Docusate Sodium [Stool Softener] 100 mg PO BID 10/05/21 Morphine *Extended Release* [MS Contin*] 15 mg PO TID 10/05/21 Multivitamin 1 tab PO DAILY 10/05/21 Paroxetine HCl [Paroxetine ER] 50 mg PO DAILY 10/05/21 Trazodone HCl [Desyrel] 300 mg PO BEDTIME 10/05/21 Zinc Sulfate [Zinc Sulfate*] 220 mg PO DAILY 10/05/21 Review of Systems is unable to be obtained <Claudia Ceballos - Last Filed: 10/04/21 00:53> Physical Examination - Physical Exam General: In no apparent distress, Demented, Confused HEENT: Atraumatic, PERRLA, Mucous membr. moist/pink, EOMI, Sclerae nonicteric Neck: Supple, 2+ carotid pulse no bruit, No LAD, Without JVD or thyroid abnormality Respiratory: Clear to auscultation bilaterally, Normal air movement Cardiovascular: Regular rate/rhythm, Normal S1 S2 Gastrointestinal: Normal bowel sounds, No tenderness Musculoskeletal: No tenderness Integumentary: Skin breakdown (wet gangrene of R 5th toe ) Neurological: Normal tone, Dementia Lymphatics: No axilla or inguinal lymphadenopathy Urinary: Alvarez catheter - Studies Laboratory Data (last 24 hrs) 10/03/21 20:58: Sodium 138, Potassium 4.4, BUN 44 H, Creatinine 1.37 H, Glucose 134 H, Total Bilirubin 0.3, AST 15, ALT 15, Alkaline Phosphatase 109 10/03/21 19:05: WBC 12.4 H, Hgb 10.3 L, Hct 33.2 L D, Plt Count 602 H <Claudia Ceballos - Last Filed: 10/04/21 00:53> Assessment and Plan - Problems (Diagnosis) (1) Osteomyelitis Current Visit: Yes Status: Acute Qualifiers: Osteomyelitis type: other acute Osteomyelitis location: other site Qualified Code(s): M86.18 - Other acute osteomyelitis, other site (2) Altered mental status Current Visit: Yes Status: Acute Qualifiers: Altered mental status type: unspecified (3) Anemia Onset Date: 08/20/17 Current Visit: Yes Status: Chronic Qualifiers: Anemia type: due to chronic kidney disease Chronic kidney disease stage: st age 3 (moderate) Chronic kidney disease stage 3 subtype: stage 3b (GFR 30-44) Qualified Code(s): N18.32 - Chronic kidney disease, stage 3b; D63.1 - Anemia in chronic kidney disease (4) Dysphagia Current Visit: Yes Status: Chronic Qualifiers: Dysphagia type: unspecified Qualified Code(s): R13.10 - Dysphagia, unspecified (5) Leucocytosis Onset Date: 08/20/17 Current Visit: Yes Status: Chronic Qualifiers: Leukocytosis type: unspecified Qualified Code(s): D72.829 - Elevated white blood cell count, unspecified (6) Moderate protein-calorie malnutrition Current Visit: Yes Status: Chronic - Plan -Dr. Cooley has operated on patient in the past. He has been consulted. He wishes for patient to be started on vancomycin. Patient was taking clindamycin and Flagyl previously. NPO. IVF hydration overnight. -X-ray of right foot showed signs of osteomyelitis. MRI ordered for the morning. -Patient is confused and aphasic. When asked questions, patient screams back "I cannot hear you " -WBC elevated at 12.4. Lactic acid and pro-Eloy within normal limits. VSS. Wound culture and blood cultures obtained -Head CT negative -Urinalysis pending -Continue home medications as appropriate DVT PPx: Lovenox Code: Full Discharge Plan: [facility] Plan to discharge in: Greater than 2 days - Advance Directives Does patient have a Living Will: Yes Does patient have a Durable POA for Healthcare: No - Code Status/Comfort Care Code Status Assessed: Yes (Full) Critical Care: No Time Spent Managing Pts Care (In Minutes): 70 <Claudia Ceballos - Last Filed: 10/04/21 00:53> - Problems (Diagnosis) (1) Altered mental status Current Visit: Yes Status: Acute Qualifiers: Altered mental status type: unspecified Qualified Code(s): R41.82 - Altered mental status, unspecified (2) Osteomyelitis Current Visit: Yes Status: Acute Qualifiers: Osteomyelitis type: other acute Osteomyelitis location: other site Qualified Code(s): M86.18 - Other acute osteomyelitis, other site (3) Anemia Onset Date: 08/20/17 Current Visit: Yes Status: Chronic Qualifiers: Anemia type: due to chronic kidney disease Chronic kidney disease stage: stage 3 (moderate) Chronic kidney disease stage 3 subtype: stage 3b (GFR 30- 44) Qualified Code(s): N18.32 - Chronic kidney disease, stage 3b; D63.1 - Anemia in chronic kidney disease (4) CVA (cerebral vascular accident) Onset Date: 07/05/17 Current Visit: No Status: Acute Qualifiers: CVA mechanism: other Qualified Code(s): I63.89 - Other cerebral infarction (5) Chronic renal disease Onset Date: 01/04/18 Current Visit: No Status: Acute Qualifiers: (6) History of CVA with residual deficit Current Visit: No Status: Chronic (7) Hyperlipidemia Onset Date: 01/04/18 Current Visit: No Status: Chronic Qualifiers: Hyperlipidemia type: unspecified Qualified Code(s): E78.5 - Hyperlipidemia, unspecified (8) Hypertension Onset Date: 07/05/17 Current Visit: No Status: Chronic Qualifiers: Hypertension type: essential hypertension (9) Hypothyroidism Onset Date: 01/04/18 Current Visit: No Status: Chronic Qualifiers: Hypothyroidism type: unspecified Qualified Code(s): E03.9 - Hypothyroidism, unspecified (10) Neuropathy Onset Date: 01/04/18 Current Visit: No Status: Chronic (11) Paraplegia Onset Date: 07/05/17 Current Visit: No Status: Chronic <Ami Win - Last Filed: 10/06/21 02:12> Date of Service: 10/04/21 Subjective Agree with plan of care as mentioned above Review of Systems 10-point ROS is otherwise unremarkable Physical Examination - Vital Signs Reviewed - Physical Exam General: Other (Difficulty hearing. Arousable. Interacts but cannot really hear.) Respiratory: Diminished, Crackles/rales Cardiovascular: Regular rate/rhythm, Normal S1 S2, Systolic murmur Gastrointestinal: Normal bowel sounds, Soft and benign, Non-distended, No tenderness Musculoskeletal: No clubbing, No swelling, No tenderness Integumentary: Tenderness/swelling, Erythema, Warmth, Diabetic ulcer, Other (Screw coming out of the left foot) Neurological: Sensation intact, Cranial nerves 3-12 intact Assessment & Plan - Problems (Diagnosis) (1) Altered mental status Current Visit: Yes Status: Acute Qualifiers: Altered mental status type: unspecified Qualified Code(s): R41.82 - Altered mental status, unspecified (2) Osteomyelitis Current Visit: Yes Status: Acute Qualifiers: Osteomyelitis type: other acute Osteomyelitis location: other site Qualified Code(s): M86.18 - Other acute osteomyelitis, other site (3) Anemia Onset Date: 08/20/17 Current Visit: Yes Status: Chronic Qualifiers: Anemia type: due to chronic kidney disease Chronic kidney disease stage: stage 3 (moderate) Chronic kidney disease stage 3 subtype: stage 3b (GFR 30- 44) Qualified Code(s): N18.32 - Chronic kidney disease, stage 3b; D63.1 - Anemia in chronic kidney disease (4) CVA (cerebral vascular accident) Onset Date: 07/05/17 Current Visit: No Status: Acute CVA mechanism: other Qualified Code(s): I63.89 - Other cerebral infarction (5) Chronic renal disease Onset Date: 01/04/18 Current Visit: No Status: Acute (6) History of CVA with residual deficit Current Visit: No Status: Chronic (7) Hyperlipidemia Onset Date: 01/04/18 Current Visit: No Status: Chronic Hyperlipidemia type: unspecified Qualified Code(s): E78.5 - Hyperlipidemia, unspecified (8) Hypertension Onset Date: 07/05/17 Current Visit: No Status: Chronic (9) Hypothyroidism Onset Date: 01/04/18 Current Visit: No Status: Chronic Hypothyroidism type: unspecified Qualified Code(s): E03.9 - Hypothyroidism, unspecified (10) Neuropathy Onset Date: 01/04/18 Current Visit: No Status: Chronic (11) Paraplegia Onset Date: 07/05/17 Current Visit: No Status: Chronic - Plan Plan of care as mentioned below: 1. Continue with IV antibiotic 2. Continue with local wound care 3. Wound care consultation/orthopedic/surgical consultation appreciated 4. Hep-Lock IV 5. Monitor CBC 6. Strict blood sugar monitoring 7. Pain control 8. GI and DVT prophylaxis Discharge Plan: [facility] Plan to discharge in: Greater than 2 days - Advance Directives Does patient have a Living Will: Yes Does patient have a Durable POA for Healthcare: No - Code Status/Comfort Care Code Status Assessed: Yes Code Status: Full Code Critical Care: No Time Spent Managing PTS Care (In Minutes): 45 <Ami Win - Last Filed: 10/06/21 02:12>
[2021-10-04] MEDS ORDERED: LORazepam 2 MG/ML VIAL IV PRN (01:08)
[2021-10-04] MEDS ORDERED: ONDANSETRON 4 MG/2 ML VIAL IV PRN (01:08)
[2021-10-04] MEDS ORDERED: VANCOMYCIN 1 GM in NA CHLORIDE 0.9% 250 ML IVPB SCH (01:08)
[2021-10-04] MEDS ORDERED: ACETAMINOPHEN 500 MG TAB PO PRN (01:08)
[2021-10-04] MEDS ORDERED: VANCOMYCIN 500 MG in NA CHLORIDE 0.9% 100 ML IVPB ONE (01:30)
[2021-10-04 01:34] VITALS: BMI 23.3
[2021-10-04] MEDS ORDERED: NA CHLORIDE 0.9% 100 ML IV ONE (03:37)
[2021-10-04] MEDS ORDERED: VANCOMYCIN 1 GM/VIAL ONE (03:37)
[2021-10-04 03:56] LABS: Absolute Lymphocytes (CBC) 1.7 K/uL (0.7-4.9); Lymphocytes % 10.4 % (15.3-44.8); MPV 6.7 fL (7.6-11.3); RBC Red Blood Cell Count 3.82 M/uL (3.86-4.86)
[2021-10-04 04:18] LABS: Albumin 2.6 g/dL (3.4-5.0); Bilirubin Total 0.2 mg/dL (0.2-1.0); Potassium 4.2 mmol/L (3.5-5.1); Protein, Total 7.5 g/dL (6.4-8.2)
[2021-10-04 04:21] LABS: Thyroid Stimulating Hormone 9.03 uIU/mL (0.360-3.740)
--- NOTE | 2021-10-04 08:15 | RAD REPORT ---
EXAM DESCRIPTION: Beth Single View10/03/2021 10:31 pm CLINICAL HISTORY: Preop COMPARISON: 2018 FINDINGS: The patient is in a relatively poor degree inspiration. The The lungs appear clear of acute infiltrate. The heart is normal size
--- NOTE | 2021-10-04 08:30 | EKG ---
Test Date: 2021-10-03 Test Time: 23:06:11 Can Pusher: SANIA MEASUREMENT RESULTS: Intervals: Rate: 89 KS: 144 QRSD: 76 QT: 322 QTc: 391 [place]: P: 4 KS: 144 QRS: -24 T: 45 INTERPRETIVE STATEMENTS: Sinus rhythm with occasional premature ventricular complexes Minimal voltage criteria for LVH, may be normal variant Inferior infarct, age undetermined Possible Anterior infarct, age undetermined Abnormal ECG Compared to ECG 04/17/2018 10:27:20 Ventricular premature complex(es) now present Left ventricular hypertrophy now present Myocardial infarct finding still present Electronically Signed On 10-04-21 08:27:53 CDT by Papo Celestin
[2021-10-04] MEDS ORDERED: VANCOMYCIN 1.25 GM in NA CHLORIDE 0.9% 250 ML IVPB SCH (11:00)
[2021-10-04] MEDS: ENOXAPARIN 30 MG/0.3 ML SQ SCH (11:45)
--- NOTE | 2021-10-04 12:14 | RAD REPORT ---
EXAM DESCRIPTION: CT - Head Brain Wo Cont - 10/04/2021 4:35 am CLINICAL HISTORY: CONFUSED COMPARISON: CT head August 16, 2017 TECHNIQUE: Multiple helical axial tomographic images were obtained of the head without intravenous c ontrast. This exam was performed according to our departmental dose-optimization program, which inclu dao automated exposure control, adjustment of the mA and/or kV according to patient size and/or use o f iterative reconstruction technique. FINDINGS: Encephalomalacia in the medial left frontal lobe is demonstrated suggestive of remote insu lt. Generalized brain volume loss is noted. There is mild periventricular hypoattenuation suggesting chronic microvascular ischemic changes. There is no acute intracranial hemorrhage. No mass. No midlin e shift. No ventriculomegaly. Motta-white matter differentiation is maintained. Paranasal sinuses are clear. Mastoid air cells and middle ear spaces are clear. Orbits and orbital co ntents are unremarkable. Osseous structures are unremarkable. Surrounding soft tissues are unremarkable. IMPRESSION: 1. No acute intracranial process. 2. Chronic appearing changes as above. Electronically signed by: Miguel Castorena MD 10/03/2021 10:52 PM CDT Due to temporary technical issues with the PACS/Fluency reporting system, reports are being signed by the in house radiologists without review as a courtesy to insure prompt reporting. The interpreting radiologist is fully responsible for the content of the report.
--- NOTE | 2021-10-04 13:48 | ECHO ---
HEIGHT: 5 ft 6 in WEIGHT: 145 lb 0 oz DATE OF STUDY: 10/04/[address]: Ami Win MD 2-DIMENSIONAL: YES M.MODE: YES DOPPLER: YES COLOR FLOW: YES TDS: YES PORTABLE: NO DEFINITY: NO BUBBLE STUDY: NO DIAGNOSIS: PREOPERATIVE CARDIAC HISTORY: CATHERIZATION: NO SURGERY: NO PROSTHETIC VALVE: NO PACEMAKER: NO MEASUREMENTS (cm) DIASTOLIC (NORMALS) SYSTOLIC (NORMALS) IVSd 1.0 (0.6-1.2) LA Diam 2.3 (1.9-4.0) LVEF 77% LVIDd 4.4 (3.5-5.7) LVIDs 2.4 (2.0-3.5) %FS 45% LVPWd 1.0 (0.6-1.2) Ao Diam 2.6 (2.0-3.7) 2 DIMENSIONAL ASSESSMENT: RIGHT ATRIUM: NORMAL LEFT ATRIUM: NORMAL RIGHT VENTRICLE: NORMAL LEFT VENTRICLE: NORMAL TRICUSPID VALVE: NORMAL MITRAL VALVE: MITRAL ANNULAR CALFICATION PULMONIC VALVE: NORMAL AORTIC VALVE: SCLEROTIC PERICARDIAL EFFUSION: NONE AORTIC ROOT: NORMAL LEFT VENTRICULAR WALL MOTION: NORMAL DOPPLER/COLOR FLOW: NORMAL COMMENTS: NORMAL LEFT VENTRICULAR SIZE AND FUNCTION. LEFT VENTRICULAR EJECTION FRACTION 77%. MITRAL ANNULAR CALFICATION. AORTIC SCLEROSIS WITH NO STENOSIS. TECHNOLOGIST: Dae THOMAS
--- NOTE | 2021-10-04 13:50 | P.CNS ---
Date of Consult: 10/04/21 Reason for consult: Right foot infection History of present illness: Patient is a 80-year-old female with multiple medical problems who presented to the emergency room from the [facility] with a infected right foot wound. Patient was being treated with oral antibiotics at the correction without improvement. No purulent discharge or fever or chills present. No sore throat, runny nose, headaches, dizziness, chest pain noted. Patient is bedridden with weakness and debility. Review of systems: Otherwise unremarkable Past medical history: Stroke, hypothyroidism, hypertension, weakness, debility Past surgical history: Cholecystectomy, hysterectomy, right nephrostomy, bilateral knee replacement, right arm surgery Allergies: Iodine, Bactrim Social history: She does not smoke or drink alcohol Family history: Noncontributory Vital signs: Vital signs stable patient is afebrile Physical exam: Awake and alert, hard of hearing Head and neck exam: Cranial nerves II through XII grossly within normal limits, no JVD, no neck masses, throat clear and neck is supple Chest: Clear Heart: S1-S2 Abdomen: Soft Extremity: Diminished dorsalis pedis and posterior tibial pulses, contracture of the lower extremity, fifth toe with gangrene extending to the metatarsal area and very close to the fourth toe surrounded by erythema warmth and edema. Left foot on the distal aspect laterally has a screw that is visible. Neuro: Nonfocal Diagnostic data: Patient has leukocytosis and osteomyelitis on x-ray. Arterial Doppler shows minimal arterial disease. Assessment: 80-year-old female with multiple medical problems with osteomyelitis and gangrene involving the right lateral foot. Foreign body in the left foot. Plan/recommendation: IV antibiotics, n.p.o. after midnight and to the operating room in the morning for right fourth and fifth toe transmetatarsal amputation. Son understands risk, benefits, alternatives and agrees to procedure. We will also get orthopedics to see if the foreign body can be removed at the same time as the surgery. CC: 's Office
[2021-10-05 00:26] LABS: Urine Appearance Cloudy (Clear); Urine Bilirubin Negative (Negative); Urine Color Yellow (Yellow); Urine Glucose Negative (Negative)
[2021-10-05 00:27] LABS: Urine Blood Negative (Negative); Urine Protein 2+ (Negative); Urine Urobilinogen 0.2 mg/dL (0.2-1.0)
[2021-10-05 00:29] LABS: Urine Microscopic Reflex ORDER UMIC
[2021-10-05 01:07] LABS: Urine Bacteria >50 /HPF (<20)
[2021-10-05 01:08] LABS: Urine RBC <5 /HPF (NONE SEEN); Urine Triple Phosphate Crystal FEW (NONE SEEN)
[2021-10-05 04:16] LABS: Absolute Lymphocytes (CBC) 1.6 K/uL (0.7-4.9); Hematocrit 31.2 % (36.0-45.0); Lymphocytes % 12.7 % (15.3-44.8); RBC Red Blood Cell Count 3.57 M/uL (3.86-4.86)
[2021-10-05 04:26] LABS: Albumin 2.4 g/dL (3.4-5.0); Bilirubin Total 0.2 mg/dL (0.2-1.0); Potassium 4.3 mmol/L (3.5-5.1)
[2021-10-05] MEDS ORDERED: BUPIVACAINE 0.5% PF 10 ML VIAL ONE (07:31)
[2021-10-05] MEDS ORDERED: COLLAGENASE 30 GM OINTMENT TOP ONE (07:31)
[2021-10-05] MEDS ORDERED: Ringers Lactate 1,000 ML IV ONE (08:16)
[2021-10-05] MEDS: ENOXAPARIN 30 MG/0.3 ML SQ SCH (08:38)
[2021-10-05] MEDS ORDERED: LIDOCAINE 1% MPF 2 ML AMPULE ONE (08:48)
[2021-10-05] MEDS ORDERED: propofoL 200 MG/20 ML VIAL IV ONE (08:48)
[2021-10-05] MEDS ORDERED: NS 0.9% VIAL 20 ML ONE (09:19)
[2021-10-05] MEDS ORDERED: LIDOCAINE 1% MPF 30 ML VIAL ONE (09:21)
--- NOTE | 2021-10-05 09:25 | RAD REPORT ---
EXAM DESCRIPTION: RAD - Foot Left 3 View - 10/05/2021 8:57 am CLINICAL HISTORY: diagnostic COMPARISON: <Comparisons> FINDINGS/IMPRESSION: Surgical changes at the first tarsal metatarsal joint and fifth metatarsal. Ost eopenia. Sclerosis and lucency is present at the dorsal aspect of the calcaneus. Cannot exclude a str ess fracture. No radiographic evidence of osteomyelitis however note that MRI is more sensitive in th e acute phase.
[2021-10-05] MEDS ORDERED: VANCOMYCIN 1.25 GM in NA CHLORIDE 0.9% 250 ML IVPB SCH ×2 (10:00→13:30)
--- NOTE | 2021-10-05 12:34 | P.BOP ---
Preoperative diagnosis: retained right screw, foot Postoperative diagnosis: same Estimated blood loss: <5 ccs Complications: None Transferred to: Other
--- NOTE | 2021-10-05 12:41 | P.PN ---
Subjective Date of Service: 10/05/21 Subjective: No new changes, No C/O voiced Patient going to the OR today. Patient will have right toe amputation as well as screw removed from the left foot. We will place a central line because PICC line was not able to get placed. We will also arrange for IV antibiotics x6 weeks. Patient will need vancomycin. Patient will continue this at the nursing facility. Anticipate discharge tomorrow. Review of Systems 10-point ROS is otherwise unremarkable Physical Examination - Vital Signs Temperature: 97.2 F Blood Pressure: 100/58 Pulse: 74 Respirations: 17 Pulse Ox (%): 97 - Physical Exam General: Other (Difficulty hearing. Arousable. Interacts but cannot really hear.) Respiratory: Diminished, Crackles/rales Cardiovascular: Regular rate/rhythm, Normal S1 S2, Systolic murmur Gastrointestinal: Normal bowel sounds, Soft and benign, Non-distended, No tenderness Musculoskeletal: No clubbing, No swelling, No tenderness Integumentary: Tenderness/swelling, Erythema, Warmth, Diabetic ulcer, Other (Screw coming out of the left foot) Neurological: Sensation intact, Cranial nerves 3-12 intact - Studies Microbiology Data (last 24 hrs): 10/03/21 19:22 Blood - Blood Anaerobic Blood Culture - Final 10/03/21 19:05 Blood - Blood Anaerobic Blood Culture - Final Medications List Reviewed: Yes Assessment & Plan - Problems (Diagnosis) (1) Altered mental status Current Visit: Yes Status: Acute Qualifiers: Altered mental status type: unspecified Qualified Code(s): R41.82 - Altered mental status, unspecified (2) Osteomyelitis Current Visit: Yes Status: Acute Qualifiers: Osteomyelitis type: other acute Osteomyelitis location: other site Qualified Code(s): M86.18 - Other acute osteomyelitis, other site (3) Anemia Onset Date: 08/20/17 Current Visit: Yes Status: Chronic Qualifiers: Anemia type: due to chronic kidney disease Chronic kidney disease stage: stage 3 (moderate) Chronic kidney disease stage 3 subtype: stage 3b (GFR 30- 44) Qualified Code(s): N18.32 - Chronic kidney disease, stage 3b; D63.1 - Anemia in chronic kidney disease (4) CVA (cerebral vascular accident) Onset Date: 07/05/17 Current Visit: No Status: Acute Qualifiers: CVA mechanism: other Qualified Code(s): I63.89 - Other cerebral infarction (5) Chronic renal disease Onset Date: 01/04/18 Current Visit: No Status: Acute Qualifiers: (6) History of CVA with residual deficit Current Visit: No Status: Chronic (7) Hyperlipidemia Onset Date: 01/04/18 Current Visit: No Status: Chronic Qualifiers: Hyperlipidemia type: unspecified Qualified Code(s): E78.5 - Hyperlipidemia, unspecified (8) Hypertension Onset Date: 07/05/17 Current Visit: No Status: Chronic Qualifiers: Hypertension type: essential hypertension (9) Hypothyroidism Onset Date: 01/04/18 Current Visit: No Status: Chronic Qualifiers: Hypothyroidism type: unspecified Qualified Code(s): E03.9 - Hypothyroidism, unspecified (10) Neuropathy Onset Date: 01/04/18 Current Visit: No Status: Chronic (11) Paraplegia Onset Date: 07/05/17 Current Visit: No Status: Chronic - Plan Plan: 1. Continue with IV antibiotic 2. Continue with local wound care 3. Wound care consultation/orthopedic/surgical consultation appreciated 4. Hep-Lock IV 5. Monitor CBC 6. Strict blood sugar monitoring 7. Pain control 8. GI and DVT prophylaxis Discharge Plan: Shelter Plan to discharge in: Greater than 2 days - Advance Directives Does patient have a Living Will: Yes Does patient have a Durable POA for Healthcare: No - Code Status/Comfort Care Code Status Assessed: Yes Code Status: Full Code Critical Care: No Time Spent Managing PTS Care (In Minutes): 45
--- NOTE | 2021-10-05 13:07 | RAD REPORT ---
EXAM DESCRIPTION: RAD - Fluoroscopy <1 Hour - 10/05/2021 1:00 pm CLINICAL HISTORY: Venous catheter insertion. CENTRAL LINE COMPARISON: No comparisons FINDINGS: Fluoroscopic imaging is submitted from placement of a venous catheter. Details of the pro cedure not available. Fluoroscopy time: 0.1 minutes
--- NOTE | 2021-10-05 13:39 | P.OP ---
Combination Man: Keven HOGUE Preoperative diagnosis: Right fourth and fifth toe infection with osteomyelitis and gangrene Postoperative diagnosis: Same Primary procedure: Right fourth and fifth toe transmetatarsal amputation Secondary procedure: Right subclavian triple-lumen catheter, fluoroscopy Anesthesia: MAC Estimated blood loss: Minimal Specimen: Right fourth and fifth toe transmetatarsal amputation Findings: As above Operative Technique: Patient brought to the OR and placed in supine position. MAC anesthesia begun. Dr. Young did his procedure on the left foot. Then right neck and chest prepped and draped in usual sterile fashion. Lidocaine 1% infiltrated locally. 18-gauge needle used to access the right internal jugular vein. Guidewire passed however it was difficult to advance beyond 10 cm, probably because of patient's anatomy. Therefore, 18-gauge needle used to access the right subclavian vein. Guidewire passed. Seldinger technique used. Vein dilated. Triple-lumen catheter placed under fluoroscopy. The tip was in the superior vena cava. The catheter was flushed with heparin and packed with heparin with good blood flow. 3-0 silk was used to secure the catheter to the chest wall. Sterile dressing applied. Then the right foot prepped and draped in the usual sterile fashion. 15 blade used to make ellipse of skin around the midfoot on the dorsum of the fourth and fifth toe as well as the plantar aspect and between the third and fourth webspace. Subcutaneous tissue divided and both metatarsal bones identified. Sharp and blunt dissection used to clear up the tissues around the metatarsal bones. Bone cutters used to divide both metatarsal bones. Fourth and fifth toe removed and sent to pathology after cultures were done. Wound irrigated and bleeding controlled with Cautery. Minimal oozing noted from the bone marrow. Easily considered controlled with Avitene. A wet-to-dry dressing change applied. Patient tolerated procedure in stable condition and taken to recovery room in good general condition. Complications: None Transferred to: Recovery Room Condition: Good
--- NOTE | 2021-10-05 14:03 | RAD REPORT ---
EXAM DESCRIPTION: RAD - Chest Single View - 10/05/2021 1:55 pm CLINICAL HISTORY: Status post central line placement Chest pain. COMPARISON: Chest Single View dated 10/03/2021; Chest Single View dated 04/17/2018; Chest Single View dated 01/03/2018; Chest Single View dated 12/12/2017 FINDINGS: Portable technique limits examination quality. Right-sided central venous catheter is in place with tip in the SVC. No pneumothorax. The heart is no rmal in size. No displaced fractures. IMPRESSION: No postprocedure pneumothorax.
[2021-10-05 14:11] VITALS: O2SAT 100
--- NOTE | 2021-10-05 22:45 | CON ---
Date of Consultation: 10/05/2021 History Of Present Illness: This is my first time seeing this patient to my knowledge. I was called this morning as she has a scheduled procedure for partial forefoot amputation on the right. However , it is noted that on the left she has a screw, which is easily seen and protruding through the skin at the region of her fifth metatarsal. General surgeon who was considering an operative procedure fo r her forefoot amputation has been consulted as probable screw removal concurrently on the contralate ral foot could be done. I spoke with the patient and family and this screw is in placed many many ye ars ago by another orthopedist. It is unknown how long this has been protruding through the skin as the patient does have paraplegia and is not ambulatory. On visual inspection, the screw has protrude d out of the skin somewhat. There is no surrounding erythema. X-rays are seen, which demonstrate th ere appears to be an old bunionette correction now with the screw in the fifth metatarsal and does no t appear to be holding anything of consequence at this point. Also, the bone itself does not appear to be frankly infected; however, the chance of osteomyelitis is high because of this protruding screw for some time. Risks, benefits, and alternatives of screw removal and possible other procedure has been discussed with the patient and family. They state they understand things as presented. They kn ow that if she does have underlying osteomyelitis, this may not be the only procedure done; however, we will see how she does with the screw removal and a small washout. They stated they understand thi ngs as presented and this may lead to further need for surgery, however, healing perhaps a fifth meta tarsal formal debridement could be difficult as well and hold its own risks. They agree to proceed. /JONY Voice ID: [id number] Report ID: [id number]
--- NOTE | 2021-10-05 23:06 | OP ---
Date of Procedure: 10/05/2021 Surgeon: Dick Young MD Preoperative Diagnosis: Retained left fifth metatarsal screw, which is protruding through the skin. Postoperative Diagnosis: Retained left fifth metatarsal screw, which is protruding through the skin. Procedure Performed: Removal of left protruding screw. Estimated Blood Loss: Less than 3 cc. Complications: There were no complications. Pathology Specimen: No pathology specimen sent with the possible exception of sending of the screw. Indications For Operation: Ms. Crockett is an 80-year-old female who has been treated by another physic roc for contralateral foot. She was scheduled for a partial forefoot amputation on the right because of gangrene. She does have a history of paraplegia and insensate feet. She is not ambulatory. I a m called by the other physician as there appears to be a protruding screw in her left foot. X-rays d emonstrate, what appears to be, a previous bunionectomy for tailor's bunion, now with protruding scre w. Risks, benefits, and alternatives of simple screw removal have been discussed with the patient an d family. They state they understand things as presented. There may be underlying osteomyelitis,, b ut we will address that as it needs to be addressed in the future if it does need to be. All of thei r questions were otherwise answered. Description Of Procedure: The patient was taken to the operating under room, she is in the supine po sition. Her left lower extremity was then prepped and draped in usual sterile fashion for procedure. The screw was easily seen and appears to be consistent with a mini frag screw. This was removed wi thout difficulty and the screw itself is partially bent, which was making a little more difficult; ho wever, it comes out without much problem at all. The wound was irrigated and she was placed in a emily rile dressing. The general surgeon will proceed with the right foot and he is notified that we have completed this portion. There were no complications. SE/MODL Voice ID: [id number] Report ID: [id number]
--- NOTE | 2021-10-06 02:12 | P.PN ---
Date of Service: 10/06/21 Subjective Review of Systems 10-point ROS is otherwise unremarkable Physical Examination - Vital Signs Reviewed - Physical Exam General: Other (Difficulty hearing. Arousable. Interacts but cannot really hear.) Respiratory: Diminished, Crackles/rales Cardiovascular: Regular rate/rhythm, Normal S1 S2, Systolic murmur Gastrointestinal: Normal bowel sounds, Soft and benign, Non-distended, No tenderness Musculoskeletal: No clubbing, No swelling, No tenderness Integumentary: Tenderness/swelling, Erythema, Warmth, Diabetic ulcer, Other (Screw coming out of the left foot) Neurological: Sensation intact, Cranial nerves 3-12 intact Assessment & Plan - Problems (Diagnosis) (1) Altered mental status Current Visit: Yes Status: Acute Qualifiers: Altered mental status type: unspecified Qualified Code(s): R41.82 - Altered mental status, unspecified (2) Osteomyelitis Current Visit: Yes Status: Acute Qualifiers: Osteomyelitis type: other acute Osteomyelitis location: other site Qualified Code(s): M86.18 - Other acute osteomyelitis, other site (3) Anemia Onset Date: 08/20/17 Current Visit: Yes Status: Chronic Qualifiers: Anemia type: due to chronic kidney disease Chronic kidney disease stage: stage 3 (moderate) Chronic kidney disease stage 3 subtype: stage 3b (GFR 30- 44) Qualified Code(s): N18.32 - Chronic kidney disease, stage 3b; D63.1 - Anemia in chronic kidney disease (4) CVA (cerebral vascular accident) Onset Date: 07/05/17 Current Visit: No Status: Acute CVA mechanism: other Qualified Code(s): I63.89 - Other cerebral infarction (5) Chronic renal disease Onset Date: 01/04/18 Current Visit: No Status: Acute (6) History of CVA with residual deficit Current Visit: No Status: Chronic (7) Hyperlipidemia Onset Date: 01/04/18 Current Visit: No Status: Chronic Hyperlipidemia type: unspecified Qualified Code(s): E78.5 - Hyperlipidemia, unspecified (8) Hypertension Onset Date: 07/05/17 Current Visit: No Status: Chronic (9) Hypothyroidism Onset Date: 01/04/18 Current Visit: No Status: Chronic Hypothyroidism type: unspecified Qualified Code(s): E03.9 - Hypothyroidism, unspecified (10) Neuropathy Onset Date: 01/04/18 Current Visit: No Status: Chronic (11) Paraplegia Onset Date: 07/05/17 Current Visit: No Status: Chronic - Plan Plan of care as mentioned below: 1. Continue with IV antibiotic 2. Continue with local wound care 3. Wound care consultation/orthopedic/surgical consultation appreciated 4. Hep-Lock IV 5. Monitor CBC 6. Strict blood sugar monitoring 7. Pain control 8. GI and DVT prophylaxis Discharge Plan: [facility] Plan to discharge in: Greater than 2 days - Advance Directives Does patient have a Living Will: Yes Does patient have a Durable POA for Healthcare: No - Code Status/Comfort Care Code Status Assessed: Yes Code Status: Full Code Critical Care: No Time Spent Managing PTS Care (In Minutes): 45
[2021-10-06 04:23] LABS: Hematocrit 27.9 % (36.0-45.0); Lymphocytes % 6.6 % (15.3-44.8); MPV 6.6 fL (7.6-11.3); RBC Red Blood Cell Count 3.21 M/uL (3.86-4.86)
[2021-10-06 05:09] LABS: Albumin 2.5 g/dL (3.4-5.0); Bilirubin Total 0.3 mg/dL (0.2-1.0); Potassium 4.1 mmol/L (3.5-5.1)
[2021-10-06 05:30] LABS: Blood Morphology Comment NOTED (NOT SEEN); Platelet Estimate ADEQ
[2021-10-06] MEDS: ENOXAPARIN 30 MG/0.3 ML SQ SCH (09:39)
--- NOTE | 2021-10-06 10:54 | P.PN ---
Date of Service: 10/06/21 Subjective: Patient is awake and resting comfortably. Objective: Vital signs are stable she is afebrile. UA is showing greater than 100,000 gram-negative rods. Wound cultures are pending. Gram stain shows gram- positive cocci. PICC line has been placed. Examination of the right lower extremity shows the dressing to be clean dry and intact. Assessment: Status post right fourth and fifth toe transmetatarsal amputation. Probable UTI and osteomyelitis. Plan: Patient can be discharged on IV vancomycin per protocol. Once the cu ltures and sensitivities are available we can adjust the antibiotics at the long-term. I will discussed the discharge plan with Dr. Win. Wound care as ordered. CC:
[2021-10-06] MEDS ORDERED: levoFLOXacin 750 MG TAB PO SCH (12:00)
--- NOTE | 2021-10-06 17:30 | RAD REPORT ---
EXAM DESCRIPTION: RAD - Chest Single View - 10/06/2021 4:08 am CLINICAL HISTORY: The patient is 80 years old and is Female; PICC line placement TECHNIQUE: Frontal view of the chest. COMPARISON: Chest radiograph October 05, 2021 FINDINGS: LUNGS: The left lung is inadequately evaluated secondary to the patients and positioning . The right lung is clear. There are low lung volumes. PLEURAL SPACE: Unremarkable. No pneumothorax. HEART: Unremarkable. No cardiomegaly. MEDIASTINUM: Unremarkable. BONES/JOINTS: There are degenerative changes of the bones. TUBES, LINES AND DEVICES: A left upper extremity PICC is present with the tip in the SVC. Right subclavian central venous catheter tip is within the SVC. UPPER ABDOMEN: Unremarkable as visualized. IMPRESSION: A left upper extremity PICC is present with the tip in the SVC. Electronically signed by: Angie Navarro MD 10/06/2021 5:21 AM CDT Due to temporary technical issues with the PACS/Fluency reporting system, reports are being signed by the in house radiologists without review as a courtesy to insure prompt reporting. The interpreting radiologist is fully responsible for the content of the report.
[2021-10-06 17:38] VITALS: BP 140/68; TEMP 98.9
[2021-10-07] MEDS ORDERED: ENOXAPARIN 40 MG/0.4 ML SQ SCH (09:00)
--- NOTE | 2021-11-07 00:08 | P.DS ---
Discharge Date: 10/06/21 Primary Care Provider: Dr. Garza Disposition: TRANSFER TO SNF - REHAB Discharge Condition: GOOD Reason for Admission: Osteomyelitis R 5th Toe - Problems (1) Altered mental status Status: Acute Qualifiers: Altered mental status type: unspecified Qualified Code(s): R41.82 - Altered mental status, unspecified (2) Osteomyelitis Status: Acute Qualifiers: Osteomyelitis type: other acute Osteomyelitis location: other site Qualified Code(s): M86.18 - Other acute osteomyelitis, other site (3) Anemia Onset Date: 08/20/17 Status: Chronic Qualifiers: Anemia type: due to chronic kidney disease Chronic kidney disease stage: stage 3 (moderate) Chronic kidney disease stage 3 subtype: stage 3b (GFR 30- 44) Qualified Code(s): N18.32 - Chronic kidney disease, stage 3b; D63.1 - Anemia in chronic kidney disease (4) CVA (cerebral vascular accident) Onset Date: 07/05/17 Status: Acute Qualifiers: CVA mechanism: other Qualified Code(s): I63.89 - Other cerebral infarction (5) Chronic renal disease Onset Date: 01/04/18 Status: Acute Qualifiers: (6) History of CVA with residual deficit Status: Chronic (7) Hyperlipidemia Onset Date: 01/04/18 Status: Chronic Qualifiers: Hyperlipidemia type: unspecified Qualified Code(s): E78.5 - Hyperlipidemia, unspecified (8) Hypertension Onset Date: 07/05/17 Status: Chronic Qualifiers: Hypertension type: essential hypertension (9) Hypothyroidism Onset Date: 01/04/18 Status: Chronic Qualifiers: Hypothyroidism type: unspecified Qualified Code(s): E03.9 - Hypothyroidism, unspecified (10) Neuropathy Onset Date: 01/04/18 Status: Chronic (11) Paraplegia Onset Date: 07/05/17 Status: Chronic Brief History of Present Illness: Patient is an 80-year-old female with past medical history of CVA with right-sided deficits, hemiparesis, hypertension, hypothyroidism who presented to the ED via EMS because longterm wanted her R pinky toe to get checked out. She had been taking clindamycin and Flagyl for infection of the toe. Upon presentation it appears gangrenous. X-ray showed signs of osteomyelitis. Labs significant for WBC 12.4, hemoglobin 10.3, creatinine 1.37, albumin 2.7. Pro- Eloy and lactic acid within normal limits. Vital signs stable. Patient's baseline mental status is unknown. She is unable to answer questions. She states that she cannot hear you when you speak to her however she seems agitated and confused. Patient has been seen by Dr. Cooley in the past, he has been notif ied. He wishes to admit patient and start on vancomycin and plan for surgery tomorrow. Will admit patient for medical management. Hospital Course: Patient has done well during hospital stay. Patient's going to continue with antibiotic therapy. Continue on DVT prophylaxis. Patient will follow-up with primary care provider and general surgery in 1 to 2 weeks. Vital Signs/Physical Exam: Temp Pulse Resp BP Pulse Ox 98.9 F 102 H 20 140/68 94 10/06/21 16:00 10/06/21 16:00 10/06/21 16:00 10/06/21 16:00 10/06/21 16:00 General: Alert, Demented Laboratory Data at Discharge: WBC 15.1 K/uL (4.3-10.9) H D 10/06/21 04:05 Hgb 8.7 g/dL (12.0-15.0) L 10/06/21 04:05 Hct 27.9 % (36.0-45.0) L 10/06/21 04:05 Plt Count 527 K/uL (152-406) H 10/06/21 04:05 Sodium 144 mmol/L (136-145) 10/06/21 04:05 Potassium 4.1 mmol/L (3.5-5.1) 10/06/21 04:05 BUN 41 mg/dL (7-18) H 10/06/21 04:05 Creatinine 1.15 mg/dL (0.55-1.3) 10/06/21 04:05 Glucose 71 mg/dL (74-106) L 10/06/21 04:05 Total Bilirubin 0.3 mg/dL (0.2-1.0) 10/06/21 04:05 AST 17 U/L (15-37) 10/06/21 04:05 ALT 12 U/L (12-78) 10/06/21 04:05 Alkaline Phosphatase 89 U/L (45-117) 10/06/21 04:05 Triglycerides 36 mg/dL (<150) 10/04/21 03:14 Cholesterol 65 mg/dL (<200) 10/04/21 03:14 HDL Cholesterol 32 mg/dL (40-60) L 10/04/21 03:14 Cholesterol/HDL Ratio 2.03 10/04/21 03:14 Home Medications: Levothyroxine Sodium 100 mcg PO [id number] 07/03/17 Ascorbic Acid [Vitamin C*] 500 mg PO DAILY 12/11/17 Buspirone HCl [Buspar] 20 mg PO TID 10/05/21 Docusate Sodium [Stool Softener] 100 mg PO BID 10/05/21 Morphine *Extended Release* [MS Contin*] 15 mg PO TID 10/05/21 Multivitamin 1 tab PO DAILY 10/05/21 Paroxetine HCl [Paroxetine ER] 50 mg PO DAILY 10/05/21 Trazodone HCl [Desyrel] 300 mg PO BEDTIME 10/05/21 Zinc Sulfate [Zinc Sulfate*] 220 mg PO DAILY 10/05/21 Enoxaparin Sodium [Lovenox 40 MG INJ*] 40 mg SQ DAILY #14 syr 10/06/21 Levofloxacin [Levaquin] 500 mg PO DAILY #7 tablet 10/06/21 New Medications: Levofloxacin [Levaquin] 500 mg PO DAILY #7 tablet Enoxaparin Sodium [Lovenox 40 MG INJ*] 40 mg SQ DAILY #14 syr Physician Discharge Instructions: -DC IV and DC home -Follow-up with PCP in 1 to 2 weeks -Follow-up with surgery in 1 to 2 weeks -Please call Dr. Win at [phone] if any questions regarding hospital stay -Please call nursing station at [phone] if any nursing or medication questions -Return to the emergency room if symptoms worsen Diet: Regular Activity: Fall precautions Followup: Nathaniel Garza MD [Primary Care Provider] - Time spent managing pt's care (in minutes): 35
== END 2021-10-06 16:37 | DRG 475 ==
LOC: ER 18:10 → ERHOLD 22:45 → 4TH 10-04 10:45
PROVIDERS: ADMIT Hospitalist; ATTEND Hospitalist
PROC: 02HV33Z Insertion of Infusion Device into Superior Vena Cava, Percutaneous Approach (ICD-10-PCS; 2021-10-05)
PROC: B518YZA Fluoroscopy of Superior Vena Cava using Other Contrast, Guidance (ICD-10-PCS; 2021-10-05)
PROC: 0QP Lower Bones, Removal (ICD-10-PCS; principal; 2021-10-05 09:00)
PROC: 0Y6M0ZD Detachment at Right Foot, Partial 4th Ray, Open Approach (ICD-10-PCS; 2021-10-05 09:00)
PROC: 0Y6M0ZF Detachment at Right Foot, Partial 5th Ray, Open Approach (ICD-10-PCS; 2021-10-05 09:00)
DX: M86.171 Other acute osteomyelitis, right ankle and foot (principal); N39.0 Urinary tract infection, site not specified; T84.223A Displacement of internal fixation device of bones of foot and toes, initial encounter; I69.351 Hemiplegia and hemiparesis following cerebral infarction affecting right dominant side; I96 Gangrene, not elsewhere classified; E44.0 Moderate protein-calorie malnutrition; Y79.8 Miscellaneous orthopedic devices associated with adverse incidents, not elsewhere classified; I69.320 Aphasia following cerebral infarction; E03.9 Hypothyroidism, unspecified; G62.9 Polyneuropathy, unspecified; D63.1 Anemia in chronic kidney disease; I12.9 Hypertensive chronic kidney disease with stage 1 through stage 4 chronic kidney disease, or unspecified chronic kidney disease; N18.32 Chronic kidney disease, stage 3b; E78.5 Hyperlipidemia, unspecified; K21.9 Gastro-esophageal reflux disease without esophagitis; Z68.23 Body mass index [BMI] 23.0-23.9, adult; Z96.653 Presence of artificial knee joint, bilateral; Z74.01 Bed confinement status; Z90.49 Acquired absence of other specified parts of digestive tract; Z20.822 Contact with and (suspected) exposure to COVID-19; Z88.0 Allergy status to penicillin; Z88.2 Allergy status to sulfonamides
CPT/HCPCS: 36415; 36569; 70450; 71045; 76000; 80053; 80061; 80202; 81003; 81015; 83605; 84145; 84439; 84443; 85025; 87040; 87070; 87075; 87077; 87086; 87088; 87186; 87205; 88305; 88311; 93005; 93306; 93926; 96361; 96374; 99284; J1644; J1650; J2704; J3370; J3590; J7040; J7050; J7120; U0003